=== PATIENT | male | born 1975 | race Caucasian/White ===

== ENCOUNTER 2017-06-12 01:35 | Emergency (ER) | payer SELFPAY ==
[~2017-06-12] VITALS: Ht 167.6 cm; Wt 60.0 kg
[2017-06-12 02:07] VITALS: BP 121/70; PULSE 98; RESP 16; TEMP 99.2; O2SAT 98
[2017-06-12] MEDS ORDERED: DIAZEPAM 5 MG TAB PO ONE (02:45)
[2017-06-12] MEDS ORDERED: KETOROLAC TROMETHAMINE 60 MG/2 ML (IM) VIAL IM ONE (02:45)
--- NOTE | 2017-06-12 03:11 | RADRPT ---
EXAM DATE/TIME: 06/12/2017 02:55 [facility] COMPARISON: PELVIS AP ONLY, September 02, 2015, 11:26. INDICATIONS : Worsening low back pain x 2 days, no new injury or fall. MEDICAL HISTORY : None. Previous Lumbar pain from fall 1 year ago SURGICAL HISTORY : Left femur, Right Shoulder ENCOUNTER: Initial ACUITY: 2 days PAIN SCORE: 8/10 LOCATION: Bilateral Lumbar FINDINGS: There are five non-rib bearing vertebral bodies. The vertebral bodies are in normal alignment withou t evidence of subluxation or scoliosis. The disc spaces are maintained. Minimal spurring is seen. T he posterior elements are intact without evidence of spondylolysis. The pedicles are intact. Bony m ineralization is normal. No fracture is identified. There is a femoral vishal seen on the lower lateral view. CONCLUSION: No acute disease. Lavell Pradhan MD on June 12, 2017 at 3:07 Board Certified Radiologist. This report was verified electronically.
--- NOTE | 2017-06-12 04:24 | PD ---
HPI Chief Complaint: Back/ Neck Pain or Injury Time Seen by Provider: 02:08 Travel History International Travel<30 days: No Contact w/Intl Traveler<30days: No Traveled to known affect area: No History of Present Illness HPI Patient is a 42-year-old male woke up tonight with severe right-sided lower back pain that radiates to his lower leg sciatic distribution. Denies trauma he denies heavy lifting he denies vesicles he denies any recent reason for straining his back. He also denies dysuria denies flank pain no history of kidney stones he is a thin 42-year-old. He reports that a few years back he had a severe fall with fractured back vertebra but this pain is nothing related to that pain and that was cleared over a year ago main complaint is severe stabbing sharp pain in the lower back right-sided radiation down to the right leg he took nothing for the pain. He has not seen another doctor for this injury PFSH Past Medical History Cardiovascular Problems: No Endocrine: No Genitourinary: No Immune Disorder: No Musculoskeletal: Yes (CHRONIC BACK PAIN S/P INJURY) Neurologic: No Reproductive: No Respiratory: No Social History Alcohol Use: No Tobacco Use: Yes Substance Use: No Allergies-Medications (Allergen,Severity, Reaction): Coded Allergies: No Known Allergies (Unverified Adverse Reaction, Unknown, 06/12/17) Reported Meds & Prescriptions Reported Meds & Active Scripts Active No Active Prescriptions or Reported Medications Review of Systems Except as stated in HPI: all other systems reviewed are Neg Musculoskeletal: Positive: Myalgias, Pain (right lower spinal area to leg radiation) Physical Exam Narrative GENERAL: thin body habitus multiple tatooes SKIN: Warm and dry. HEAD: Atraumatic. Normocephalic. EYES: Pupils equal and round. No scleral icterus. No injection or drainage. ENT: No nasal bleeding or discharge. Mucous membranes pink and moist. NECK: Trachea midline. No JVD. BACK lumbral tender right paraspinal to gluteal area CARDIOVASCULAR: Regular rate and rhythm. RESPIRATORY: No accessory muscle use. Clear to auscultation. Breath sounds equal bilaterally. GASTROINTESTINAL: Abdomen soft, non-tender, nondistended. Hepatic and splenic margins not palpable. MUSCULOSKELETAL: Extremities right leg lift elicited pain .. without clubbing , cyanosis, or edema. No obvious deformities. NEUROLOGICAL: Awake and alert. No obvious cranial nerve deficits. Motor grossly within normal limits. Five out of 5 muscle strength in the arms and legs. Normal speech. PSYCHIATRIC: Appropriate mood and affect; insight and judgment normal. Data Data Last Documented VS Vital Signs Date Time Temp Pulse Resp B/P (MAP) Pulse Ox O2 Delivery O2 Flow Rate FiO2 06/12/17 02:07 99.2 98 16 121/70 (87) 98 Orders Orders Ketorolac Inj (Toradol Inj) (06/12/17 02:45) Diazepam (Valium) (06/12/17 02:45) Spine, Lumbar Comp W/Obliq (06/12/17 ) Ed Discharge Order (06/12/17 05:02) [facility] Medical Decision Making Medical Screen Exam Complete: Yes Emergency Medical Condition: Yes Medical Record Reviewed: Yes Differential Diagnosis muscle spasm vs fracture radiculopathy , disc disease. Narrative Course Patient was given Toradol 60 IM 5 mg by mouth Valium I reviewed his prior films from 2016 where he had fractures of his thoracic spine the endplates at T10 and T11 however his pain tonight is not related to those injuries and x- rays done do not show any new changes safe to discharge home with ibuprofen a few Valium discharged follow-up as an outpatient Diagnosis Primary Impression: Radicular pain of lower extremity Patient Instructions: Acute Low Back Pain (ED), General Instructions Scripts Cyclobenzaprine (Flexeril) 10 Mg Tab 10 MG PO TID for Muscle Spasm, #20 TAB 0 Refills Prov: Jesús Mast MD 06/12/17 Ibuprofen (Ibuprofen) 600 Mg Tab 600 MG PO Q6H Y for Pain/Inflammation, #20 TAB 0 Refills Prov: Jesús Mast MD 06/12/17 Disposition: 01 DISCHARGE HOME Condition: Good Jesús Mast MD Jun 12, 2017 04:24
[2017-06-12] MEDS ORDERED: CYCL10TA PO (05:10)
[2017-06-12] MEDS ORDERED: IBUP-232 PO (05:10)
[2017-06-12] MEDS ORDERED: ACETAMINOPHEN/HYDROcodone 325 MG/5 MG TAB PO ONE (06:00)
[2017-06-12 07:05] VITALS: BP 124/83; PULSE 81; RESP 17; TEMP 97.8; O2SAT 98
[2017-06-12] MEDS ORDERED: MORPHINE SULFATE 2 MG/ML INJ IV PUSH ONE (07:30)
[2017-06-12] MEDS ORDERED: ONDANSETRON HCL 4 MG/2 ML VIAL IV PUSH ONE (07:30)
[2017-06-12 07:45] VITALS: RESP 16
--- NOTE | 2017-06-12 08:06 | RADRPT ---
EXAM DATE/TIME: 06/12/2017 07:26 [facility] COMPARISON: No previous studies available for comparison. INDICATIONS : Pain. MEDICAL HISTORY : None. SURGICAL HISTORY : Leg and shoulder. ENCOUNTER: Initial ACUITY: 1 day PAIN SCORE: 5/10 LOCATION: Paraspinal TECHNIQUE: Multiplanar multisequence MRI of the thoracic spine was performed. FINDINGS: VERTEBRA: Normal vertebral body height. Homogeneous marrow signal. ALIGNMENT: Normal. CORD: Normal position and configuration. T1-T2: Normal. T2-T3: The thecal sac has a normal diameter. No evidence of disc bulge or protrusion. T3-T4: The thecal sac has a normal diameter. No evidence of disc bulge or protrusion. T4-T5: The thecal sac has a normal diameter. No evidence of disc bulge or protrusion. T5-T6: The thecal sac has a normal diameter. No evidence of disc bulge or protrusion. T6-T7: The thecal sac has a normal diameter. No evidence of disc bulge or protrusion. T7-T8: The thecal sac has a normal diameter. No evidence of disc bulge or protrusion. T8-T9: The thecal sac has a normal diameter. No evidence of disc bulge or protrusion. T9-T10: The thecal sac has a normal diameter. No evidence of disc bulge or protrusion. T10-T11: There is a small superior endplate disc herniation at the level of the T10 with mild anterior bony pr oductive changes. The thecal sac has a normal diameter. No evidence of disc bulge or protrusion. T11-T12: The thecal sac has a normal diameter. No evidence of disc bulge or protrusion. T12-L1: The thecal sac has a normal diameter. No evidence of disc bulge or protrusion. Moderate facet degene rative change. CONCLUSION: Small superior endplate disc herniation at the level of T10 with anterior bony productive changes. No posterior component. Moderate facet hypertrophy present at the level of T12/L1. Otherwise negative e xam.. Parvin Rios MD on June 12, 2017 at 8:01 Board Certified Radiologist. This report was verified electronically.
--- NOTE | 2017-06-12 08:25 | RADRPT ---
EXAM DATE/TIME: 06/12/2017 07:43 [facility] COMPARISON: No previous studies available for comparison. INDICATIONS : Pain. MEDICAL HISTORY : None. SURGICAL HISTORY : Leg and shoulder. ENCOUNTER: Initial ACUITY: 1 day PAIN SCORE: 5/10 LOCATION: Paraspinal TECHNIQUE: Multiplanar multisequence MRI of the lumbar spine was performed without contrast. FINDINGS: The most caudal appearing lumbar vertebra is numbered as L5. VERTEBRAE: Homogeneous signal. Normal alignment. CONUS: Normal level and configuration. T12-L1: The thecal sac has a normal diameter. No evidence of disc bulge or protrusion. The neural foramina are patent bilaterally. Moderate facet hypertrophy. L1-L2: The thecal sac has a normal diameter. No evidence of disc bulge or protrusion. The neural foramina are patent bilaterally. Moderate to severe facet hypertrophy. L2-L3: Broad-based disc bulge extending into the neural foramina. Moderate to severe facet degenerative lock ges. Mild bilateral neural foraminal narrowing. L3-L4: Broad-based disc bulge with the disc extending into the neural foramina. Moderate to severe facet deg enerative change. Mild bilateral neural foraminal narrowing. L4-L5: Broad-based disc bulge. Moderate facet degenerative change. Mild bilateral neural foraminal narrowing . L5-S1: Broad-based posterior disc bulge. This extends towards the left neuroforamina contribute to mild left -sided neural foraminal narrowing and mild mass effect on the exiting left nerve root. CONCLUSION: Multilevel degenerative changes which are most significant within the region of the facet joints. Mild degenerative disc changes which extend to the neuroforamina contribute to mild bilateral neurofo raminal narrowing.. Parvin Rios MD on June 12, 2017 at 8:16 Board Certified Radiologist. This report was verified electronically.
[2017-06-12] MEDS ORDERED: PRED20 PO (09:18)
[2017-06-12] MEDS ORDERED: ZANT300T PO (09:18)
--- NOTE | 2017-06-12 09:19 | PD ---
Physical Exam Narrative Patient was seen by ED physician and signed out to me. Data Data Last Documented VS Vital Signs Date Time Temp Pulse Resp B/P (MAP) Pulse Ox O2 Delivery O2 Flow Rate FiO2 06/12/17 07:45 16 06/12/17 07:05 97.8 81 124/83 (97) 98 Room Air Orders Orders Ketorolac Inj (Toradol Inj) (06/12/17 02:45) Diazepam (Valium) (06/12/17 02:45) Spine, Lumbar Comp W/Obliq (06/12/17 ) Acetamin-Hydrocod 325-5 Mg ([place] 5-325 (06/12/17 06:00) Mri L Spine W/O Contrast (06/12/17 ) Mri T Spine W/O Contrast (06/12/17 ) Morphine Inj (Morphine Inj) (06/12/17 07:30) Ondansetron Inj (Zofran Inj) (06/12/17 07:30) MDM Supervised Visit with LYNDSEY: No Interpretation(s) Last Impressions Thoracic Spine MRI 06/12/17 0000 Signed Impressions: Service Date/Time: Monday, June 12, 2017 07:26 - CONCLUSION: Small superior endplate disc herniation at the level of T10 with anterior bony productive changes. No posterior component. Moderate facet hypertrophy present at the level of T12/L1. Otherwise negative exam.. Parvin Rios MD Lumbar Spine X-Ray 06/12/17 0000 Signed Impressions: Service Date/Time: Monday, June 12, 2017 02:55 - CONCLUSION: No acute disease. Lavell Pradhan MD Lumbar Spine MRI 06/12/17 0000 Signed Impressions: Service Date/Time: Monday, June 12, 2017 07:43 - CONCLUSION: Multilevel degenerative changes which are most significant within the region of the facet joints. Mild degenerative disc changes which extend to the neuroforamina contribute to mild bilateral neuroforaminal narrowing.. Parvin Rios MD Narrative Course Patient was given medication including Toradol, morphine, Lortab, Valium and Zofran. Patient also given Decadron 8 mg IV. Diagnosis Primary Impression: Radicular pain of lower extremity Additional Impression: Low back pain Qualified Codes: M54.5 - Low back pain Patient Instructions: General Instructions, Acute Low Back Pain (ED) Departure Forms: Tests/Procedures Additional Instruction: Take medications as needed for pain. Follow-up with orthopedist and personal physician. Return if worse. Scripts Ranitidine (Zantac) 300 Mg Tab 300 MG PO DAILY, #10 TAB 0 Refills Prov: Osmin Abdalla MD 06/12/17 Prednisone (Prednisone) 20 Mg Tab 20 MG PO DAILY, #10 TAB 0 Refills Prov: Osmin Abdalla MD 06/12/17 Cyclobenzaprine (Flexeril) 10 Mg Tab 10 MG PO TID for Muscle Spasm, #20 TAB 0 Refills Prov: Jesús Mast MD 06/12/17 Ibuprofen (Ibuprofen) 600 Mg Tab 600 MG PO Q6H Y for Pain/Inflammation, #20 TAB 0 Refills Prov: Jesús Mast MD 06/12/17 Disposition: 01 DISCHARGE HOME Condition: Good Osmin Abdalla MD Jun 12, 2017 09:19
[2017-06-12] MEDS ORDERED: DEXAMETHASONE SOD PHOS 4 MG/ML VIAL IV PUSH ONE (09:30)
[2017-06-12 09:35] VITALS: BP 130/77; TEMP 97.8
== END 2017-06-12 09:40 | disposition home or self-care (01) ==
LOC: NEPE 01:35
DX: M54.5 Low back pain (principal); Z72.0 Tobacco use
CPT/HCPCS: 72110; 72146; 72148; 96372; 96374; 96375; 99284; J1100; J1885; J2270; J2405

== ENCOUNTER 2017-07-15 13:00 | Inpatient (IN) | payer OTHER ==
[~2017-07-15] VITALS: Ht 170.2 cm; Wt 90.8 kg
[~2017-07-15 13:00] MED LIST: CYCL10TA PO; IBUP-232 PO; PRED20 PO; ZANT300T PO
[2017-07-15] MEDS ORDERED: GADODIAMIDE PF 287 MG/ML 5 ML VIAL (for RAD MRI) IVCONTRAST ONE (13:01)
[2017-07-15 13:32] VITALS: BP 103/61; PULSE 90; RESP 17; TEMP 98.6; O2SAT 100
[2017-07-15] MEDS ORDERED: KETOROLAC TROMETHAMINE 30 MG/ML (IVP) VIAL IVP ONE (16:15)
[2017-07-15] MEDS ORDERED: ONDANSETRON HCL 4 MG/2 ML VIAL IVP ONE (16:15)
[2017-07-15] MEDS ORDERED: MORPHINE SULFATE 4 MG/ML INJ IV PUSH ONE (16:15)
[2017-07-15 17:09] LABS: AUTOMATED NEUTROPHIL # 18.1 TH/MM3 (1.8-7.7); BASOPHIL # 0.1 TH/MM3 (0-0.2); BASOPHIL % 0.4 % (0.0-2.0); EOSINOPHIL % 0.1 % (0.0-4.0); HEMOGLOBIN 8.9 GM/DL (13.0-17.0); LYMPH % 10.9 % (9.0-44.0); LYMPHOCYTE # 2.4 TH/MM3 (1.0-4.8); MEAN CELL VOLUME 69.6 FL (80.0-100.0); MEAN CORPUSCULAR HEMOGLOBIN 22.9 PG (27.0-34.0); MEAN CORPUSCULAR HGB CONC 32.9 % (32.0-36.0); MEAN PLATELET VOLUME 7.4 FL (7.0-11.0); MONO % 4.9 % (0.0-8.0); MONOCYTE # 1.1 TH/MM3 (0-0.9); NEUT % 83.7 % (16.0-70.0); PLATELET COUNT 841 TH/MM3 (150-450); RED BLOOD COUNT 3.88 MIL/MM3 (4.50-5.90); WHITE BLOOD COUNT 21.6 TH/MM3 (4.0-11.0)
[2017-07-15 17:24] LABS: ALBUMIN 2.7 GM/DL (3.4-5.0); ALT (GPT) 17 U/L (12-78); AST (GOT) 24 U/L (15-37); BICARBONATE 24.5 MEQ/L (21.0-32.0); BLOOD UREA NITROGEN 9 MG/DL (7-18); CALCIUM 8.8 MG/DL (8.5-10.1); CHLORIDE 106 MEQ/L (98-107); CREATININE 0.69 MG/DL (0.60-1.30); GLOMERULAR FILTRATION RATE 126 ML/MIN (>89); GLUCOSE,RANDOM 96 MG/DL (74-106); SODIUM (NA) 137 MEQ/L (136-145)
[2017-07-15 17:26] LABS: ALKALINE PHOSPHATASE 109 U/L (45-117); TOTAL BILIRUBIN ADULT 0.4 MG/DL (0.2-1.0); TOTAL PROTEIN 8.7 GM/DL (6.4-8.2)
--- NOTE | 2017-07-15 17:54 | PD ---
HPI Chief Complaint: Back/ Neck Pain or Injury Time Seen by Provider: 15:55 Travel History International Travel<30 days: No Contact w/Intl Traveler<30days: No Traveled to known affect area: No History of Present Illness HPI 42-year-old male arrives complaining of low back pain. He states it has been painful for 5 months. He denies trauma. He reports IV drug abuse 6 months ago however nothing in the interim. He has had no fever. He denies incontinence of urine or stool. He reports lower extremity paresthesias. Back pain is constant. It is worse with palpation. No history of diabetes. No history of cancer. No use of immunomodulation agents. PFSH Past Medical History Cardiovascular Problems: No Diminished Hearing: No Endocrine: No Genitourinary: No Immune Disorder: No Musculoskeletal: Yes (CHRONIC BACK PAIN S/P INJURY) Neurologic: No Reproductive: No Respiratory: No Tetanus Vaccination: < 5 Years Influenza Vaccination: No Social History Alcohol Use: No Tobacco Use: Yes Substance Use: Yes (iv drug abuse) Allergies-Medications (Allergen,Severity, Reaction): Coded Allergies: No Known Allergies (Unverified Adverse Reaction, Unknown, 07/15/17) Reported Meds & Prescriptions Reported Meds & Active Scripts Active Zantac (Ranitidine HCl) 300 Mg Tab 300 Mg PO DAILY Prednisone 20 Mg Tab 20 Mg PO DAILY Flexeril (Cyclobenzaprine HCl) 10 Mg Tab 10 Mg PO TID Ibuprofen 600 Mg Tab 600 Mg PO Q6H PRN Review of Systems Except as stated in HPI: all other systems reviewed are Neg General / Constitutional: No: Fever Physical Exam Narrative GENERAL: 42-year-old male somewhat thin but cooperative pleasant Vital Signs Date Time Temp Pulse Resp B/P (MAP) Pulse Ox O2 Delivery O2 Flow Rate FiO2 07/15/17 13:32 98.6 90 17 103/61 (75) 100 SKIN: Warm and dry. No evidence of recent intravenous scarring. HEAD: Atraumatic. Normocephalic. EYES: Pupils equal and round. No scleral icterus. No injection or drainage. ENT: No nasal bleeding or discharge. Mucous membranes pink and moist. NECK: Trachea midline. No JVD. CARDIOVASCULAR: Regular rate and rhythm. RESPIRATORY: No accessory muscle use. Clear to auscultation. Breath sounds equal bilaterally. GASTROINTESTINAL: Abdomen soft, non-tender, nondistended. Hepatic and splenic margins not palpable. MUSCULOSKELETAL: Ambulatory. Minimal TTP lumbar spine. No gross deformity. NEUROLOGICAL: Awake and alert. No obvious cranial nerve deficits. Motor grossly within normal limits. Five out of 5 muscle strength in the arms and legs. Normal speech. PSYCHIATRIC: Appropriate mood and affect; insight and judgment normal. Data Data Last Documented VS Vital Signs Date Time Temp Pulse Resp B/P (MAP) Pulse Ox O2 Delivery O2 Flow Rate FiO2 07/15/17 13:32 98.6 90 17 103/61 (75) 100 Orders Orders Complete Blood Count With Diff (07/15/17 16:13) Comprehensive Metabolic Panel (07/15/17 16:13) Iv Access Insert/Monitor (07/15/17 16:13) Ecg Monitoring (07/15/17 16:13) Oximetry (07/15/17 16:13) Morphine Inj (Morphine Inj) (07/15/17 16:15) Ondansetron Inj (Zofran Inj) (07/15/17 16:15) Sodium Chloride 0.9% Flush (Ns Flush) (07/15/17 16:15) Ketorolac Inj (Toradol Inj) (07/15/17 16:15) Westergren Sedimentation Rate (07/15/17 16:13) Mri L Spine W&W/O Contrast (07/15/17 ) Mri T Spine W & W/O Contrast (07/15/17 ) Morphine Inj (Morphine Inj) (07/15/17 18:45) Vancomycin Inj (Vancomycin Inj) (07/15/17 18:45) Ceftriaxone Inj (Rocephin Inj) (07/15/17 18:45) Blood Culture (07/15/17 18:44) Mri C Spine W&W/O Contrast (07/15/17 ) Labs Laboratory Tests Test 07/15/17 16:35 White Blood Count 21.6 TH/MM3 Red Blood Count 3.88 MIL/MM3 Hemoglobin 8.9 GM/DL Hematocrit 27.0 % Mean Corpuscular Volume 69.6 FL Mean Corpuscular Hemoglobin 22.9 PG Mean Corpuscular Hemoglobin Concent 32.9 % Red Cell Distribution Width 17.0 % Platelet Count 841 TH/MM3 Mean Platelet Volume 7.4 FL Neutrophils (%) (Auto) 83.7 % Lymphocytes (%) (Auto) 10.9 % Monocytes (%) (Auto) 4.9 % Eosinophils (%) (Auto) 0.1 % Basophils (%) (Auto) 0.4 % Neutrophils # (Auto) 18.1 TH/MM3 Lymphocytes # (Auto) 2.4 TH/MM3 Monocytes # (Auto) 1.1 TH/MM3 Eosinophils # (Auto) 0.0 TH/MM3 Basophils # (Auto) 0.1 TH/MM3 CBC Comment DIFF FINAL Differential Comment Erythrocyte Sedimentation Rate GREATER THAN 140 mm/hr Blood Urea Nitrogen 9 MG/DL Creatinine 0.69 MG/DL Random Glucose 96 MG/DL Total Protein 8.7 GM/DL Albumin 2.7 GM/DL Calcium Level 8.8 MG/DL Alkaline Phosphatase 109 U/L Aspartate Amino Transf (AST/SGOT) 24 U/L Alanine Aminotransferase (ALT/SGPT) 17 U/L Total Bilirubin 0.4 MG/DL Sodium Level 137 MEQ/L Potassium Level 3.6 MEQ/L Chloride Level 106 MEQ/L Carbon Dioxide Level 24.5 MEQ/L Anion Gap 7 MEQ/L Estimat Glomerular Filtration Rate 126 ML/MIN MDM Medical Decision Making Medical Screen Exam Complete: Yes Emergency Medical Condition: Yes Medical Record Reviewed: Yes Differential Diagnosis Epidural abscess, chronic pain, fracture DJD Narrative Course CBC & BMP Diagram 07/15/17 16:35 Total Protein 8.7 H, Albumin 2.7 L, Calcium Level 8.8, Alkaline Phosphatase 109 , Aspartate Amino Transf (AST/SGOT) 24, Alanine Aminotransferase (ALT/SGPT) 17, Total Bilirubin 0.4 Rocephin vancomycin started. Blood cultures drawn. Patient care turned over to Dr. Gonzalez at 7:00 PM. Shaheen Uriostegui MD Jul 15, 2017 17:54
[2017-07-15] MEDS ORDERED: MORPHINE SULFATE 8 MG/ML INJ IV PUSH ONE (18:45)
[2017-07-15] MEDS ORDERED: VANCOMYCIN INJ 1,750 MG in SODIUM CHLORID 0.9% 500 ML INJ 500 ML IV ONE (18:45)
[2017-07-15] MEDS ORDERED: cefTRIAXone INJ 2,000 MG in SODIUM CHLORIDE 0.9% INJ 100 ML IV ONE (18:45)
[2017-07-15] MEDS ORDERED: HYDROmorphone HCL PF 2 MG/ML VIAL IV PUSH ONE (19:30)
[2017-07-15 20:50] VITALS: BP 120/64; PULSE 89; RESP 16; O2SAT 100
--- NOTE | 2017-07-15 21:08 | RADRPT ---
EXAM DATE/TIME: 07/15/2017 19:39 [facility] COMPARISON: MRI THORACIC SPINE W/O CONTRAST, June 12, 2017, 7:26. INDICATIONS : Pain. Osteomyelitis. CONTRAST: 11 cc Omniscan (gadodiamide) IV MEDICAL HISTORY : IV drug abuse. SURGICAL HISTORY : Right femur and shoulder. Enhancing paravertebral tissue is also noted to surrounding the T10 and T11 vertebra bodies are. ENCOUNTER: Initial ACUITY: 1 day PAIN SCORE: 5/10 LOCATION: Back. TECHNIQUE: Multiplanar multisequence MRI of the thoracic spine was performed. FINDINGS: There is evidence of diffuse enhancement involving the lower two thirds of the T10 vertebral body and the upper two thirds of the T11 vertebral body suggestive of acute osteomyelitis likely surrounding an acute discitis at T10-11. There is enhancing epidural tissue along the left anterior lateral aspec t of the thecal sac at this level which results in slight effacement of the thoracic cord and moderat e spinal stenosis at this level. There is kyphosis of the thoracic spine at the T10-11 level. There i s also acute compression deformities involving T10 and T11. The remainder of the thoracic spine is unremarkable without fracture or enhancement. No focal disc he rniation or spinal stenosis is noted within the other levels. CONCLUSION: Diffuse enhancement involving the lower two thirds of the T10 vertebral body and the upper two thirds of the T11 vertebral body suggestive of acute osteomyelitis likely surrounding an ac [place] discitis at T10-11. There is enhancing epidural tissue along the left anterior lateral aspect of the thecal sac at this level which results in slight effacement of the thoracic cord and moderate spi nal stenosis at this level. There is kyphosis of the thoracic spine at the T10-11 level. There is als o acute compression deformities involving T10 and T11. Yonatan Blake MD on July 15, 2017 at 21:00 Board Certified Radiologist. This report was verified electronically.
--- NOTE | 2017-07-15 21:19 | RADRPT ---
EXAM DATE/TIME: 07/15/2017 19:39 [facility] COMPARISON: No previous studies available for comparison. INDICATIONS : Pain. Osteomyelitis. CONTRAST: 11 cc Omniscan (gadodiamide) IV MEDICAL HISTORY : IV drug abuse. SURGICAL HISTORY : Right shoulder and right femur. ENCOUNTER: Initial ACUITY: 3 weeks PAIN SCORE: 5/10 LOCATION: Back. TECHNIQUE: Multiplanar multisequence MRI of the lumbar spine was performed with and without contrast. FINDINGS: There is enhancement of the lower two thirds of L3 and the upper two thirds of L4 consistent with pro bable acute osteomyelitis surrounding discitis at L3-4. There is also enhancing epidural tissue poste rior to the L3-4 level which results in slight effacement of the anterior thecal sac and mild spinal stenosis at this level. Paravertebral enhancing soft tissue is noted surrounding L3 and L4. Severe bi lateral foraminal narrowing is noted at L3-4. Moderate to severe bilateral foraminal narrowing is not ed at L4-5. CONCLUSION: 1. Enhancement of the lower two thirds of L3 and the upper two thirds of L4 consistent with probable acute osteomyelitis surrounding discitis at L3-4. There is also enhancing epidural tissue posterior t o the L3-4 level which results in slight effacement of the anterior thecal sac and mild spinal stenos is at this level. Paravertebral enhancing soft tissue is noted surrounding L3 and L4. 2. Severe bilateral foraminal narrowing is noted at L3-4. 3. Moderate to severe bilateral foraminal narrowing is noted at L4-5. Yonatan Blake MD on July 15, 2017 at 21:14 Board Certified Radiologist. This report was verified electronically.
--- NOTE | 2017-07-15 21:24 | RADRPT ---
EXAM DATE/TIME: 07/15/2017 19:39 [facility] COMPARISON: No previous studies available for comparison. INDICATIONS : Pain. CONTRAST: 11 cc Omniscan (gadodiamide) IV MEDICAL HISTORY : IV Drug abuse. SURGICAL HISTORY : Right leg and right shoulder. ENCOUNTER: Initial ACUITY: 1 month PAIN SCORE: 5/10 LOCATION: Back. in the future if there is a medical necessity for gadolinium. TECHNIQUE: Multiplanar, multisequence MRI examination of the cervical spine was performed. FINDINGS: VERTEBRAE: Normal vertebral body height. Homogeneous marrow signal. ALIGNMENT: No evidence of subluxation. CORD: Normal configuration and signal. POST FOSSA: The cerebellar tonsils are normal in position. POST-CONTRAST: No abnormal areas of enhancement are seen. C2-C3: The thecal sac has a normal configuration. There is no evidence of disc herniation or spinal canal stenosis. The neural foramina are patent bilaterally. C3-C4: The thecal sac has a normal configuration. There is no evidence of disc herniation or spinal canal s tenosis. The neural foramina are patent bilaterally. C4-C5: The thecal sac has a normal configuration. There is no evidence of disc herniation or spinal canal s tenosis. The neural foramina are patent bilaterally. C5-C6: Minimal circumferential spinal stenosis and mild bilateral frontal narrowing is noted secondary to di ffuse disc bulge, uncovertebral joint spurring and facet joint hypertrophy. No focal disc herniation is noted. C6-C7: There is a broad-based left paracentral/lateral disc bulge as well as facet joint hypertrophy and unc overtebral joint spurring resulting in mild spinal stenosis, mild to moderate left neuroforaminal sabrina rowing and mild right neuroforaminal narrowing. C7-T1: The thecal sac has a normal configuration. There is no evidence of disc herniation or spinal canal s tenosis. The neural foramina are patent bilaterally. CONCLUSION: 1. No evidence of acute osteomyelitis or acute discitis within the cervical spine. 2. Mild spinal stenosis, mild to moderate left neuroforaminal narrowing and mild right neural foramin al narrowing at C6-7 secondary to broad-based left paracentral/lateral disc bulge, facet joint hypert rophy and uncovertebral joint spurring. 3. Minimal spinal stenosis and mild bilateral foraminal narrowing at C5-6. 4. Cervical spondylosis at C5-6 and C6-7. Yonatan Blake MD on July 15, 2017 at 21:18 Board Certified Radiologist. This report was verified electronically.
--- NOTE | 2017-07-15 21:33 | PD ---
Data Data Last Documented VS Vital Signs Date Time Temp Pulse Resp B/P (MAP) Pulse Ox O2 Delivery O2 Flow Rate FiO2 07/15/17 20:50 89 16 120/64 (82) 100 Room Air 07/15/17 13:32 98.6 Orders Orders Complete Blood Count With Diff (07/15/17 16:13) Comprehensive Metabolic Panel (07/15/17 16:13) Iv Access Insert/Monitor (07/15/17 16:13) Ecg Monitoring (07/15/17 16:13) Oximetry (07/15/17 16:13) Morphine Inj (Morphine Inj) (07/15/17 16:15) Ondansetron Inj (Zofran Inj) (07/15/17 16:15) Sodium Chloride 0.9% Flush (Ns Flush) (07/15/17 16:15) Ketorolac Inj (Toradol Inj) (07/15/17 16:15) Westergren Sedimentation Rate (07/15/17 16:13) Mri L Spine W&W/O Contrast (07/15/17 ) Mri T Spine W & W/O Contrast (07/15/17 ) Morphine Inj (Morphine Inj) (07/15/17 18:45) Vancomycin Inj (Vancomycin Inj) (07/15/17 18:45) Ceftriaxone Inj (Rocephin Inj) (07/15/17 18:45) Blood Culture (07/15/17 18:44) Mri C Spine W&W/O Contrast (07/15/17 ) Hydromorphone Pf Inj (Dilaudid Pf Inj) (07/15/17 19:30) Gadodiamide Pf Inj (Omniscan Pf Inj) (07/15/17 13:01) Labs Laboratory Tests Test 07/15/17 16:35 White Blood Count 21.6 TH/MM3 Red Blood Count 3.88 MIL/MM3 Hemoglobin 8.9 GM/DL Hematocrit 27.0 % Mean Corpuscular Volume 69.6 FL Mean Corpuscular Hemoglobin 22.9 PG Mean Corpuscular Hemoglobin Concent 32.9 % Red Cell Distribution Width 17.0 % Platelet Count 841 TH/MM3 Mean Platelet Volume 7.4 FL Neutrophils (%) (Auto) 83.7 % Lymphocytes (%) (Auto) 10.9 % Monocytes (%) (Auto) 4.9 % Eosinophils (%) (Auto) 0.1 % Basophils (%) (Auto) 0.4 % Neutrophils # (Auto) 18.1 TH/MM3 Lymphocytes # (Auto) 2.4 TH/MM3 Monocytes # (Auto) 1.1 TH/MM3 Eosinophils # (Auto) 0.0 TH/MM3 Basophils # (Auto) 0.1 TH/MM3 CBC Comment DIFF FINAL Differential Comment Erythrocyte Sedimentation Rate GREATER THAN 140 mm/hr Blood Urea Nitrogen 9 MG/DL Creatinine 0.69 MG/DL Random Glucose 96 MG/DL Total Protein 8.7 GM/DL Albumin 2.7 GM/DL Calcium Level 8.8 MG/DL Alkaline Phosphatase 109 U/L Aspartate Amino Transf (AST/SGOT) 24 U/L Alanine Aminotransferase (ALT/SGPT) 17 U/L Total Bilirubin 0.4 MG/DL Sodium Level 137 MEQ/L Potassium Level 3.6 MEQ/L Chloride Level 106 MEQ/L Carbon Dioxide Level 24.5 MEQ/L Anion Gap 7 MEQ/L Estimat Glomerular Filtration Rate 126 ML/MIN MDM Supervised Visit with LYNDSEY: No Narrative Course The patient was initially evaluated by the previous provider and signed out to me at the beginning of my shift pending MRI of the entire spine and disposition. See his note for further details. Briefly this is a 42-year-old male with history of IV drug use/abuse, here for evaluation of lower back pain. The patient states that he has had this lower back pain for months, however it has recently worsened. He reports that he last used IV drugs 2 months ago. No urinary or bowel incontinence or retention. No paresthesias or motor deficits. Pain is constant, severe, worse with movement and palpation. CBC: WBC 21.6, hemoglobin 8.9, hematocrit 27, platelets 841, neutrophils 83.7%. CMP is unremarkable. ESR is greater than 140. MRI C-spine: CONCLUSION: 1. No evidence of acute osteomyelitis or acute discitis within the cervical spine. 2. Mild spinal stenosis, mild to moderate left neuroforaminal narrowing and mild right neural foraminal narrowing at C6-7 secondary to broad-based left paracentral/lateral disc bulge, facet joint hypertrophy and uncovertebral joint spurring. 3. Minimal spinal stenosis and mild bilateral foraminal narrowing at C5-6. 4. Cervical spondylosis at C5-6 and C6-7. MRI T-spine: CONCLUSION: Diffuse enhancement involving the lower two thirds of the T10 vertebral body and the upper two thirds of the T11 vertebral body suggestive of acute osteomyelitis likely surrounding an acute discitis at T10-11. There is enhancing epidural tissue along the left anterior lateral aspect of the thecal sac at this level which results in slight effacement of the thoracic cord and moderate spinal stenosis at this level. There is kyphosis of the thoracic spine at the T10-11 level. There is also acute compression deformities involving T10 and T11. MRI L-spine: CONCLUSION: 1. Enhancement of the lower two thirds of L3 and the upper two thirds of L4 consistent with probable acute osteomyelitis surrounding discitis at L3-4. There is also enhancing epidural tissue posterior to the L3-4 level which results in slight effacement of the anterior thecal sac and mild spinal stenosis at this level. Paravertebral enhancing soft tissue is noted surrounding L3 and L4. 2. Severe bilateral foraminal narrowing is noted at L3-4. 3. Moderate to severe bilateral foraminal narrowing is noted at L4-5. The patient was empirically started on IV vancomycin and IV Rocephin by the previous provider for suspected osteomyelitis/epidural abscess. Case discussed with on-call neurosurgeon Dr. Duval who will see the patient in consultation. The patient will be admitted to the spinneret cleaner service. Case discussed with spinneret cleaner Dr. Oneal who will admit the patient to his service. Diagnosis Primary Impression: Discitis Qualified Codes: M46.40 - Discitis, unspecified, site unspecified Additional Impressions: Epidural abscess IV drug abuse Admitting Information Admitting Physician Requests: Admit Rigo Gonzalez MD Jul 15, 2017 21:33
[2017-07-15 22:00] VITALS: BP 116/73; PULSE 86; RESP 16; O2SAT 100
[2017-07-15] MEDS ORDERED: ONDANSETRON HCL 4 MG/2 ML VIAL IV PUSH PRN (22:00)
[2017-07-15] MEDS ORDERED: POTASSIUM PHOSPHATE INJ 30 MMOL in SODIUM CHLOR 0.9% 250 ML INJ 250 ML IV PRN (22:00)
[2017-07-15] MEDS ORDERED: MAGNESIUM OXIDE 400 MG TAB PO PRN (22:00)
[2017-07-15] MEDS ORDERED: POTASSIUM CHLOR 40 MEQ PREMIX 100 ML IV PRN ×2 (22:00)
[2017-07-15] MEDS ORDERED: MAGNESIUM SULFATE INJ 2 GM in SODIUM CHLORIDE 0.9% INJ 96 ML IV PRN (22:00)
[2017-07-15] MEDS ORDERED: MAGNESIUM SULFATE INJ 4 GM in SODIUM CHLORIDE 0.9% INJ 92 ML IV PRN (22:00)
[2017-07-15] MEDS ORDERED: SODIUM PHOSPHATE INJ 30 MMOL in SODIUM CHLOR 0.9% 250 ML INJ 240 ML IV PRN (22:00)
[2017-07-15] MEDS ORDERED: POTASSIUM CHLORIDE 25 MEQ EFFERVESCENT TAB PO PRN (22:00)
[2017-07-15] MEDS ORDERED: MISCELLANEOUS NURSING INFORMATION XX SCH (22:00)
[2017-07-15] MEDS ORDERED: RESP: ALBUTEROL 2.5 MG/IPRATROPIUM 0.5 MG NEB (PRN) INH (22:00)
[2017-07-15] MEDS ORDERED: POTASSIUM CHLOR 20 MEQ PREMIX 100 ML IV PRN ×2 (22:00)
[2017-07-15] MEDS ORDERED: POTASSIUM PHOSPHATE MONOBASIC 500 MG TAB PO/TUBE PRN (22:00)
[2017-07-15] MEDS ORDERED: CHLORHEXIDINE GLUCONATE 2 % 1 PACK (2 CLOTHS) TOP PRN (22:00)
[2017-07-15] MEDS ORDERED: POTASSIUM PHOSPHATE MONOBASIC 500 MG TAB PO PRN (22:00)
--- NOTE | 2017-07-15 22:07 | HHI.HP ---
HPI Service Critical Care Medicine Primary Care Physician No Primary Care Physician Admission Diagnosis discitis, epidural abscess Diagnosis: (1) Discitis (2) IV drug abuse Chief Complaint: back pain Travel History International Travel<30 Days: No Contact w/Intl Traveler <30 Da: No Traveled to Known Affected Are: No History of Present Illness This is a 42-year-old male with history of IV drug abuse who presents with new onset and worsening back pain. He states that his lower back has been hurting for the approximately last 5 months, although it is been worse acutely over the last week. He denies fever, chills. Does endorse IV drug abuse, most recently approximately 6 months ago. He does endorse lower extremity paresthesias over the last 1-2 days. Denies lower extremity weakness. Denies loss of bowel or bladder control. In the emergency department MRI of the total spine demonstrated T10 as well as L3 enhancement suggestive of acute osteomyelitis and discitis. Review of Systems Constitutional: DENIES: Fatigue, Fever, Weight loss, Chills Past Family Social History Allergies: Coded Allergies: No Known Allergies (Unverified Adverse Reaction, Unknown, 07/15/17) Past Medical History Chronic back pain status post injury IV drug abuse Past Surgical History No recent surgical procedures Reported Medications Zantac (Ranitidine HCl) 300 Mg Tab 300 Mg PO DAILY Prednisone 20 Mg Tab 20 Mg PO DAILY Flexeril (Cyclobenzaprine HCl) 10 Mg Tab 10 Mg PO TID Ibuprofen 600 Mg Tab 600 Mg PO Q6H PRN Active Ordered Medications See MAR Family History Reviewed and found to be noncontributory to his acute illness Social History Positive for tobacco. Positive for IV drug abuse: Last admitted use was 6 months ago. Physical Exam Vital Signs Vital Signs Date Time Temp Pulse Resp B/P (MAP) Pulse Ox O2 Delivery O2 Flow Rate FiO2 07/15/17 20:50 89 16 120/64 (82) 100 Room Air 07/15/17 13:32 98.6 90 17 103/61 (75) 100 Physical Exam GENERAL: Middle-aged male, lying in bed, in distress due to back pain HEENT: Normocephalic. Atraumatic. Pupils equal, round, reactive, conjugate. Mucous membranes are moist NECK: Trachea is midline. There is no JVD. CHEST: Equal chest rise. Room air. CARDIOVASCULAR: Normal rate, regular rhythm. Sinus by telemetry ABDOMEN: Soft, nontender, nondistended. No guarding. MUSCULOSKELETAL: Pulses 2+. No peripheral edema. Point tenderness over midline back, particularly around the L3 level in the lumbar back. No paraspinous tenderness. NEUROLOGICAL: RASS 0. GCS 15. Follows commands in all 4 extremities. No focal deficits. Sensation grossly intact. Patient did complain of paresthesias on presenting to the ER, however I cannot objectively find any evidence of paresthesias in the lower extremities. Laboratory Laboratory Tests Test 07/15/17 16:35 White Blood Count 21.6 Red Blood Count 3.88 Hemoglobin 8.9 Hematocrit 27.0 Mean Corpuscular Volume 69.6 Mean Corpuscular Hemoglobin 22.9 Mean Corpuscular Hemoglobin Concent 32.9 Red Cell Distribution Width 17.0 Platelet Count 841 Mean Platelet Volume 7.4 Neutrophils (%) (Auto) 83.7 Lymphocytes (%) (Auto) 10.9 Monocytes (%) (Auto) 4.9 Eosinophils (%) (Auto) 0.1 Basophils (%) (Auto) 0.4 Neutrophils # (Auto) 18.1 Lymphocytes # (Auto) 2.4 Monocytes # (Auto) 1.1 Eosinophils # (Auto) 0.0 Basophils # (Auto) 0.1 CBC Comment DIFF FINAL Differential Comment Erythrocyte Sedimentation Rate GREATER THAN 140 Blood Urea Nitrogen 9 Creatinine 0.69 Random Glucose 96 Total Protein 8.7 Albumin 2.7 Calcium Level 8.8 Alkaline Phosphatase 109 Aspartate Amino Transf (AST/SGOT) 24 Alanine Aminotransferase (ALT/SGPT) 17 Total Bilirubin 0.4 Sodium Level 137 Potassium Level 3.6 Chloride Level 106 Carbon Dioxide Level 24.5 Anion Gap 7 Estimat Glomerular Filtration Rate 126 Date/Time Source Procedure Growth Status 07/15/17 20:55 Blood Peripheral Aerobic Blood Culture Pending Received 07/15/17 20:55 Blood Peripheral Anaerobic Blood Culture Pending Received Result Diagram: 07/15/17 1635 07/15/17 1635 Imaging Last Impressions Thoracic Spine MRI 07/15/17 0000 Signed Impressions: Service Date/Time: July 19:39 - CONCLUSION: Diffuse enhancement involving the lower two thirds of the T10 vertebral body and the upper two thirds of the T11 vertebral body suggestive of acute osteomyelitis likely surrounding an acute discitis at T10-11. There is enhancing epidural tissue along the left anterior lateral aspect of the thecal sac at this level which results in slight effacement of the thoracic cord and moderate spinal stenosis at this level. There is kyphosis of the thoracic spine at the T10-11 level. There is also acute compression deformities involving T10 and T11. Yonatan Blake MD Lumbar Spine MRI 07/15/17 0000 Signed Impressions: Service Date/Time: July 19:39 - CONCLUSION: 1. Enhancement of the lower two thirds of L3 and the upper two thirds of L4 consistent with probable acute osteomyelitis surrounding discitis at L3-4. There is also enhancing epidural tissue posterior to the L3-4 level which results in slight effacement of the anterior thecal sac and mild spinal stenosis at this level. Paravertebral enhancing soft tissue is noted surrounding L3 and L4. 2. Severe bilateral foraminal narrowing is noted at L3-4. 3. Moderate to severe bilateral foraminal narrowing is noted at L4-5. Yonatan Blake MD Chest X-Ray 07/15/17 0000 Signed Impressions: Service Date/Time: July 22:12 - CONCLUSION: 1. No acute cardiopulmonary disease. 2. Compression fractures and kyphosis at T10 and T11 consistent with known osteomyelitis and discitis at these levels. Yonatan Blake MD Cervical Spine MRI 07/15/17 0000 Signed Impressions: Service Date/Time: July 19:39 - CONCLUSION: 1. No evidence of acute osteomyelitis or acute discitis within the cervical spine. 2. Mild spinal stenosis, mild to moderate left neuroforaminal narrowing and mild right neural foraminal narrowing at C6-7 secondary to broad-based left paracentral/lateral disc bulge, facet joint hypertrophy and uncovertebral joint spurring. 3. Minimal spinal stenosis and mild bilateral foraminal narrowing at C5-6. 4. Cervical spondylosis at C5-6 and C6-7. Yonatan Blake MD Septic Shock Reassessment Septic shock perfusion: reassessment completed Caprini VTE Risk Assessment Caprini VTE Risk Assessment: Mod/High Risk (score >= 2) VTE Pharm Contraindication: Spinal surgery Caprini Risk Assessment Model Point Value = 1 Point Value = 2 Point Value = 3 Point Value = 5 Age 41-60 Minor surgery BMI > 25 kg/m2 Swollen legs Varicose veins or History of unexplained or recurrent spontaneous Oral contraceptives or hormone replacement Sepsis (< 1 month) Serious lung disease, including pneumonia (< 1 month) Abnormal pulmonary function Acute myocardial infarction Congestive heart failure (< 1 month) History of inflammatory bowel disease Medical patient at bed rest Age 61-74 Arthroscopic surgery Major open surgery (> 45 min) Laparoscopic surgery (> 45 min) Malignancy Confined to bed (> 72 hours) Immobilizing plaster cast Central venous access Age >= 75 History of VTE Family history of VTE Factor V Leiden Prothrombin [id number] Lupus anticoagulant Anticardiolipin antibodies Elevated serum homocysteine Heparin-induced thrombocytopenia Other congenital or acquired thrombophilia Stroke (< 1 month) Elective arthroplasty Hip, pelvis, or leg fracture Acute spinal cord injury (< 1 month) Prophylaxis Regimen Total Risk Factor Score Risk Level Prophylaxis Regimen 0-1 Low Early ambulation 2 Moderate Order ONE of the following: *Sequential Compression Device (SCD) *Heparin 5000 units SQ BID 3-4 Higher Order ONE of the following medications: *Heparin 5000 units SQ TID *Enoxaparin/Lovenox 40 mg SQ daily (WT < 150 kg, CrCl > 30 mL/min) *Enoxaparin/Lovenox 30 mg SQ daily (WT < 150 kg, CrCl > 10-29 mL/min) *Enoxaparin/Lovenox 30 mg SQ BID (WT < 150 kg, CrCl > 30 mL/min) AND/OR *Sequential Compression Device (SCD) 5 or more Highest Order ONE of the following medications: *Heparin 5000 units SQ TID (Preferred with Epidurals) *Enoxaparin/Lovenox 40 mg SQ daily (WT < 150 kg, CrCl > 30 mL/min) *Enoxaparin/Lovenox 30 mg SQ daily (WT < 150 kg, CrCl > 10-29 mL/min) *Enoxaparin/Lovenox 30 mg SQ BID (WT < 150 kg, CrCl > 30 mL/min) AND *Sequential Compression Device (SCD) Assessment and Plan Assessment and Plan Assessment: 42-year-old male with active IV drug abuse and new onset back pain found to have low thoracic and high lumbar acute osteomyelitis/discitis of the spine. This is most certainly secondary to IV drug abuse and infective endocarditis. Will order 2D echocardiogram. We will place him on empiric vancomycin and Zosyn. I have consulted infectious disease to follow along as he will need at least 6-8 weeks of IV antibiotics. Neurosurgery has been consulted to evaluate his discitis for possible intervention. Active problems: T-spine/L-spine discitis/osteomyelitis IV drug abuse Presumed infective endocarditis as a source for his osteomyelitis Acute back pain Plan: 2D echo to assess for endocarditis Infectious disease consultation to follow along for long-term antibiotic plan Vancomycin and Zosyn Follow blood cultures Neurosurgery consultation Frequent neuro checks Admit to ICU. If remains stable in the ICU for 24 hours would likely be able to transition to floor status he continues to improve Watch for substance withdrawal IV pain control Regular diet as tolerated Admit to ICU Problem Qualifiers (1) Discitis: Qualified Codes: M46.40 - Discitis, unspecified, site unspecified Raphael Oneal MD Jul 15, 2017 22:07
--- NOTE | 2017-07-15 23:30 | RADRPT ---
EXAM DATE/TIME: 07/15/2017 22:12 [facility] COMPARISON: MRI THORACIC SPINE W & W/O CONTRAST, July 15, 2017, 19:39. INDICATIONS : Endocarditis. Evaluate for septic pulmonary emboli. Patient complains of lower back pain for 5 weeks . MEDICAL HISTORY : IV drug abuse. SURGICAL HISTORY : Left femur, Right Shoulder ENCOUNTER: Initial ACUITY: 1 month PAIN SCORE: 0/10 LOCATION: Bilateral chest FINDINGS: The heart is normal. The pulmonary vascular pattern is normal. The lungs are clear. Compression fract ures and kyphosis are noted at T10 and T11 consistent with known osteomyelitis and discitis at these levels. CONCLUSION: 1. No acute cardiopulmonary disease. 2. Compression fractures and kyphosis at T10 and T11 consistent with known osteomyelitis and discitis at these levels. Yonatan Blake MD on July 15, 2017 at 23:27 Board Certified Radiologist. This report was verified electronically.
[2017-07-16] VITALS (9 sets, daily range): BP systolic 106–126; BP diastolic 55–81; PULSE 75–100; RESP 16–22; TEMP 98.8–101.4; O2SAT 99–100
[2017-07-16] MEDS: SODIUM CHLOR 0.9% 1000 ML INJ 1,000 ML IV SCH ×3 (02:02→13:45)
[2017-07-16] MEDS: ACETAMINOPHEN 325 MG TAB PO PRN ×2 (02:03→16:31)
[2017-07-16] MEDS: CHLORHEXIDINE GLUCONATE 2 % 1 PACK (2 CLOTHS) TOP SCH (04:00)
[2017-07-16 04:17] LABS: HEMATOCRIT 24.6 % (39.0-51.0); MEAN CELL VOLUME 69.7 FL (80.0-100.0); MEAN CORPUSCULAR HEMOGLOBIN 22.6 PG (27.0-34.0); MEAN CORPUSCULAR HGB CONC 32.5 % (32.0-36.0); MEAN PLATELET VOLUME 7.3 FL (7.0-11.0); PLATELET COUNT 784 TH/MM3 (150-450); RED BLOOD COUNT 3.53 MIL/MM3 (4.50-5.90); RED CELL DISTRIBUTION WIDTH 16.6 % (11.6-17.2); WHITE BLOOD COUNT 17.8 TH/MM3 (4.0-11.0)
[2017-07-16 04:44] LABS: BICARBONATE 26.4 MEQ/L (21.0-32.0); CALCIUM 8.4 MG/DL (8.5-10.1); CREATININE 0.67 MG/DL (0.60-1.30)
[2017-07-16] MEDS: HYDROmorphone HCL PF 2 MG/ML VIAL IV PUSH PRN ×4 (08:09→21:42)
--- NOTE | 2017-07-16 08:59 | HHI.CCPN ---
Subjective Remarks/Hospital Course This is a 42-year-old male with history of IV drug abuse who presents with new onset and worsening back pain. He states that his lower back has been hurting for the approximately last 5 months, although it is been worse acutely over the last week. He denies fever, chills. Does endorse IV drug abuse, most recently approximately 6 months ago. He does endorse lower extremity paresthesias over the last 1-2 days. Denies lower extremity weakness. Denies loss of bowel or bladder control. In the emergency department MRI of the total spine demonstrated T10 as well as L3 enhancement suggestive of acute osteomyelitis and discitis. 07/16: Stable hemodynamics. For attempt at culture today in IR. Objective Vital Signs Date Time Temp Pulse Resp B/P (MAP) Pulse Ox O2 Delivery O2 Flow Rate FiO2 07/16/17 04:00 98.8 85 19 114/75 (88) 100 07/16/17 01:00 Room Air 100 Intake and Output 07/16/17 07/16/17 07/17/17 08:00 16:00 00:00 Intake Total 962 ml Output Total 400 ml Balance 562 ml Result Diagram: 07/16/17 0400 07/16/17 0400 Imaging Last Impressions Thoracic Spine MRI 07/15/17 0000 Signed Impressions: Service Date/Time: July 19:39 - CONCLUSION: Diffuse enhancement involving the lower two thirds of the T10 vertebral body and the upper two thirds of the T11 vertebral body suggestive of acute osteomyelitis likely surrounding an acute discitis at T10-11. There is enhancing epidural tissue along the left anterior lateral aspect of the thecal sac at this level which results in slight effacement of the thoracic cord and moderate spinal stenosis at this level. There is kyphosis of the thoracic spine at the T10-11 level. There is also acute compression deformities involving T10 and T11. Yonatan Blake MD Lumbar Spine MRI 07/15/17 0000 Signed Impressions: Service Date/Time: July 19:39 - CONCLUSION: 1. Enhancement of the lower two thirds of L3 and the upper two thirds of L4 consistent with probable acute osteomyelitis surrounding discitis at L3-4. There is also enhancing epidural tissue posterior to the L3-4 level which results in slight effacement of the anterior thecal sac and mild spinal stenosis at this level. Paravertebral enhancing soft tissue is noted surrounding L3 and L4. 2. Severe bilateral foraminal narrowing is noted at L3-4. 3. Moderate to severe bilateral foraminal narrowing is noted at L4-5. Yonatan Blake MD Chest X-Ray 07/15/17 0000 Signed Impressions: Service Date/Time: July 22:12 - CONCLUSION: 1. No acute cardiopulmonary disease. 2. Compression fractures and kyphosis at T10 and T11 consistent with known osteomyelitis and discitis at these levels. Yonatan Blake MD Cervical Spine MRI 07/15/17 0000 Signed Impressions: Service Date/Time: July 19:39 - CONCLUSION: 1. No evidence of acute osteomyelitis or acute discitis within the cervical spine. 2. Mild spinal stenosis, mild to moderate left neuroforaminal narrowing and mild right neural foraminal narrowing at C6-7 secondary to broad-based left paracentral/lateral disc bulge, facet joint hypertrophy and uncovertebral joint spurring. 3. Minimal spinal stenosis and mild bilateral foraminal narrowing at C5-6. 4. Cervical spondylosis at C5-6 and C6-7. Yonatan Blake MD Objective Remarks GENERAL: Middle-aged male, lying in bed, in distress due to back pain HEENT: Normocephalic. Atraumatic. Pupils equal, round, reactive, conjugate. Mucous membranes are moist NECK: Trachea is midline. Airway unobstructed. CHEST: Equal chest rise. Room air. CARDIOVASCULAR: Normal rate, regular rhythm. Sinus by telemetry ABDOMEN: Soft, nontender, nondistended. No guarding. MUSCULOSKELETAL: Pulses 2+. No peripheral edema. Point tenderness over midline back, particularly around the L3 level in the lumbar back. No paraspinous tenderness. NEUROLOGICAL: RASS 0. GCS 15. Follows commands in all 4 extremities. No focal deficits. Sensation grossly intact. Patient did complain of paresthesias on presenting to the ER, however I cannot objectively find any evidence of paresthesias in the lower extremities. A/P Assessment and Plan Assessment: 42-year-old male with active IV drug abuse and new onset back pain found to have low thoracic and high lumbar acute osteomyelitis/discitis of the spine. This is most certainly secondary to IV drug abuse and infective endocarditis. Will order 2D echocardiogram. We will place him on empiric vancomycin and Zosyn. I have consulted infectious disease to follow along as he will need at least 6-8 weeks of IV antibiotics. Neurosurgery has been consulted to evaluate his discitis for possible intervention. Active problems: T-spine/L-spine discitis/osteomyelitis IV drug abuse Presumed infective endocarditis as a source for his osteomyelitis Acute back pain Plan: 2D echo to assess for endocarditis Infectious disease consultation to follow along for long-term antibiotic plan Vancomycin and Zosyn Follow blood cultures Neurosurgery consultation Frequent neuro checks Admit to ICU. If remains stable in the ICU for 24 hours would likely be able to transition to floor status he continues to improve Watch for substance withdrawal IV pain control Regular diet as tolerated Admit to ICU Overall impression: Satbel hemodynamics, cultures pending. Surya Velez MD Jul 16, 2017 08:59
[2017-07-16] MEDS: DOCUSATE SODIUM 50 MG/SENNA 8.6 MG TAB PO SCH ×2 (09:47→20:02)
[2017-07-16] MEDS: FAMOTIDINE 20 MG TAB PO SCH ×2 (09:47→20:02)
[2017-07-16] MEDS ORDERED: MIDAZOLAM HCL 5 MG/5 ML VIAL ONE (13:19)
[2017-07-16] MEDS ORDERED: fentaNYL CITRATE 250 MCG/5 ML AMP ONE (13:19)
[2017-07-16] MEDS ORDERED: SODIUM CHLORIDE 0.9% INJ 10 ML ONE (13:47)
--- NOTE | 2017-07-16 14:33 | PD.RAD ---
Post Procedure Progress Note Pre Procedure Diagnosis: (1) Discitis Post Procedure Diagnosis: (1) Discitis Procedure Date: Jul 16, 2017 Supervising Radiologist: Daniel Gonzales Proceduralist/Assist: Zev Gallo RT(R), RT Lo(R) Anesthesia: Local, Conscious Sedation Plan of Activity Patient to Unit: ROPU Patient Condition: Good See PACS Report for procedural detail/treatment Daniel Gonzales MD Jul 16, 2017 14:33
--- NOTE | 2017-07-16 14:34 | RADRPT ---
EXAM DATE/TIME: 07/16/2017 13:12 [facility] COMPARISON: No previous studies available for comparison. INDICATIONS : Patient with history of discitis in need of L3-4 disc aspiration. MEDICAL HISTORY : Chronic back pain, IV drug abuse SURGICAL HISTORY : None ENCOUNTER: Initial ACUITY: 4 - 6 months PAIN SCORE: 10/10 LOCATION: Mid-lower back FLUORO TIME: 0.7 minutes IMAGE SERIES: 1 SEDATION TIME: 30 minutes MEDICATION(S): 1.) 3 mg midazolam (Versed) IV 2.) 150 mcg fentanyl (Sublimaze) IV DEVICE(S): 1.) 22 gauge Spinal needle Core specimen(s) was obtained and submitted to laboratory for pathologic evaluation. PROCEDURE : 1. Fluoroscopically guided needle biopsy. 2. Conscious sedation with continuous EKG and Oximetry monitoring. The risks, benefits and alternatives to the procedure were explained and verbal and written consent w as obtained. The site was prepped in sterile fashion. Full sterile technique was used, including cap, mask, steri le gloves and gown and a large sterile sheet. Hand hygiene and 2% chlorhexidine and/or betadine/alco hol prep was utilized per protocol for cutaneous antisepsis. The skin and subcutaneous tissues were infiltrated with local anesthetic solution. With fluoroscopic guidance a 21 gauge spinal needle was advanced into the L3-4 disc interspace. No si gnificant fluid could be aspirated. Approximately 1 cc of nonbacteriostatic saline was then injected through the needle and approximately 1.5 cc of nearly purulent fluid was aspirated. Entire sample was sent for analysis. Conscious sedation was performed with the prescribed dosages and duration as above in the presence of an independent trained radiology nurse to assist in the monitoring of the patient. EKG and oximetry remained stable throughout the procedure. CONCLUSION: 1. Uncomplicated L3-4 disc aspiration. Although no fluid could be aspirated, following irrigation wit h 1 cc of non-bacteriostatic saline approximately 1.5 cc of nearly purulent fluid was aspirated. Daniel Gonzales MD on July 16, 2017 at 14:30 Board Certified Radiologist. This report was verified electronically.
--- NOTE | 2017-07-16 15:49 | PD.ID.CON ---
History of Present Illness Service ID Consult Requested By Reason for Consult Evaluation and management of sepsis, gram-negative bacteremia and epidural abscess. Primary Care Physician No Primary Care Physician Diagnoses: History of Present Illness Mr. Park is a 42-year-old male with history of IV drug abuse in the past with new onset and worsening back pain. Patient reports he has had pain in the lower back for approximately 5 months but this has acutely gotten worse over the last week. He reports prior history of trauma to the back. He denies any fever and chills. He reports some paresthesias over the last 1 or 2 days but denies any lower extremity weakness. He denies any loss of bowel or bladder function In the emergency department MRI of the total spine demonstrated T10 as well as L3 enhancement suggestive of acute osteomyelitis and discitis. 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 Overnight he remained stable. Interventional radiology performed a CT-guided aspiration of the spine. Blood cultures are positive for gram-negative rods. Patient is currently not on any antibiotics. CT-guided aspiration fluid cultures are also pending at the present time. Infectious diseases consulted for evaluation and management of sepsis, gram- negative bacteremia and epidural abscess. Review of Systems ROS Limitations: Poor Historian Past Family Social History Allergies: Coded Allergies: No Known Allergies (Unverified Adverse Reaction, Unknown, 07/15/17) Past Medical History Chronic back pain status post injury IV drug abuse Past Surgical History IR guided biopsy of abscess site this admission. Reported Medications Reported Meds & Active Scripts Active Zantac (Ranitidine HCl) 300 Mg Tab 300 Mg PO DAILY Prednisone 20 Mg Tab 20 Mg PO DAILY Flexeril (Cyclobenzaprine HCl) 10 Mg Tab 10 Mg PO TID Ibuprofen 600 Mg Tab 600 Mg PO Q6H PRN Active Ordered Medications Current Medications Medications (Trade) Dose Ordered Sig/William Route Start Time Stop Time Status Last Admin (NS Flush) 2 ml UNSCH PRN IV FLUSH 07/15/17 16:15 Potassium Chloride 100 ml @ 50 mls/hr Q2H PRN IV 07/15/17 22:00 Potassium Chloride 100 ml @ 50 mls/hr Q2H PRN IV 07/15/17 22:00 (K-Lyte Cl Eff) 50 meq UNSCH PRN PO 07/15/17 22:00 Potassium Chloride 100 ml @ 25 mls/hr UNSCH PRN IV 07/15/17 22:00 Potassium Chloride 100 ml @ 50 mls/hr Q2H PRN IV 07/15/17 22:00 Magnesium Sulfate 4 gm/Sodium Chloride 100 ml @ 50 mls/hr UNSCH PRN IV 07/15/17 22:00 (Mag-Ox) 800 mg UNSCH PRN PO 07/15/17 22:00 Magnesium Sulfate 2 gm/Sodium Chloride 100 ml @ 50 mls/hr UNSCH PRN IV 07/15/17 22:00 (K-Phos) 2,000 mg Q4H PRN PO 07/15/17 22:00 Sodium Phosphate 30 mmol/Sodium Chloride 250 ml @ 42 mls/hr UNSCH PRN IV 07/15/17 22:00 (K-Phos) 2,000 mg UNSCH PRN PO/TUBE 07/15/17 22:00 Potassium Phosphate 30 mmol/ Sodium Chloride 260 ml @ 42 mls/hr UNSCH PRN IV 07/15/17 22:00 Sodium Chloride 1,000 ml @ 84 mls/hr [id number] IV 07/15/17 21:48 07/16/17 13:45 (Tylenol) 650 mg Q6H PRN PO 07/15/17 22:00 07/16/17 16:31 (Pepcid) 20 mg Q12HR PO 07/16/17 09:00 07/16/17 20:02 (Zofran Inj) 4 mg Q6H PRN IV PUSH 07/15/17 22:00 (Duoneb Neb) 1 ampule Q2HR NEB PRN INH 07/15/17 22:00 Miscellaneous Information 1 [id number] XX 07/15/17 22:00 07/16/17 01:22 (Chlorhexidine 2% Cloth) 3 pack Taper DAILY@04 TOP 07/16/17 04:00 07/12/18 03:59 (Chlorhexidine 2% Cloth) 3 pack UNSCH PRN TOP 07/15/17 22:00 (Marisol-Colace) 1 tab BID PO 07/16/17 09:00 07/16/17 20:02 (Milk Of Magnesia Liq) 30 ml Q12H PRN PO 07/15/17 22:00 (Lactulose Liq) 30 ml DAILY PRN PO 07/15/17 22:00 07/16/17 17:44 (Roxicodone) 5 mg Q4H PRN PO 07/16/17 05:00 07/16/17 20:56 (Dilaudid Pf Inj) 0.5 mg Q4H PRN IV PUSH 07/16/17 03:45 07/16/17 17:44 Cefepime HCl 2000 mg/Sodium Chloride 100 ml @ 200 mls/hr Q8H IV 07/16/17 17:00 07/16/17 17:08 Family History reviewed and NC to current ID problems. Social History Positive for tobacco. Positive for IV drug abuse: Last admitted use was 6 months ago, admits recent use as well. Physical Exam Vital Signs Vital Signs Date Time Temp Pulse Resp B/P (MAP) Pulse Ox O2 Delivery O2 Flow Rate FiO2 07/16/17 14:00 Room Air 100 07/16/17 14:00 94 07/16/17 12:00 79 07/16/17 12:00 99.9 79 20 126/81 (96) 100 07/16/17 09:00 18 07/16/17 08:00 99.5 75 18 113/73 (86) 100 07/16/17 08:00 75 07/16/17 08:00 Room Air 100 07/16/17 04:00 98.8 85 19 114/75 (88) 100 07/16/17 01:00 Room Air 100 07/16/17 01:00 100 07/16/17 01:00 99.3 100 21 119/66 (83) 100 07/16/17 00:00 75 16 106/55 (72) 99 Room Air 07/15/17 22:00 86 16 116/73 (87) 100 Room Air 07/15/17 20:50 89 16 120/64 (82) 100 Room Air Physical Exam GENERAL: This is a well-nourished, well-developed patient, in no apparent distress. SKIN: No rashes, ecchymoses or lesions. Cool and dry. HEAD: Atraumatic. Normocephalic. No temporal or scalp tenderness. EYES: Pupils equal round and reactive. Extraocular motions intact. No scleral icterus. No injection or drainage. ENT: Nose without bleeding, purulent drainage or septal hematoma. Throat without erythema, tonsillar hypertrophy or exudate. Uvula midline. Airway patent. NECK: Trachea midline. Supple, nontender, no meningeal signs. CARDIOVASCULAR: Regular rate and rhythm without murmurs, gallops, or rubs. RESPIRATORY: Clear to auscultation. Breath sounds equal bilaterally. No wheezes , rales, or rhonchi. GASTROINTESTINAL: Abdomen soft, non-tender, nondistended. MUSCULOSKELETAL: Extremities without clubbing, cyanosis, or edema. No joint tenderness, effusion, or edema noted. No calf tenderness. Negative Homans sign bilaterally. NEUROLOGICAL: Awake and alert. Non focal, moves all 4 extremities. Psych cooperative IV line sites with no e.o infection Laboratory Laboratory Tests Test 07/15/17 16:35 07/16/17 00:45 07/16/17 04:00 White Blood Count 21.6 17.8 Red Blood Count 3.88 3.53 Hemoglobin 8.9 8.0 Hematocrit 27.0 24.6 Mean Corpuscular Volume 69.6 69.7 Mean Corpuscular Hemoglobin 22.9 22.6 Mean Corpuscular Hemoglobin Concent 32.9 32.5 Red Cell Distribution Width 17.0 16.6 Platelet Count 841 784 Mean Platelet Volume 7.4 7.3 Neutrophils (%) (Auto) 83.7 Lymphocytes (%) (Auto) 10.9 Monocytes (%) (Auto) 4.9 Eosinophils (%) (Auto) 0.1 Basophils (%) (Auto) 0.4 Neutrophils # (Auto) 18.1 Lymphocytes # (Auto) 2.4 Monocytes # (Auto) 1.1 Eosinophils # (Auto) 0.0 Basophils # (Auto) 0.1 CBC Comment DIFF FINAL Differential Comment Erythrocyte Sedimentation Rate GREATER THAN 140 Blood Urea Nitrogen 9 13 Creatinine 0.69 0.67 Random Glucose 96 96 Total Protein 8.7 Albumin 2.7 Calcium Level 8.8 8.4 Alkaline Phosphatase 109 Aspartate Amino Transf (AST/SGOT) 24 Alanine Aminotransferase (ALT/SGPT) 17 Total Bilirubin 0.4 Sodium Level 137 137 Potassium Level 3.6 3.6 Chloride Level 106 104 Carbon Dioxide Level 24.5 26.4 Anion Gap 7 7 Estimat Glomerular Filtration Rate 126 131 Nasal Screen MRSA (PCR) MRSA NOT DETECTED Date/Time Source Procedure Growth Status 07/15/17 20:55 Blood Peripheral Aerobic Blood Culture - Preliminary NO GROWTH IN 1 DAY Resulted 07/15/17 20:55 Anaerobic Blood Culture - Preliminary Gram Negative Frank Resulted 07/16/17 13:53 Wound Back Fungal Smear Pending Received 07/16/17 13:53 Wound Back Fungal Culture Pending Received Result Diagram: 07/16/17 0400 07/16/17 0400 Imaging Last Impressions Needle Biopsy/Aspiration X-Ray 07/16/17 1021 Signed Impressions: Service Date/Time: Sunday, July 16, 2017 13:12 - CONCLUSION: 1. Uncomplicated L3-4 disc aspiration. Although no fluid could be aspirated, following irrigation with 1 cc of non-bacteriostatic saline approximately 1.5 cc of nearly purulent fluid was aspirated. Daniel Gonzales MD Thoracic Spine MRI 07/15/17 0000 Signed Impressions: Service Date/Time: July 19:39 - CONCLUSION: Diffuse enhancement involving the lower two thirds of the T10 vertebral body and the upper two thirds of the T11 vertebral body suggestive of acute osteomyelitis likely surrounding an acute discitis at T10-11. There is enhancing epidural tissue along the left anterior lateral aspect of the thecal sac at this level which results in slight effacement of the thoracic cord and moderate spinal stenosis at this level. There is kyphosis of the thoracic spine at the T10-11 level. There is also acute compression deformities involving T10 and T11. Yonatan Blake MD Lumbar Spine MRI 07/15/17 0000 Signed Impressions: Service Date/Time: July 19:39 - CONCLUSION: 1. Enhancement of the lower two thirds of L3 and the upper two thirds of L4 consistent with probable acute osteomyelitis surrounding discitis at L3-4. There is also enhancing epidural tissue posterior to the L3-4 level which results in slight effacement of the anterior thecal sac and mild spinal stenosis at this level. Paravertebral enhancing soft tissue is noted surrounding L3 and L4. 2. Severe bilateral foraminal narrowing is noted at L3-4. 3. Moderate to severe bilateral foraminal narrowing is noted at L4-5. Yonatan Blake MD Chest X-Ray 07/15/17 0000 Signed Impressions: Service Date/Time: July 22:12 - CONCLUSION: 1. No acute cardiopulmonary disease. 2. Compression fractures and kyphosis at T10 and T11 consistent with known osteomyelitis and discitis at these levels. Yonatan Blake MD Cervical Spine MRI 07/15/17 0000 Signed Impressions: Service Date/Time: July 19:39 - CONCLUSION: 1. No evidence of acute osteomyelitis or acute discitis within the cervical spine. 2. Mild spinal stenosis, mild to moderate left neuroforaminal narrowing and mild right neural foraminal narrowing at C6-7 secondary to broad-based left paracentral/lateral disc bulge, facet joint hypertrophy and uncovertebral joint spurring. 3. Minimal spinal stenosis and mild bilateral foraminal narrowing at C5-6. 4. Cervical spondylosis at C5-6 and C6-7. Yonatan Blake MD Assessment and Plan Assessment and Plan Sepsis present on admission Gram negative bacteremia: source spine and possible endocarditis. Thoracic and Lumbar osteomyelitis and myositis. IVDU Recs: Repeat blood cultures tomorrow after start of effective therapy. Start Cefepime 2 gm IV q8hrs pending cultures. IVDU concern for PSAE. Hepatitis profile. HIV antibody screen 2D ECHO r.o endocarditis. Check CRP. Will need CT Chest, Abd/pelvis in next day or two. Patient has received contrast will wait another day or two unless clinical change. Follow cultures Follow clinically. Tressa Rdz MD Jul 16, 2017 15:49
[2017-07-16] MEDS: CEFEPIME INJ 2,000 MG in SODIUM CHLORIDE 0.9% INJ 100 ML IV SCH (17:08)
[2017-07-16] MEDS: LACTULOSE SYRUP 20 GM/30 ML CUP PO PRN (17:44)
--- NOTE | 2017-07-16 23:53 | MB ---
cc: Slim Duval MD DATE OF CONSULT: 07/16/2017 REASON FOR CONSULTATION: Thoracic and lumbar diskitis with osteomyelitis. HISTORY OF PRESENT ILLNESS: A 42-year-old gentleman with approximately 6 week history of low back pain more in the lumbar than thoracic. Denies any radiculopathy. States the pain has worsened progressively prompting an emergency room visit last evening. He also presented to the emergency room shortly after the pain started to exacerbate in late 05/2017. At that time MRI scan of the lumbar and thoracic spine was obtained and did not reveal any obvious infection with chronic changes long with an old T10 body fracture which he suffered after a trauma a couple years ago. Relates prior to a couple months ago, his back pain was tolerable with intermittent exacerbation. He does relate history of IV drug abuse with heroin an the last time he used it was about a week ago. Workup in the emergency room included an MRI scan of the complete spine including cervical, thoracic and lumbar spine. 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 There is also small left sided enhancement in the epidural space although no cord compression is noted with mild to moderate stenosis. He also has at the L3-4 level diskitis and osteomyelitis with a small ventral epidural enhancement area and mild stenosis. He related that last evening for less than a minute, he had some complaints of some paresthesias in legs but this has resolved. At this point he denies any weakness or numbness in the lower extremities and there is no incontinence. He has been voiding. He relates that lying flat on his back is very painful so he prefers to lie on his sides and being out of bed also with movement is painful. Blood cultures have been obtained and are growing out gram negative rods in the 2 cultures. PAST MEDICAL HISTORY: IV drug abuse with heroin, chronic back pain after his injury 2 years ago with a T10 mild compression fracture treated nonsurgically. MEDICATIONS: Ibuprofen 600 mg q. 6 hours p.r.n., Zantac 300 mg daily, prednisone 20 mg daily, Flexeril 10 mg t.i.d. ALLERGIES: NO KNOWN DRUG ALLERGIES. SOCIAL HISTORY: He is single. He denies alcohol use. Smokes a pack of cigarettes a day and admits to IV drug abuse with heroin. The last time he used it about a week ago. REVIEW OF SYSTEMS: Complains of low back pain, lumbar more than thoracic. Denies any numbness or paresthesias or weakness in lower extremities. Denies any incontinence. Denies any chest pain or shortness of breath. Denies any neck pain. Otherwise review of systems is negative for all other systems. FAMILY HISTORY: Unremarkable. LABORATORY DATA: White blood cell count 21, hemoglobin 8.9, platelet count 841, sed rate greater than 140. Sodium 137, potassium 3.6, BUN 9, creatinine 0.69, glucose 96. Blood cultures both are positive for gram negative rods. PHYSICAL EXAMINATION: VITAL SIGNS: Temperature 99.5, pulse is 75, respiratory rate 18, blood pressure 113/73, oxygen saturation is 99% on room air. HEAD: Normocephalic, atraumatic. NECK: No guarding or rigidity with good range of motion. Trachea is midline, no lymphadenopathy. CHEST: Clear to auscultation bilaterally. HEART: Regular rate and rhythm. ABDOMEN: Soft, non-tender, positive bowel sounds. No hepatosplenomegaly. EXTREMITIES: No cyanosis, edema or deformity. SPINE: He has tenderness along the lumbar aspect to palpation. GENERAL CONDITION: This is a middle aged gentleman in mild distress related to back pain, lying on his side in the bed in the position. NEUROLOGIC: He is awake, alert. He is oriented x 3. Cranial nerves are grossly intact. Motor strength in the upper and lower extremities is 5/5, negative Babinski, negative clonus. Light touch sensation is intact in the upper and lower extremities. Speech is fluent. IMPRESSION: 1. T10-11 and L3-4 diskitis with osteomyelitis and a small associated epidural abscess without any neurologic deficits or spinal cord compression noted. Blood cultures are positive for gram negative rods and he has a history of intravenous drug abuse. Remote history of T10 body fracture 2 years ago, chronic low back pain and intermittent exacerbations. 2. Bacteremia/sepsis, rule out endocarditis. PLAN: I have requested an L3-L4 disk space percutaneous needle aspiration by the radiology special procedures to identify the organism, although it appears the blood cultures will be able to do that also. He has been started on broad spectrum antibiotic and will need 6-8 weeks of antibiotics for the diskitis osteomyelitis in thoracic and lumbar spine. We will also fit him with a TLSO brace to provide mechanical support from the diskitis osteomyelitis with axial loading and increase his activity status with physical therapy involvement along with pain control. Recommend mechanical and chemical DVT prophylaxis. MD KAYLYNN Adkins/ , 07:22 PM , 11:51 PM STU
[2017-07-17] VITALS (8 sets, daily range): BP systolic 113–132; BP diastolic 65–74; PULSE 79–92; RESP 12–18; TEMP 98.8–99.6; O2SAT 100
[2017-07-17] MEDS: CEFEPIME INJ 2,000 MG in SODIUM CHLORIDE 0.9% INJ 100 ML IV SCH ×4 (01:34→23:49)
[2017-07-17] MEDS: HYDROmorphone HCL PF 2 MG/ML VIAL IV PUSH PRN ×7 (01:50→23:49)
[2017-07-17] MEDS: CHLORHEXIDINE GLUCONATE 2 % 1 PACK (2 CLOTHS) TOP SCH (04:00)
[2017-07-17 06:00] LABS: HEMATOCRIT 23.6 % (39.0-51.0); HEMOGLOBIN 7.5 GM/DL (13.0-17.0); MEAN CELL VOLUME 71.3 FL (80.0-100.0); MEAN CORPUSCULAR HEMOGLOBIN 22.6 PG (27.0-34.0); MEAN CORPUSCULAR HGB CONC 31.6 % (32.0-36.0); MEAN PLATELET VOLUME 7.5 FL (7.0-11.0); PLATELET COUNT 514 TH/MM3 (150-450); RED BLOOD COUNT 3.31 MIL/MM3 (4.50-5.90); RED CELL DISTRIBUTION WIDTH 17.4 % (11.6-17.2); WHITE BLOOD COUNT 12.6 TH/MM3 (4.0-11.0)
[2017-07-17] MEDS: DOCUSATE SODIUM 50 MG/SENNA 8.6 MG TAB PO SCH ×2 (08:57→20:11)
[2017-07-17] MEDS: FAMOTIDINE 20 MG TAB PO SCH ×2 (08:57→20:11)
[2017-07-17] MEDS: MAGNESIUM HYDROXIDE SUSP 30 ML CUP PO PRN ×2 (08:57→18:25)
--- NOTE | 2017-07-17 09:45 | HHI.PR ---
Subjective Remarks f/u; osteomyelitis in no acute distress. complaining of back pain. T max 101.4. no other complaints. Objective Vitals Vital Signs Date Time Temp Pulse Resp B/P (MAP) Pulse Ox O2 Delivery O2 Flow Rate FiO2 07/17/17 08:00 98.9 79 12 115/74 (88) 100 07/17/17 08:00 79 07/17/17 04:00 99.1 80 16 113/69 (84) 100 07/17/17 00:00 99.0 80 18 119/71 (87) 100 07/16/17 20:00 99 Room Air 07/16/17 20:00 99.1 96 22 112/67 (82) 99 07/16/17 20:00 98 07/16/17 18:20 19 07/16/17 17:42 18 07/16/17 17:42 18 07/16/17 16:00 101.4 88 16 117/67 (84) 100 07/16/17 16:00 88 07/16/17 14:00 Room Air 100 07/16/17 14:00 94 07/16/17 12:00 79 07/16/17 12:00 99.9 79 20 126/81 (96) 100 I/O 07/16/17 07/16/17 07/16/17 07/17/17 07/17/17 07/17/17 07:00 15:00 23:00 07:00 15:00 23:00 Intake Total 962 ml 504 ml 1294 ml 720 ml Output Total 400 ml 850 ml 1150 ml Balance 562 ml 504 ml 444 ml -430 ml Intake Oral 500 ml 960 ml 720 ml IV Total 462 ml 504 ml 334 ml Output Urine Total 400 ml 850 ml 1150 ml # Bowel Movements 0 0 Result Diagram: 07/17/17 0530 07/16/17 0400 Imaging Last Impressions Needle Biopsy/Aspiration X-Ray 07/16/17 1021 Signed Impressions: Service Date/Time: Sunday, July 16, 2017 13:12 - CONCLUSION: 1. Uncomplicated L3-4 disc aspiration. Although no fluid could be aspirated, following irrigation with 1 cc of non-bacteriostatic saline approximately 1.5 cc of nearly purulent fluid was aspirated. Daniel Gonzales MD Thoracic Spine MRI 07/15/17 0000 Signed Impressions: Service Date/Time: July 19:39 - CONCLUSION: Diffuse enhancement involving the lower two thirds of the T10 vertebral body and the upper two thirds of the T11 vertebral body suggestive of acute osteomyelitis likely surrounding an acute discitis at T10-11. There is enhancing epidural tissue along the left anterior lateral aspect of the thecal sac at this level which results in slight effacement of the thoracic cord and moderate spinal stenosis at this level. There is kyphosis of the thoracic spine at the T10-11 level. There is also acute compression deformities involving T10 and T11. Yonatan Blake MD Lumbar Spine MRI 07/15/17 0000 Signed Impressions: Service Date/Time: July 19:39 - CONCLUSION: 1. Enhancement of the lower two thirds of L3 and the upper two thirds of L4 consistent with probable acute osteomyelitis surrounding discitis at L3-4. There is also enhancing epidural tissue posterior to the L3-4 level which results in slight effacement of the anterior thecal sac and mild spinal stenosis at this level. Paravertebral enhancing soft tissue is noted surrounding L3 and L4. 2. Severe bilateral foraminal narrowing is noted at L3-4. 3. Moderate to severe bilateral foraminal narrowing is noted at L4-5. Yonatan Blake MD Chest X-Ray 07/15/17 0000 Signed Impressions: Service Date/Time: July 22:12 - CONCLUSION: 1. No acute cardiopulmonary disease. 2. Compression fractures and kyphosis at T10 and T11 consistent with known osteomyelitis and discitis at these levels. Yonatan Blake MD Cervical Spine MRI 07/15/17 0000 Signed Impressions: Service Date/Time: July 19:39 - CONCLUSION: 1. No evidence of acute osteomyelitis or acute discitis within the cervical spine. 2. Mild spinal stenosis, mild to moderate left neuroforaminal narrowing and mild right neural foraminal narrowing at C6-7 secondary to broad-based left paracentral/lateral disc bulge, facet joint hypertrophy and uncovertebral joint spurring. 3. Minimal spinal stenosis and mild bilateral foraminal narrowing at C5-6. 4. Cervical spondylosis at C5-6 and C6-7. Yonatan Blake MD Objective Remarks GENERAL: This is a well-nourished, well-developed patient, in no apparent distress. CARDIOVASCULAR: Regular rate and regular rhythm without murmurs, gallops, or rubs. RESPIRATORY: Clear to auscultation. Breath sounds equal bilaterally. No wheezes , rales, or rhonchi. GASTROINTESTINAL: Abdomen soft, non-tender, nondistended. Normal, active bowel sounds MUSCULOSKELETAL: Extremities without clubbing, cyanosis, or edema. NEURO: Alert & Oriented x4 to person, place, time, situation. Moves all ext x4 Procedures needle aspiration of the lumbar spine Medications and IVs Inpatient Medications Acetaminophen (Tylenol) 650 mg Q6H PRN PO PAIN 1-3 AND/OR FEVER >101F Last administered on 07/16/17at 16:31; Start 07/15/17 at 22:00 Albuterol/ Ipratropium (Duoneb Neb) 1 ampule Q2HR NEB PRN INH WHEEZING; Start 07/15/17 at 22:00 Cefepime HCl 2000 mg/Sodium Chloride 100 ml @ 200 mls/hr Q8H IV Last administered on 07/17/17at 08:57; Start 07/16/17 at 17:00 Ceftriaxone Sodium 2000 mg/ Sodium Chloride 100 ml @ 200 mls/hr ONCE ONCE IV Last administered on 07/15/17at 20:47; Start 07/15/17 at 18:45; Stop 07/15/17 at 19: 14; Status DC Chlorhexidine Gluconate (Chlorhexidine 2% Cloth) 3 pack UNSCH PRN TOP HYGIENIC CARE; Start 07/15/17 at 22:00 Famotidine (Pepcid) 20 mg Q12HR PO Last administered on 07/17/17at 08:57; Start 07/16/17 at 09:00 Hydromorphone HCl (Dilaudid Pf Inj) 0.5 mg Q4H PRN IV PUSH pain 8-10 or not taking po Last administered on 07/17/17at 05:51; Start 07/16/17 at 03:45 Ketorolac Tromethamine (Toradol Inj) 30 mg ONCE ONCE IVP Last administered on 07/15/17at 16:53; Start 07/15/17 at 16:15; Stop 07/15/17 at 16:16; Status DC Lactulose (Lactulose Liq) 30 ml DAILY PRN PO SEVERE CONSITIPATION Last administered on 07/16/17at 17:44; Start 07/15/17 at 22:00 Magnesium Hydroxide (Milk Of Magnesia Liq) 30 ml Q12H PRN PO Mild constipation Last administered on 07/17/17at 08:57; Start 07/15/17 at 22:00 Magnesium Oxide (Mag-Ox) 800 mg UNSCH PRN PO For Magnesium 1.2 - 1.6 mg/dL; Start 07/15/17 at 22:00 Magnesium Sulfate 2 gm/Sodium Chloride 100 ml @ 50 mls/hr UNSCH PRN IV For Magnesium 1.2 - 1.6 mg/dL; Start 07/15/17 at 22:00 Magnesium Sulfate 4 gm/Sodium Chloride 100 ml @ 50 mls/hr UNSCH PRN IV For Magnesium 0.9 - 1.1 mg/dL; Start 07/15/17 at 22:00 Miscellaneous Information 1 Q361D XX Last administered on 07/16/17at 01:22; Start 07/15/17 at 22:00 Morphine Sulfate (Morphine Inj) 6 mg ONCE ONCE IV PUSH Last administered on 07/15/17at 18:45; Start 07/15/17 at 18:45; Stop 07/15/17 at 18:46; Status DC Ondansetron HCl (Zofran Inj) 4 mg Q6H PRN IV PUSH NAUSEA OR VOMITING; Start 07/15/17 at 22:00 Oxycodone HCl (Roxicodone) 5 mg Q4H PRN PO pain 4-7 Last administered on at 08:57; Start 07/16/17 at 05:00 Potassium Phosphate (K-Phos) 2,000 mg UNSCH PRN PO/TUBE SEE LABEL COMMENTS; Start 07/15/17 at 22:00 Potassium Phosphate 30 mmol/ Sodium Chloride 260 ml @ 42 mls/hr UNSCH PRN IV SEE LABEL COMMENTS; Start 07/15/17 at 22:00 Potassium Bicarb/ Potassium Chloride (K-Lyte Cl Eff) 50 meq UNSCH PRN PO For Potassium 3.3 - 3.5 mEq/L; Start 07/15/17 at 22:00 Potassium Chloride 100 ml @ 50 mls/hr Q2H PRN IV For Potassium 3.3 - 3.5 mEq/L ; Start 07/15/17 at 22:00 Senna/Docusate Sodium (Marisol-Colace) 1 tab BID PO Last administered on 07/17/17at 08:57; Start 07/16/17 at 09:00 Sodium Chloride 1,000 ml @ 84 mls/hr [id number] IV Last administered on 07/16/17at 13:45; Start 07/15/17 at 21:48 Sodium Chloride (NS Flush) 2 ml UNSCH PRN IV FLUSH FLUSH AFTER USING IV ACCESS ; Start 07/15/17 at 16:15 Sodium Phosphate 30 mmol/Sodium Chloride 250 ml @ 42 mls/hr UNSCH PRN IV For Phosphorus < 2.5 mg/dL; Start 07/15/17 at 22:00 Vancomycin HCl 1750 mg/Sodium Chloride 517.5 ml @ 258.75 mls/ hr ONCE ONCE IV Last administered on 07/15/17at 21:22; Start 07/15/17 at 18:45; Stop 07/15/17 at 20:44; Status DC A/P Problem List: (1) Discitis ICD Code: M46.40 - Discitis, unspecified, site unspecified Status: Acute (2) IV drug abuse ICD Code: F19.10 - Other psychoactive substance abuse, uncomplicated Status: Acute Assessment and Plan T-spine/L-spine discitis/osteomyelitis/IV drug abuse bacteremia Presumed infective endocarditis as a source for his osteomyelitis Acute back pain s/p needle aspiration of the lumbar spine. continue with IV antibiotics per ID. follow the blood cultures. continue with pain control. neurosurgery following. anemia- likely due to chronic disease check iron profile and stool for blood- monitor H/H and transfuse as needed. DVT prophylaxis with SCD's. Problem Qualifiers (1) Discitis: Qualified Codes: M46.40 - Discitis, unspecified, site unspecified Evelio Moon MD Jul 17, 2017 09:45
--- NOTE | 2017-07-17 11:01 | HHI.NSPN ---
(Kayce Ge) Note Status Status: Progress Note (Kayce Ge) Interval History Interval History A 42-year-old gentleman with approximately 6 week history of low back pain more in the lumbar than thoracic. Denies any radiculopathy. States the pain has worsened progressively prompting an emergency room visit last evening. He also presented to the emergency room shortly after the pain started to exacerbate in late 05/2017. At that time MRI scan of the lumbar and thoracic spine was obtained and did not reveal any obvious infection with chronic changes long with an old T10 ____body fracture which he suffered after a trauma a couple years ago. Relates prior to a couple months ago, his back pain was tolerable with intermittent exacerbation. He does relate history of IV drug abuse with heroin an the last time he used it was about a week ago. Workup in the emergency room included an MRI scan of the complete spine including cervical, thoracic and lumbar spine. 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 There is also small left sided enhancement in the epidural space although no cord compression is noted with mild to moderate stenosis. He also has at the L3-4 level diskitis and osteomyelitis with a small ventral epidural enhancement area and mild stenosis. He related that last evening for less than a minute, he had some complaints of some paresthesias in legs but this has resolved. At this point he denies any weakness or numbness in the lower extremities and there is no incontinence. He has been voiding. He relates that lying flat on his back is very painful so he prefers to lie on his sides and being out of bed also with movement is painful. Blood cultures have been obtained and are growing out gram negative rods in the 2 cultures. 07/17: s/p CT guided needle aspiration of lumbar disc - cultures pending. c/o thoraco lumbar pain. denies radiculopathy, focal weakness. (Kayce Ge) Labs, Micro, & Vital Signs Results Date Time Temp Pulse Resp B/P (MAP) Pulse Ox O2 Delivery O2 Flow Rate FiO2 07/17/17 08:00 98.9 79 12 115/74 (88) 100 07/17/17 08:00 79 07/17/17 04:00 99.1 80 16 113/69 (84) 100 07/17/17 00:00 99.0 80 18 119/71 (87) 100 07/16/17 20:00 99 Room Air 07/16/17 20:00 99.1 96 22 112/67 (82) 99 07/16/17 20:00 98 07/16/17 18:20 19 07/16/17 17:42 18 07/16/17 17:42 18 07/16/17 16:00 101.4 88 16 117/67 (84) 100 07/16/17 16:00 88 07/16/17 14:00 Room Air 100 07/16/17 14:00 94 07/16/17 12:00 79 07/16/17 12:00 99.9 79 20 126/81 (96) 100 Constitutional Vital Signs Date Time Temp Pulse Resp B/P (MAP) Pulse Ox O2 Delivery O2 Flow Rate FiO2 07/17/17 08:00 98.9 79 12 115/74 (88) 100 07/17/17 08:00 79 07/17/17 04:00 99.1 80 16 113/69 (84) 100 07/17/17 00:00 99.0 80 18 119/71 (87) 100 07/16/17 20:00 99 Room Air 07/16/17 20:00 99.1 96 22 112/67 (82) 99 07/16/17 20:00 98 07/16/17 18:20 19 07/16/17 17:42 18 07/16/17 17:42 18 07/16/17 16:00 101.4 88 16 117/67 (84) 100 07/16/17 16:00 88 07/16/17 14:00 Room Air 100 07/16/17 14:00 94 07/16/17 12:00 79 07/16/17 12:00 99.9 79 20 126/81 (96) 100 (Kayce Ge) Review of Systems Cardiovascular: DENIES: Chest pain Musculoskeletal: COMPLAINS OF: Back pain, DENIES: Neck pain Neurologic: DENIES: Headache, Localized weakness, Paresthesias (Kayce Ge) Physical Exam HEAD: Normocephalic, atraumatic. NECK: soft, supple CHEST: Clear to auscultation bilaterally. HEART: Regular rate and rhythm. EXTREMITIES: No cyanosis, edema or deformity. SPINE: He has tenderness along the lumbar aspect to palpation. GENERAL CONDITION: This is a middle aged gentleman in no apparent distress laying comfortably in bed NEUROLOGIC: He is awake, alert. He is oriented x 3. Cranial nerves are grossly intact. Motor strength in the upper and lower extremities is 5/5, negative Babinski, negative clonus. Light touch sensation is intact in the upper and lower extremities. Speech is fluent. (Kayce Ge) HEAD: Normocephalic, atraumatic. NECK: soft, supple CHEST: Clear to auscultation bilaterally. HEART: Regular rate and rhythm. EXTREMITIES: No cyanosis, edema or deformity. SPINE: He has tenderness along the lumbar aspect to palpation. GENERAL CONDITION: This is a middle aged gentleman in no apparent distress laying comfortably in bed NEUROLOGIC: He is awake, alert. He is oriented x 3. Cranial nerves are grossly intact. Motor strength in the upper and lower extremities is 5/5, negative Babinski, negative clonus. Light touch sensation is intact in the upper and lower extremities. Speech is fluent. (Can Renteria MD) Medications Current Medications Current Medications Medications (Trade) Dose Ordered Sig/William Route PRN Reason Start Time Stop Time Status Last Admin Dose Admin Sodium Chloride (NS Flush) 2 ml UNSCH PRN IV FLUSH FLUSH AFTER USING IV ACCESS 07/15/17 16:15 Potassium Chloride 100 ml @ 50 mls/hr Q2H PRN IV For Potassium 2.8 - 3.2 mEq/L 07/15/17 22:00 Potassium Chloride 100 ml @ 50 mls/hr Q2H PRN IV For Potassium 2.8 - 3.2 mEq/L 07/15/17 22:00 Potassium Bicarb/ Potassium Chloride (K-Lyte Cl Eff) 50 meq UNSCH PRN PO For Potassium 3.3 - 3.5 mEq/L 07/15/17 22:00 Potassium Chloride 100 ml @ 25 mls/hr UNSCH PRN IV For Potassium 3.3 - 3.5 mEq/L 07/15/17 22:00 Potassium Chloride 100 ml @ 50 mls/hr Q2H PRN IV For Potassium 3.3 - 3.5 mEq/L 07/15/17 22:00 Magnesium Sulfate 4 gm/Sodium Chloride 100 ml @ 50 mls/hr UNSCH PRN IV For Magnesium 0.9 - 1.1 mg/dL 07/15/17 22:00 Magnesium Oxide (Mag-Ox) 800 mg UNSCH PRN PO For Magnesium 1.2 - 1.6 mg/dL 07/15/17 22:00 Magnesium Sulfate 2 gm/Sodium Chloride 100 ml @ 50 mls/hr UNSCH PRN IV For Magnesium 1.2 - 1.6 mg/dL 07/15/17 22:00 Potassium Phosphate (K-Phos) 2,000 mg Q4H PRN PO For Phosphorus < 2.5 mg/dL 07/15/17 22:00 Sodium Phosphate 30 mmol/Sodium Chloride 250 ml @ 42 mls/hr UNSCH PRN IV For Phosphorus < 2.5 mg/dL 07/15/17 22:00 Potassium Phosphate (K-Phos) 2,000 mg UNSCH PRN PO/TUBE SEE LABEL COMMENTS 07/15/17 22:00 Potassium Phosphate 30 mmol/ Sodium Chloride 260 ml @ 42 mls/hr UNSCH PRN IV SEE LABEL COMMENTS 07/15/17 22:00 Sodium Chloride 1,000 ml @ 84 mls/hr [id number] IV 07/15/17 21:48 07/16/17 13:45 Acetaminophen (Tylenol) 650 mg Q6H PRN PO PAIN 1-3 AND/OR FEVER >101F 07/15/17 22:00 07/16/17 16:31 Famotidine (Pepcid) 20 mg Q12HR PO 07/16/17 09:00 07/17/17 08:57 Ondansetron HCl (Zofran Inj) 4 mg Q6H PRN IV PUSH NAUSEA OR VOMITING 07/15/17 22:00 Albuterol/ Ipratropium (Duoneb Neb) 1 ampule Q2HR NEB PRN INH WHEEZING 07/15/17 22:00 Miscellaneous Information 1 Q361D XX 07/15/17 22:00 07/16/17 01:22 Chlorhexidine Gluconate (Chlorhexidine 2% Cloth) 3 pack Taper DAILY@04 TOP 07/16/17 04:00 07/12/18 03:59 Chlorhexidine Gluconate (Chlorhexidine 2% Cloth) 3 pack UNSCH PRN TOP HYGIENIC CARE 07/15/17 22:00 Senna/Docusate Sodium (Marisol-Colace) 1 tab BID PO 07/16/17 09:00 07/17/17 08:57 Magnesium Hydroxide (Milk Of Magnesia Liq) 30 ml Q12H PRN PO Mild constipation 07/15/17 22:00 07/17/17 08:57 Lactulose (Lactulose Liq) 30 ml DAILY PRN PO SEVERE CONSITIPATION 07/15/17 22:00 07/16/17 17:44 Oxycodone HCl (Roxicodone) 5 mg Q4H PRN PO pain 4-7 07/16/17 05:00 07/17/17 08:57 Hydromorphone HCl (Dilaudid Pf Inj) 0.5 mg Q4H PRN IV PUSH pain 8-10 or not taking po 07/16/17 03:45 07/17/17 05:51 Cefepime HCl 2000 mg/Sodium Chloride 100 ml @ 200 mls/hr Q8H IV 07/16/17 17:00 07/17/17 08:57 (Kayce Ge) Current Medications Current Medications Morphine Sulfate (Morphine Inj) 4 mg ONCE ONCE IV PUSH Last administered on 16:54; Start 07/15/17 at 16:15; Stop 07/15/17 at 16:16; Status DC Ondansetron HCl (Zofran Inj) 4 mg ONCE ONCE IVP Last administered on 07/15/17at 16:53; Start 07/15/17 at 16:15; Stop 07/15/17 at 16:16; Status DC Sodium Chloride (NS Flush) 2 ml UNSCH PRN IV FLUSH FLUSH AFTER USING IV ACCESS Last administered on 07/18/17at 10:41; Start 07/15/17 at 16:15 Ketorolac Tromethamine (Toradol Inj) 30 mg ONCE ONCE IVP Last administered on 07/15/17 16:53; Start 07/15/17 at 16:15; Stop 07/15/17 at 16:16; Status DC Morphine Sulfate (Morphine Inj) 6 mg ONCE ONCE IV PUSH Last administered on 07/15/17at 18:45; Start 07/15/17 at 18:45; Stop 07/15/17 at 18:46; Status DC Vancomycin HCl 1750 mg/Sodium Chloride 517.5 ml @ 258.75 mls/ hr ONCE ONCE IV Last administered on 07/15/17at 21:22; Start 07/15/17 at 18:45; Stop 07/15/17 at 20:44; Status DC Ceftriaxone Sodium 2000 mg/ Sodium Chloride 100 ml @ 200 mls/hr ONCE ONCE IV Last administered on 07/15/17at 20:47; Start 07/15/17 at 18:45; Stop 07/15/17 at 19: 14; Status DC Hydromorphone HCl (Dilaudid Pf Inj) 2 mg ONCE ONCE IV PUSH Last administered on 07/15/17at 19:34; Start 07/15/17 at 19:30; Stop 07/15/17 at 19:31; Status DC Gadodiamide (Omniscan Pf Inj) 11 ml STK-MED ONCE IVCONTRAST Last administered on 07/15/17at 13:01; Start 07/15/17 at 13:01; Stop 07/15/17 at 20:27; Status DC Potassium Chloride 100 ml @ 50 mls/hr Q2H PRN IV For Potassium 2.8 - 3.2 mEq/L ; Start 07/15/17 at 22:00 Potassium Chloride 100 ml @ 50 mls/hr Q2H PRN IV For Potassium 2.8 - 3.2 mEq/L ; Start 07/15/17 at 22:00 Potassium Bicarb/ Potassium Chloride (K-Lyte Cl Eff) 50 meq UNSCH PRN PO For Potassium 3.3 - 3.5 mEq/L; Start 07/15/17 at 22:00 Potassium Chloride 100 ml @ 25 mls/hr UNSCH PRN IV For Potassium 3.3 - 3.5 mEq /L; Start 07/15/17 at 22:00 Potassium Chloride 100 ml @ 50 mls/hr Q2H PRN IV For Potassium 3.3 - 3.5 mEq/L ; Start 07/15/17 at 22:00 Magnesium Sulfate 4 gm/Sodium Chloride 100 ml @ 50 mls/hr UNSCH PRN IV For Magnesium 0.9 - 1.1 mg/dL; Start 07/15/17 at 22:00 Magnesium Oxide (Mag-Ox) 800 mg UNSCH PRN PO For Magnesium 1.2 - 1.6 mg/dL; Start 07/15/17 at 22:00 Magnesium Sulfate 2 gm/Sodium Chloride 100 ml @ 50 mls/hr UNSCH PRN IV For Magnesium 1.2 - 1.6 mg/dL; Start 07/15/17 at 22:00 Potassium Phosphate (K-Phos) 2,000 mg Q4H PRN PO For Phosphorus < 2.5 mg/dL; Start 07/15/17 at 22:00 Sodium Phosphate 30 mmol/Sodium Chloride 250 ml @ 42 mls/hr UNSCH PRN IV For Phosphorus < 2.5 mg/dL; Start 07/15/17 at 22:00 Potassium Phosphate (K-Phos) 2,000 mg UNSCH PRN PO/TUBE SEE LABEL COMMENTS; Start 07/15/17 at 22:00 Potassium Phosphate 30 mmol/ Sodium Chloride 260 ml @ 42 mls/hr UNSCH PRN IV SEE LABEL COMMENTS; Start 07/15/17 at 22:00 Sodium Chloride 1,000 ml @ 84 mls/hr [id number] IV Last administered on 07/19/17at 11:15; Start 07/15/17 at 21:48 Acetaminophen (Tylenol) 650 mg Q6H PRN PO PAIN 1-3 AND/OR FEVER >101F Last administered on 07/16/17at 16:31; Start 07/15/17 at 22:00 Famotidine (Pepcid) 20 mg Q12HR PO Last administered on 07/19/17at 08:00; Start 07/16/17 at 09:00 Ondansetron HCl (Zofran Inj) 4 mg Q6H PRN IV PUSH NAUSEA OR VOMITING; Start 07/15/17 at 22:00 Albuterol/ Ipratropium (Duoneb Neb) 1 ampule Q2HR NEB PRN INH WHEEZING; Start 07/15/17 at 22:00 Miscellaneous Information 1 Q361D XX Last administered on 07/16/17at 01:22; Start 07/15/17 at 22:00 Chlorhexidine Gluconate (Chlorhexidine 2% Cloth) 3 pack Taper DAILY@04 TOP ; Start 07/16/17 at 04:00; Stop 07/12/18 at 03:59 Chlorhexidine Gluconate (Chlorhexidine 2% Cloth) 3 pack UNSCH PRN TOP HYGIENIC CARE; Start 07/15/17 at 22:00 Senna/Docusate Sodium (Marisol-Colace) 1 tab BID PO Last administered on 07/19/17 08:00; Start 07/16/17 at 09:00 Magnesium Hydroxide (Milk Of Magnesia Liq) 30 ml Q12H PRN PO Mild constipation Last administered on 07/19/17 08:09; Start 07/15/17 at 22:00 Lactulose (Lactulose Liq) 30 ml DAILY PRN PO SEVERE CONSITIPATION Last administered on 07/19/17 08:09; Start 07/15/17 at 22:00 Oxycodone HCl (Roxicodone) 5 mg Q4H PRN PO pain 4-7 Last administered on 02:17; Start 07/16/17 at 05:00; Stop 07/18/17 at 09:39; Status DC Hydromorphone HCl (Dilaudid Pf Inj) 0.5 mg Q4H PRN IV PUSH pain 8-10 or not taking po Last administered on 07/17/17 14:30; Start 07/16/17 at 03:45; Stop 07/17 at 15:29; Status DC Midazolam HCl (Versed Inj) 5 mg STK-MED ONCE .ROUTE Last administered on 13:19; Start 07/16/17 at 13:19; Stop 07/16/17 at 13:20; Status DC Fentanyl Citrate (fentaNYL INJ) 250 mcg STK-MED ONCE .ROUTE Last administered on 07/16/17 13:19; Start 07/16/17 at 13:19; Stop 07/16/17 at 13:20; Status DC Sodium Chloride 10 ml @ As Directed STK-MED ONCE .ROUTE ; Start 07/16/17 at 13:47 ; Stop 07/16/17 at 13:48; Status DC Cefepime HCl 2000 mg/Sodium Chloride 100 ml @ 200 mls/hr Q8H IV Last administered on 07/19/17at 08:00; Start 07/16/17 at 17:00 Pharmacy Profile Note 0 ml @ 0 mls/hr UNSCH OTHER ; Start 07/17/17 at 11:15 Vancomycin HCl 1000 mg/Sodium Chloride 250 ml @ 250 mls/hr Q12H IV Last administered on 07/19/17 03:01; Start 07/17/17 at 14:00; Stop 07/19/17 at 08:23; Status DC Miscellaneous Information SPECIFIC LAB TO BE DRAWN:VA... ONCE ONCE .XX Last administered on 07/19/17at 02:50; Start 07/19/17 at 01:45; Stop 07/19/17 at 01:46; Status DC Hydromorphone HCl (Dilaudid Pf Inj) 1 mg Q3H PRN IV PUSH pain 8-10 or not taking po Last administered on 07/19/17at 11:15; Start 07/17/17 at 15:30 Oxycodone HCl (Roxicodone) 10 mg Q4H PRN PO pain 4-7 Last administered on at 06:03; Start 07/18/17 at 13:00 Temazepam (Restoril) 7.5 mg ONCE ONCE PO Last administered on 07/18/17at 22:41; Start 07/18/17 at 22:30; Stop 07/18/17 at 22:31; Status DC Vancomycin HCl 1000 mg/Sodium Chloride 250 ml @ 250 mls/hr Q8H IV Last administered on 07/19/17at 10:54; Start 07/19/17 at 10:00 Miscellaneous Information SPECIFIC LAB TO BE DRAWN:VANCOMYCIN TROUGH DATE TO... ONCE ONCE .XX ; Start 07/20/17 at 09:45; Stop 07/20/17 at 09:46 (Can Renteria MD) Medical Decision Making MDM Remarks 42 y/o male 1. T10-11 and L3-4 diskitis with osteomyelitis and a small associated epidural abscess without any neurologic deficits or spinal cord compression noted. Blood cultures are positive for gram negative rods and he has a history of intravenous drug abuse. Remote history of T10 fracture 2 years ago, chronic low back pain and intermittent exacerbations. 2. Bacteremia/sepsis, rule out endocarditis. (Kayce Ge) Plan Plan Remarks f/u cultures lumbar disc aspiration TLSO when out of bed cont antibiotics neuro checks supportive care for pain (Kayce Ge) Attending Statement As above Caprini VTE Risk Assessment Caprini VTE Risk Assessment: Mod/High Risk (score >= 2) VTE Pharm Contraindication: Active bleeding Caprini Risk Assessment Model Point Value = 1 Point Value = 2 Point Value = 3 Point Value = 5 Age 41-60 Minor surgery BMI > 25 kg/m2 Swollen legs Varicose veins or History of unexplained or recurrent spontaneous Oral contraceptives or hormone replacement Sepsis (< 1 month) Serious lung disease, including pneumonia (< 1 month) Abnormal pulmonary function Acute myocardial infarction Congestive heart failure (< 1 month) History of inflammatory bowel disease Medical patient at bed rest Age 61-74 Arthroscopic surgery Major open surgery (> 45 min) Laparoscopic surgery (> 45 min) Malignancy Confined to bed (> 72 hours) Immobilizing plaster cast Central venous access Age >= 75 History of VTE Family history of VTE Factor V Leiden Prothrombin [id number] Lupus anticoagulant Anticardiolipin antibodies Elevated serum homocysteine Heparin-induced thrombocytopenia Other congenital or acquired thrombophilia Stroke (< 1 month) Elective arthroplasty Hip, pelvis, or leg fracture Acute spinal cord injury (< 1 month) Prophylaxis Regimen Total Risk Factor Score Risk Level Prophylaxis Regimen 0-1 Low Early ambulation 2 Moderate Order ONE of the following: *Sequential Compression Device (SCD) *Heparin 5000 units SQ BID 3-4 Higher Order ONE of the following medications: *Heparin 5000 units SQ TID *Enoxaparin/Lovenox 40 mg SQ daily (WT < 150 kg, CrCl > 30 mL/min) *Enoxaparin/Lovenox 30 mg SQ daily (WT < 150 kg, CrCl > 10-29 mL/min) *Enoxaparin/Lovenox 30 mg SQ BID (WT < 150 kg, CrCl > 30 mL/min) AND/OR *Sequential Compression Device (SCD) 5 or more Highest Order ONE of the following medications: *Heparin 5000 units SQ TID (Preferred with Epidurals) *Enoxaparin/Lovenox 40 mg SQ daily (WT < 150 kg, CrCl > 30 mL/min) *Enoxaparin/Lovenox 30 mg SQ daily (WT < 150 kg, CrCl > 10-29 mL/min) *Enoxaparin/Lovenox 30 mg SQ BID (WT < 150 kg, CrCl > 30 mL/min) AND *Sequential Compression Device (SCD) Status post biopsy Cultures are pending Recommend empiric antibiotics until results are available Continue neuro checks in a serial fashion. Pulmonary. Continue aggressive pulmonary toilette, nasotracheal suction, and breathing treatments with nebulizers. Daily PT and OT Nutrition. Tolerating Oral diet Renal. Continue to monitor closely urine output, BUN and creatinine Endocrine. Continue to Monitor serial Acu checks and SSI as needed in detail ID continue to monitor for signs of infection Continue Protonix for stress ulcer prophylaxis Continue Carlos hose and SCD's for DVT prophylaxis Further recommendations will be provided depending on the patient's clinical evaluation and follow up studies. The exam, history, and the medical decision-making described in the above note were completed with the assistance of the mid-level provider. I reviewed and agree with the findings presented. I attest that I had a [id number] encounter with the patient on the same day, and personally performed and documented my assessment and findings in the medical record. (Can Renteria MD) Kayce Ge Jul 17, 2017 11:01 Can Renteria MD Jul 19, 2017 12:40
[2017-07-17] MEDS ORDERED: Vancomycin Consult Pharmacy 1 EA OTHER SCH (11:15)
--- NOTE | 2017-07-17 12:34 | ECHRPT ---
Indication: SEPSIS/ENDOCARDITIS CONCLUSIONS The left ventricular systolic function is normal with an estimated ejection fraction in the range of 55-60%. Normal left ventricular size. Wall thickness is normal. BP: 114 / 75 HR: 85 Rhythm: Sinus MEASUREMENTS (Male / Female) Normal Values Technical Quality:Good 2D ECHO LV Diastolic Diameter PLAX 4.8 cm 4.2 - 5.9 / 3.9 - 5.3 cm LV Systolic Diameter PLAX 3.6 cm IVS Diastolic Thickness 0.7 cm 0.6 - 1.0 / 0.6 - 0.9 cm LVPW Diastolic Thickness 0.7 cm 0.6 - 1.0 / 0.6 - 0.9 cm LV Relative Wall Thickness 0.3 LVOT Diameter 2.0 cm M-MODE Aortic Root Diameter MM 3.1 cm LA Systolic Diameter MM 2.9 cm LA Ao Ratio MM 0.9 AV Cusp Separation MM 2.0 cm DOPPLER AV Peak Velocity 168.0 cm/s AV Peak Gradient 11.3 mmHg LVOT Peak Velocity 122.0 cm/s LVOT Peak Gradient 6.0 mmHg AV Area Cont Eq pk 2.3 cm Mitral E Point Velocity 103.0 cm/s Mitral A Point Velocity 60.7 cm/s Mitral E to A Ratio 1.7 LV E' Lateral Velocity 14.9 cm/s Mitral E to LV E' Lateral Ratio 6.9 LV E' Septal Velocity 5.9 cm/s Mitral E to LV E' Septal Ratio 17.3 PV Peak Velocity 134.0 cm/s PV Peak Gradient 7.2 mmHg FINDINGS LEFT VENTRICLE The left ventricular systolic function is normal with an estimated ejection fraction in the range of 55-60%. Normal left ventricular size. Wall thickness is normal. RIGHT VENTRICLE Normal right ventricular size and systolic function. LEFT ATRIUM The left atrial size is normal. RIGHT ATRIUM The right atrial size is normal. ATRIAL SEPTUM Normal atrial septal thickness without atrial level shunting by limited color doppler interrogation. AORTA The aortic root and proximal ascending aorta are normal in size on limited imaging. MITRAL VALVE Structurally normal mitral valve. No mitral valve stenosis or regurgitation. AORTIC VALVE Trileaflet aortic valve. No aortic valve stenosis or regurgitation. TRICUSPID VALVE Structurally normal tricuspid valve. No tricuspid valve stenosis or regurgitation. PULMONARY VALVE The pulmonary valve is not well visualized. VESSELS The inferior vena cava is normal in size. PERICARDIUM No pericardial effusion. Beth Zuluaga MD, FACC (Electronically Signed) Final Date:17 July 2017 12:33
[2017-07-17 13:06] LABS: IRON (FE) 24 MCG/DL (65-175)
[2017-07-17 13:09] LABS: % SATURATION IRON PROFILE 9.4 % (20-50); FERRITIN 75 NG/ML (26-388); TOTAL IRON BINDING CAPACITY 255 MCG/DL (250-450)
[2017-07-17 13:16] LABS: BICARBONATE 27.8 MEQ/L (21.0-32.0); CALCIUM 8.5 MG/DL (8.5-10.1); CREATININE 0.52 MG/DL (0.60-1.30)
[2017-07-17] MEDS: VANCOMYCIN 1,000 MG/NS 250 ML IV SCH ×2 (15:22)
--- NOTE | 2017-07-17 16:08 | HHI.IDPN ---
Subjective Subjective Remarks Mr. Park is a 42-year-old male with history of IV drug abuse in the past with new onset and worsening back pain. Patient reports he has had pain in the lower back for approximately 5 months but this has acutely gotten worse over the last week. He reports prior history of trauma to the back. He denies any fever and chills. He reports some paresthesias over the last 1 or 2 days but denies any lower extremity weakness. He denies any loss of bowel or bladder function In the emergency department MRI of the total spine demonstrated T10 as well as L3 enhancement suggestive of acute osteomyelitis and discitis. Patient was admitted under the night shift services. Overnight he remained stable. Interventional radiology performed a CT-guided aspiration of the spine. Blood cultures are positive for gram-negative rods. Patient is currently not on any antibiotics. CT-guided aspiration fluid cultures are also pending at the present time. Infectious diseases consulted for evaluation and management of sepsis, gram- negative bacteremia and epidural abscess. Overnight events reviewed No fevers No rash No diarrhea Complains of pain Had 2 BMs after laxatives, after almost 3 days. Feels better but still abdominal discomfort. Antibiotics Cefepime IV Vanco IV Lines Line sites with no e.o infection Past Medical History Chronic back pain status post injury IV drug abuse IR guided biopsy of abscess site this admission. Allergies: Coded Allergies: No Known Allergies (Unverified Adverse Reaction, Unknown, 07/15/17) Objective . Vital Signs Date Time Temp Pulse Resp B/P (MAP) Pulse Ox O2 Delivery O2 Flow Rate FiO2 07/17/17 15:22 18 07/17/17 12:00 99.1 81 18 118/65 (82) 100 07/17/17 12:00 81 07/17/17 10:15 18 07/17/17 08:00 98.9 79 12 115/74 (88) 100 07/17/17 08:00 79 07/17/17 08:00 100 Room Air 07/17/17 04:00 99.1 80 16 113/69 (84) 100 07/17/17 00:00 99.0 80 18 119/71 (87) 100 07/16/17 20:00 99 Room Air 07/16/17 20:00 99.1 96 22 112/67 (82) 99 07/16/17 20:00 98 07/16/17 17:42 18 07/17/17 07/17/17 07/18/17 15:00 23:00 07:00 Intake Total 100 ml Balance 100 ml IV Total 100 ml . Laboratory Tests Test 07/15/17 16:35 07/16/17 04:00 07/17/17 05:30 White Blood Count 21.6 TH/MM3 17.8 TH/MM3 12.6 TH/MM3 Red Blood Count 3.88 MIL/MM3 3.53 MIL/MM3 3.31 MIL/MM3 Hemoglobin 8.9 GM/DL 8.0 GM/DL 7.5 GM/DL Hematocrit 27.0 % 24.6 % 23.6 % Mean Corpuscular Volume 69.6 FL 69.7 FL 71.3 FL Mean Corpuscular Hemoglobin 22.9 PG 22.6 PG 22.6 PG Mean Corpuscular Hemoglobin Concent 32.9 % 32.5 % 31.6 % Red Cell Distribution Width 17.0 % 16.6 % 17.4 % Platelet Count 841 TH/MM3 784 TH/MM3 514 TH/MM3 Mean Platelet Volume 7.4 FL 7.3 FL 7.5 FL Neutrophils (%) (Auto) 83.7 % Lymphocytes (%) (Auto) 10.9 % Monocytes (%) (Auto) 4.9 % Eosinophils (%) (Auto) 0.1 % Basophils (%) (Auto) 0.4 % Neutrophils # (Auto) 18.1 TH/MM3 Lymphocytes # (Auto) 2.4 TH/MM3 Monocytes # (Auto) 1.1 TH/MM3 Eosinophils # (Auto) 0.0 TH/MM3 Basophils # (Auto) 0.1 TH/MM3 CBC Comment DIFF FINAL Differential Comment Erythrocyte Sedimentation Rate GREATER THAN 140 mm/hr Laboratory Tests Test 07/15/17 16:35 07/16/17 04:00 07/17/17 12:01 Blood Urea Nitrogen 9 MG/DL 13 MG/DL 8 MG/DL Creatinine 0.69 MG/DL 0.67 MG/DL 0.52 MG/DL Random Glucose 96 MG/DL 96 MG/DL 82 MG/DL Total Protein 8.7 GM/DL Albumin 2.7 GM/DL Calcium Level 8.8 MG/DL 8.4 MG/DL 8.5 MG/DL Alkaline Phosphatase 109 U/L Aspartate Amino Transf (AST/SGOT) 24 U/L Alanine Aminotransferase (ALT/SGPT) 17 U/L Total Bilirubin 0.4 MG/DL Sodium Level 137 MEQ/L 137 MEQ/L 135 MEQ/L Potassium Level 3.6 MEQ/L 3.6 MEQ/L 3.6 MEQ/L Chloride Level 106 MEQ/L 104 MEQ/L 101 MEQ/L Carbon Dioxide Level 24.5 MEQ/L 26.4 MEQ/L 27.8 MEQ/L Anion Gap 7 MEQ/L 7 MEQ/L 6 MEQ/L Estimat Glomerular Filtration Rate 126 ML/MIN 131 ML/MIN 175 ML/MIN C-Reactive Protein 7.10 MG/DL Iron Level 24 MCG/DL Total Iron Binding Capacity 255 MCG/DL Percent Iron Saturation 9.4 % Ferritin 75 NG/ML Microbiology Date/Time Source Procedure Growth Status 07/17/17 12:01 Blood Peripheral Aerobic Blood Culture Pending Received 07/17/17 12:01 Blood Peripheral Anaerobic Blood Culture Pending Received 07/17/17 04:48 Blood Peripheral Aerobic Blood Culture Pending Received 07/17/17 04:48 Blood Peripheral Anaerobic Blood Culture Pending Received 07/15/17 20:55 Blood Peripheral Aerobic Blood Culture - Preliminary Gram Positive Cocci Resulted 07/15/17 20:55 Anaerobic Blood Culture - Preliminary Gram Negative Frank Resulted 07/15/17 20:50 Blood Peripheral Aerobic Blood Culture - Preliminary Gram Negative Frank Resulted 07/15/17 20:50 Anaerobic Blood Culture - Preliminary Gram Negative Frank Resulted 07/16/17 13:53 Wound Back Fungal Smear - Final NO FUNGAL ELEMENTS SEEN. Resulted 07/16/17 13:53 Wound Back Fungal Culture Pending Resulted 07/16/17 13:53 Wound Back Acid Fast Stain Pending Received 07/16/17 13:53 Wound Back Mycobacterial Culture Pending Received 07/16/17 13:53 Wound Back Gram Stain - Final Resulted 07/16/17 13:53 Wound Back Wound Culture Pending Resulted Imaging Last Impressions Needle Biopsy/Aspiration X-Ray 07/16/17 1021 Signed Impressions: Service Date/Time: Sunday, July 16, 2017 13:12 - CONCLUSION: 1. Uncomplicated L3-4 disc aspiration. Although no fluid could be aspirated, following irrigation with 1 cc of non-bacteriostatic saline approximately 1.5 cc of nearly purulent fluid was aspirated. Daniel Gonzales MD Thoracic Spine MRI 07/15/17 0000 Signed Impressions: Service Date/Time: July 19:39 - CONCLUSION: Diffuse enhancement involving the lower two thirds of the T10 vertebral body and the upper two thirds of the T11 vertebral body suggestive of acute osteomyelitis likely surrounding an acute discitis at T10-11. There is enhancing epidural tissue along the left anterior lateral aspect of the thecal sac at this level which results in slight effacement of the thoracic cord and moderate spinal stenosis at this level. There is kyphosis of the thoracic spine at the T10-11 level. There is also acute compression deformities involving T10 and T11. Yonatan Blake MD Lumbar Spine MRI 07/15/17 Signed Impressions: Service Date/Time: July 19:39 - CONCLUSION: 1. Enhancement of the lower two thirds of L3 and the upper two thirds of L4 consistent with probable acute osteomyelitis surrounding discitis at L3-4. There is also enhancing epidural tissue posterior to the L3-4 level which results in slight effacement of the anterior thecal sac and mild spinal stenosis at this level. Paravertebral enhancing soft tissue is noted surrounding L3 and L4. 2. Severe bilateral foraminal narrowing is noted at L3-4. 3. Moderate to severe bilateral foraminal narrowing is noted at L4-5. Yonatan Blake MD Chest X-Ray 07/15/17 Signed Impressions: Service Date/Time: July 22:12 - CONCLUSION: 1. No acute cardiopulmonary disease. 2. Compression fractures and kyphosis at T10 and T11 consistent with known osteomyelitis and discitis at these levels. Yonatan Blake MD Cervical Spine MRI 07/15/17 Signed Impressions: Service Date/Time: July 19:39 - CONCLUSION: 1. No evidence of acute osteomyelitis or acute discitis within the cervical spine. 2. Mild spinal stenosis, mild to moderate left neuroforaminal narrowing and mild right neural foraminal narrowing at C6-7 secondary to broad-based left paracentral/lateral disc bulge, facet joint hypertrophy and uncovertebral joint spurring. 3. Minimal spinal stenosis and mild bilateral foraminal narrowing at C5-6. 4. Cervical spondylosis at C5-6 and C6-7. Yonatan Blake MD Physical Exam GENERAL: This is a well-nourished, well-developed patient, in no apparent distress. SKIN: No rashes, ecchymoses or lesions. Cool and dry. HEAD: Atraumatic. Normocephalic. No temporal or scalp tenderness. EYES: Pupils equal round and reactive. Extraocular motions intact. No scleral icterus. No injection or drainage. ENT: Nose without bleeding, purulent drainage or septal hematoma. Throat without erythema, tonsillar hypertrophy or exudate. Uvula midline. Airway patent. NECK: Trachea midline. Supple, nontender, no meningeal signs. CARDIOVASCULAR: Regular rate and rhythm without murmurs, gallops, or rubs. RESPIRATORY: Clear to auscultation. Breath sounds equal bilaterally. No wheezes , rales, or rhonchi. GASTROINTESTINAL: Abdomen soft, non-tender, nondistended. MUSCULOSKELETAL: Extremities without clubbing, cyanosis, or edema. No joint tenderness, effusion, or edema noted. No calf tenderness. Negative Homans sign bilaterally. NEUROLOGICAL: Awake and alert. Non focal, moves all 4 extremities. Psych cooperative IV line sites with no e.o infection Assessment & Plan Remarks Sepsis present on admission Gram negative bacteremia: source spine and possible endocarditis. Gram positive bacteremia. Thoracic and Lumbar osteomyelitis and myositis s/p CT guided aspiration. Elevated CRP. IVDU Recs: Continue Cefepime 2 gm IV q8hrs pending cultures. IVDU concern for PSAE. Start Vanco IV (target 15-20) Hepatitis profile pending. HIV antibody screen pending. 2D ECHO no vegetations. CRP elevated at 7.[address] Chest, Abd/pelvis in next day or two. Patient has received contrast will wait another day or two unless clinical change. Follow cultures Follow clinically. Tressa Rdz MD Jul 17, 2017 16:08
[2017-07-17] MEDS: SODIUM CHLOR 0.9% 1000 ML INJ 1,000 ML IV SCH ×2 (18:23→22:27)
[2017-07-18] VITALS (7 sets, daily range): BP systolic 112–161; BP diastolic 66–79; PULSE 80–93; RESP 18–24; TEMP 97.8–99.6; O2SAT 96–100
[2017-07-18] MEDS: CHLORHEXIDINE GLUCONATE 2 % 1 PACK (2 CLOTHS) TOP SCH (01:45)
[2017-07-18] MEDS: VANCOMYCIN 1,000 MG/NS 250 ML IV SCH ×4 (02:17→13:46)
[2017-07-18] MEDS: HYDROmorphone HCL PF 2 MG/ML VIAL IV PUSH PRN ×7 (03:20→22:43)
[2017-07-18 05:21] LABS: AUTOMATED NEUTROPHIL # 10.7 TH/MM3 (1.8-7.7); BASOPHIL # 0.1 TH/MM3 (0-0.2); BASOPHIL % 0.5 % (0.0-2.0); EOSINOPHIL # 0.2 TH/MM3 (0-0.4); EOSINOPHIL % 1.2 % (0.0-4.0); HEMATOCRIT 25.2 % (39.0-51.0); LYMPH % 15.5 % (9.0-44.0); LYMPHOCYTE # 2.2 TH/MM3 (1.0-4.8); MEAN CORPUSCULAR HEMOGLOBIN 22.2 PG (27.0-34.0); MEAN CORPUSCULAR HGB CONC 31.7 % (32.0-36.0); MONO % 7.3 % (0.0-8.0); NEUT % 75.5 % (16.0-70.0); PLATELET COUNT 796 TH/MM3 (150-450); RED BLOOD COUNT 3.59 MIL/MM3 (4.50-5.90); RED CELL DISTRIBUTION WIDTH 17.6 % (11.6-17.2); WHITE BLOOD COUNT 14.2 TH/MM3 (4.0-11.0)
[2017-07-18 05:40] LABS: BICARBONATE 28.6 MEQ/L (21.0-32.0); CALCIUM 8.4 MG/DL (8.5-10.1); CREATININE 0.55 MG/DL (0.60-1.30)
[2017-07-18] MEDS: SODIUM CHLORIDE 0.9% FLUSH 10 ML FLUSH IV FLUSH PRN ×2 (07:36→10:41)
[2017-07-18] MEDS: CEFEPIME INJ 2,000 MG in SODIUM CHLORIDE 0.9% INJ 100 ML IV SCH ×2 (07:37→16:44)
[2017-07-18] MEDS: FAMOTIDINE 20 MG TAB PO SCH ×2 (07:37→19:43)
[2017-07-18] MEDS: DOCUSATE SODIUM 50 MG/SENNA 8.6 MG TAB PO SCH ×2 (07:37→19:43)
[2017-07-18] MEDS: MAGNESIUM HYDROXIDE SUSP 30 ML CUP PO PRN (07:44)
[2017-07-18] MEDS: LACTULOSE SYRUP 20 GM/30 ML CUP PO PRN (07:44)
[2017-07-18] MEDS: SODIUM CHLOR 0.9% 1000 ML INJ 1,000 ML IV SCH ×2 (07:44→20:25)
--- NOTE | 2017-07-18 09:42 | HHI.PR ---
Subjective Remarks in no acute distress. but complaining of severe back pain. remains afebrile. Objective Vitals Vital Signs Date Time Temp Pulse Resp B/P (MAP) Pulse Ox O2 Delivery O2 Flow Rate FiO2 07/18/17 09:21 100 21 07/18/17 07:46 98.5 84 20 113/76 (88) 96 07/18/17 04:37 98.3 82 24 120/74 (89) 100 07/18/17 03:50 20 07/18/17 03:17 20 07/18/17 00:11 97.8 84 20 112/68 (83) 100 07/17/17 21:26 100 21 07/17/17 20:13 98.8 92 18 132/69 (90) 100 07/17/17 20:13 Room Air 07/17/17 20:00 82 07/17/17 16:00 99.6 87 18 119/69 (86) 100 07/17/17 16:00 87 07/17/17 12:00 99.1 81 18 118/65 (82) 100 07/17/17 12:00 81 07/17/17 10:15 18 I/O 07/17/17 07/17/17 07/17/17 07/18/17 07/18/17 07/18/17 07:00 15:00 23:00 07:00 15:00 23:00 Intake Total 720 ml 100 ml 1950 ml Output Total 1150 ml 1800 ml 1350 ml Balance -430 ml 100 ml 150 ml -1350 ml Intake Oral 720 ml 600 ml IV Total 100 ml 1350 ml Output Urine Total 1150 ml 1800 ml 1350 ml # Bowel Movements 2 Result Diagram: 07/18/17 0423 07/18/17 0423 Imaging Last Impressions Needle Biopsy/Aspiration X-Ray 07/16/17 1021 Signed Impressions: Service Date/Time: Sunday, July 16, 2017 13:12 - CONCLUSION: 1. Uncomplicated L3-4 disc aspiration. Although no fluid could be aspirated, following irrigation with 1 cc of non-bacteriostatic saline approximately 1.5 cc of nearly purulent fluid was aspirated. Daniel Gonzales MD Thoracic Spine MRI 07/15/17 0000 Signed Impressions: Service Date/Time: July 19:39 - CONCLUSION: Diffuse enhancement involving the lower two thirds of the T10 vertebral body and the upper two thirds of the T11 vertebral body suggestive of acute osteomyelitis likely surrounding an acute discitis at T10-11. There is enhancing epidural tissue along the left anterior lateral aspect of the thecal sac at this level which results in slight effacement of the thoracic cord and moderate spinal stenosis at this level. There is kyphosis of the thoracic spine at the T10-11 level. There is also acute compression deformities involving T10 and T11. Yonatan Blake MD Lumbar Spine MRI 07/15/17 0000 Signed Impressions: Service Date/Time: July 19:39 - CONCLUSION: 1. Enhancement of the lower two thirds of L3 and the upper two thirds of L4 consistent with probable acute osteomyelitis surrounding discitis at L3-4. There is also enhancing epidural tissue posterior to the L3-4 level which results in slight effacement of the anterior thecal sac and mild spinal stenosis at this level. Paravertebral enhancing soft tissue is noted surrounding L3 and L4. 2. Severe bilateral foraminal narrowing is noted at L3-4. 3. Moderate to severe bilateral foraminal narrowing is noted at L4-5. Yonatan Blake MD Chest X-Ray 07/15/17 0000 Signed Impressions: Service Date/Time: July 22:12 - CONCLUSION: 1. No acute cardiopulmonary disease. 2. Compression fractures and kyphosis at T10 and T11 consistent with known osteomyelitis and discitis at these levels. Yonatan Blake MD Cervical Spine MRI 07/15/17 0000 Signed Impressions: Service Date/Time: July 19:39 - CONCLUSION: 1. No evidence of acute osteomyelitis or acute discitis within the cervical spine. 2. Mild spinal stenosis, mild to moderate left neuroforaminal narrowing and mild right neural foraminal narrowing at C6-7 secondary to broad-based left paracentral/lateral disc bulge, facet joint hypertrophy and uncovertebral joint spurring. 3. Minimal spinal stenosis and mild bilateral foraminal narrowing at C5-6. 4. Cervical spondylosis at C5-6 and C6-7. Yonatan Blake MD Objective Remarks GENERAL: in no apparent distress but looks uncomfortable with the pain. CARDIOVASCULAR: Regular rate and regular rhythm without murmurs, gallops, or rubs. RESPIRATORY: Clear to auscultation. Breath sounds equal bilaterally. No wheezes , rales, or rhonchi. GASTROINTESTINAL: Abdomen soft, non-tender, nondistended. Normal, active bowel sounds MUSCULOSKELETAL: Extremities without clubbing, cyanosis, or edema. NEURO: Alert & Oriented x4 to person, place, time, situation. Moves all ext x4 Procedures needle aspiration of the lumbar spine Medications and IVs Inpatient Medications Acetaminophen (Tylenol) 650 mg Q6H PRN PO PAIN 1-3 AND/OR FEVER >101F Last administered on 07/16/17 16:31; Start 07/15/17 at 22:00 Albuterol/ Ipratropium (Duoneb Neb) 1 ampule Q2HR NEB PRN INH WHEEZING; Start 07/15/17 at 22:00 Cefepime HCl 2000 mg/Sodium Chloride 100 ml @ 200 mls/hr Q8H IV Last administered on 07/18/17 07:37; Start 07/16/17 at 17:00 Ceftriaxone Sodium 2000 mg/ Sodium Chloride 100 ml @ 200 mls/hr ONCE ONCE IV Last administered on 07/15/17at 20:47; Start 07/15/17 at 18:45; Stop 07/15/17 at 19: 14; Status DC Chlorhexidine Gluconate (Chlorhexidine 2% Cloth) 3 pack UNSCH PRN TOP HYGIENIC CARE; Start 07/15/17 at 22:00 Famotidine (Pepcid) 20 mg Q12HR PO Last administered on 07/18/17 07:37; Start 07/16/17 at 09:00 Hydromorphone HCl (Dilaudid Pf Inj) 1 mg Q3H PRN IV PUSH pain 8-10 or not taking po Last administered on 07/18/17 07:35; Start 07/17/17 at 15:30 Ketorolac Tromethamine (Toradol Inj) 30 mg ONCE ONCE IVP Last administered on 07/15/17 16:53; Start 07/15/17 at 16:15; Stop 07/15/17 at 16:16; Status DC Lactulose (Lactulose Liq) 30 ml DAILY PRN PO SEVERE CONSITIPATION Last administered on 07/18/17 07:44; Start 07/15/17 at 22:00 Magnesium Hydroxide (Milk Of Magnesia Liq) 30 ml Q12H PRN PO Mild constipation Last administered on 07/18/17at 07:44; Start 07/15/17 at 22:00 Magnesium Oxide (Mag-Ox) 800 mg UNSCH PRN PO For Magnesium 1.2 - 1.6 mg/dL; Start 07/15/17 at 22:00 Magnesium Sulfate 2 gm/Sodium Chloride 100 ml @ 50 mls/hr UNSCH PRN IV For Magnesium 1.2 - 1.6 mg/dL; Start 07/15/17 at 22:00 Magnesium Sulfate 4 gm/Sodium Chloride 100 ml @ 50 mls/hr UNSCH PRN IV For Magnesium 0.9 - 1.1 mg/dL; Start 07/15/17 at 22:00 Miscellaneous Information SPECIFIC LAB TO BE DRAWN:[facility]... ONCE ONCE .XX ; Start 07/19/17 at 01:45; Stop 07/19/17 at 01:46 Morphine Sulfate (Morphine Inj) 6 mg ONCE ONCE IV PUSH Last administered on 07/15/17at 18:45; Start 07/15/17 at 18:45; Stop 07/15/17 at 18:46; Status DC Ondansetron HCl (Zofran Inj) 4 mg Q6H PRN IV PUSH NAUSEA OR VOMITING; Start 07/15/17 at 22:00 Oxycodone HCl (Roxicodone) 5 mg Q4H PRN PO pain 4-7 Last administered on at 02:17; Start 07/16/17 at 05:00 Pharmacy Profile Note 0 ml @ 0 mls/hr UNSCH OTHER ; Start 07/17/17 at 11:15 Potassium Phosphate (K-Phos) 2,000 mg UNSCH PRN PO/TUBE SEE LABEL COMMENTS; Start 07/15/17 at 22:00 Potassium Phosphate 30 mmol/ Sodium Chloride 260 ml @ 42 mls/hr UNSCH PRN IV SEE LABEL COMMENTS; Start 07/15/17 at 22:00 Potassium Bicarb/ Potassium Chloride (K-Lyte Cl Eff) 50 meq UNSCH PRN PO For Potassium 3.3 - 3.5 mEq/L; Start 07/15/17 at 22:00 Potassium Chloride 100 ml @ 50 mls/hr Q2H PRN IV For Potassium 3.3 - 3.5 mEq/L ; Start 07/15/17 at 22:00 Senna/Docusate Sodium (Marisol-Colace) 1 tab BID PO Last administered on 07/18/17at 07:37; Start 07/16/17 at 09:00 Sodium Chloride 1,000 ml @ 84 mls/hr [id number] IV Last administered on 07/18/17at 07:44; Start 07/15/17 at 21:48 Sodium Chloride (NS Flush) 2 ml UNSCH PRN IV FLUSH FLUSH AFTER USING IV ACCESS Last administered on 07/18/17at 07:36; Start 07/15/17 at 16:15 Sodium Phosphate 30 mmol/Sodium Chloride 250 ml @ 42 mls/hr UNSCH PRN IV For Phosphorus < 2.5 mg/dL; Start 07/15/17 at 22:00 Vancomycin HCl 1000 mg/Sodium Chloride 250 ml @ 250 mls/hr Q12H IV Last administered on 07/18/17at 02:17; Start 07/17/17 at 14:00 Vancomycin HCl 1750 mg/Sodium Chloride 517.5 ml @ 258.75 mls/ hr ONCE ONCE IV Last administered on 07/15/17at 21:22; Start 07/15/17 at 18:45; Stop 07/15/17 at 20:44; Status DC A/P Problem List: (1) Discitis ICD Code: M46.40 - Discitis, unspecified, site unspecified Status: Acute (2) IV drug abuse ICD Code: F19.10 - Other psychoactive substance abuse, uncomplicated Status: Acute Assessment and Plan T-spine/L-spine discitis/osteomyelitis/IV drug abuse bacteremia Acute back pain s/p needle aspiration of the lumbar spine. continue with IV antibiotics per ID. follow the blood cultures. echo negative for vegetation. continue with pain control; pain is not well controlled; will increase oxycodone ; will monitor and adjust the regimen as needed. neurosurgery and ID following. anemia- likely due to chronic disease check iron profile and stool for blood- monitor H/H and transfuse as needed. DVT prophylaxis with SCD's. consult PT. Problem Qualifiers (1) Discitis: Qualified Codes: M46.40 - Discitis, unspecified, site unspecified Evelio Moon MD Jul 18, 2017 09:42
[2017-07-18] MEDS ORDERED: TEMAZEPAM 7.5 MG CAP PO ONE (22:30)
[2017-07-19] VITALS: BP 118/63; PULSE 85; RESP 28; TEMP 98.9; O2SAT 99
[2017-07-19] MEDS: CEFEPIME INJ 2,000 MG in SODIUM CHLORIDE 0.9% INJ 100 ML IV SCH ×3 (00:20→17:02)
[2017-07-19] MEDS: HYDROmorphone HCL PF 2 MG/ML VIAL IV PUSH PRN ×8 (01:36→23:23)
[2017-07-19] MEDS ORDERED: PHARMACY ORDERED LAB ONE (01:45)
[2017-07-19] MEDS: VANCOMYCIN 1,000 MG/NS 250 ML IV SCH ×6 (03:01→18:08)
[2017-07-19 03:05] LABS: HEMATOCRIT 27.5 % (39.0-51.0); HEMOGLOBIN 8.8 GM/DL (13.0-17.0); MEAN CELL VOLUME 70.8 FL (80.0-100.0); MEAN CORPUSCULAR HEMOGLOBIN 22.6 PG (27.0-34.0); MEAN CORPUSCULAR HGB CONC 31.9 % (32.0-36.0); MEAN PLATELET VOLUME 7.1 FL (7.0-11.0); PLATELET COUNT 825 TH/MM3 (150-450); RED BLOOD COUNT 3.89 MIL/MM3 (4.50-5.90); RED CELL DISTRIBUTION WIDTH 18.3 % (11.6-17.2); WHITE BLOOD COUNT 15.9 TH/MM3 (4.0-11.0)
[2017-07-19 03:29] LABS: BICARBONATE 30.6 MEQ/L (21.0-32.0); CALCIUM 8.7 MG/DL (8.5-10.1); CREATININE 0.55 MG/DL (0.60-1.30)
[2017-07-19] MEDS: CHLORHEXIDINE GLUCONATE 2 % 1 PACK (2 CLOTHS) TOP SCH (04:00)
[2017-07-19 04:13] VITALS: BP 103/64; PULSE 77; RESP 21; TEMP 98.2; O2SAT 100
[2017-07-19 08:00] VITALS: BP 128/74; PULSE 80; RESP 19; TEMP 98.1; O2SAT 100
[2017-07-19] MEDS: FAMOTIDINE 20 MG TAB PO SCH ×2 (08:00→20:22)
[2017-07-19] MEDS: DOCUSATE SODIUM 50 MG/SENNA 8.6 MG TAB PO SCH ×2 (08:00→20:22)
[2017-07-19] MEDS: MAGNESIUM HYDROXIDE SUSP 30 ML CUP PO PRN (08:09)
[2017-07-19] MEDS: LACTULOSE SYRUP 20 GM/30 ML CUP PO PRN (08:09)
--- NOTE | 2017-07-19 10:09 | HHI.PR ---
Subjective Remarks in no acute distress. has some lower abdominal pain. remains afebrile. Objective Vitals Vital Signs Date Time Temp Pulse Resp B/P (MAP) Pulse Ox O2 Delivery O2 Flow Rate FiO2 07/19/17 08:00 98.1 80 19 128/74 (92) 100 07/19/17 04:13 98.2 77 21 103/64 (77) 100 07/19/17 00:00 98.9 85 28 118/63 (81) 99 07/18/17 20:00 93 07/18/17 20:00 99.0 92 18 126/79 (95) 100 07/18/17 20:00 Room Air 07/18/17 16:49 99.6 80 20 116/66 (83) 99 07/18/17 11:53 98.6 84 20 123/70 (87) 99 I/O 07/18/17 07/18/17 07/18/17 07/19/17 07/19/17 07/19/17 07:00 15:00 23:00 07:00 15:00 23:00 Intake Total 1960 ml 1330 ml Output Total 1350 ml 2000 ml Balance -1350 ml 1960 ml -670 ml Intake Oral 960 ml 980 ml IV Total 1000 ml 350 ml Output Urine Total 1350 ml 2000 ml # Voids 1 # Bowel Movements 2 Result Diagram: 07/19/17 0257 07/19/17 0257 Imaging Last Impressions Needle Biopsy/Aspiration X-Ray 07/16/17 1021 Signed Impressions: Service Date/Time: Sunday, July 16, 2017 13:12 - CONCLUSION: 1. Uncomplicated L3-4 disc aspiration. Although no fluid could be aspirated, following irrigation with 1 cc of non-bacteriostatic saline approximately 1.5 cc of nearly purulent fluid was aspirated. Daniel Gonzales MD Thoracic Spine MRI 07/15/17 0000 Signed Impressions: Service Date/Time: July 19:39 - CONCLUSION: Diffuse enhancement involving the lower two thirds of the T10 vertebral body and the upper two thirds of the T11 vertebral body suggestive of acute osteomyelitis likely surrounding an acute discitis at T10-11. There is enhancing epidural tissue along the left anterior lateral aspect of the thecal sac at this level which results in slight effacement of the thoracic cord and moderate spinal stenosis at this level. There is kyphosis of the thoracic spine at the T10-11 level. There is also acute compression deformities involving T10 and T11. Yonatan Blake MD Lumbar Spine MRI 07/15/17 Signed Impressions: Service Date/Time: July 19:39 - CONCLUSION: 1. Enhancement of the lower two thirds of L3 and the upper two thirds of L4 consistent with probable acute osteomyelitis surrounding discitis at L3-4. There is also enhancing epidural tissue posterior to the L3-4 level which results in slight effacement of the anterior thecal sac and mild spinal stenosis at this level. Paravertebral enhancing soft tissue is noted surrounding L3 and L4. 2. Severe bilateral foraminal narrowing is noted at L3-4. 3. Moderate to severe bilateral foraminal narrowing is noted at L4-5. Yonatan Blake MD Chest X-Ray 07/15/17 0000 Signed Impressions: Service Date/Time: July 22:12 - CONCLUSION: 1. No acute cardiopulmonary disease. 2. Compression fractures and kyphosis at T10 and T11 consistent with known osteomyelitis and discitis at these levels. Yonatan Blake MD Cervical Spine MRI 07/15/17 0000 Signed Impressions: Service Date/Time: July 19:39 - CONCLUSION: 1. No evidence of acute osteomyelitis or acute discitis within the cervical spine. 2. Mild spinal stenosis, mild to moderate left neuroforaminal narrowing and mild right neural foraminal narrowing at C6-7 secondary to broad-based left paracentral/lateral disc bulge, facet joint hypertrophy and uncovertebral joint spurring. 3. Minimal spinal stenosis and mild bilateral foraminal narrowing at C5-6. 4. Cervical spondylosis at C5-6 and C6-7. Yonatan Blake MD Objective Remarks GENERAL: in no apparent distress but looks uncomfortable with the pain. CARDIOVASCULAR: Regular rate and regular rhythm without murmurs, gallops, or rubs. RESPIRATORY: Clear to auscultation. Breath sounds equal bilaterally. No wheezes , rales, or rhonchi. GASTROINTESTINAL: Abdomen soft, non-tender, nondistended. Normal, active bowel sounds MUSCULOSKELETAL: Extremities without clubbing, cyanosis, or edema. NEURO: Alert & Oriented x4 to person, place, time, situation. Moves all ext x4 Procedures needle aspiration of the lumbar spine Medications and IVs Inpatient Medications Acetaminophen (Tylenol) 650 mg Q6H PRN PO PAIN 1-3 AND/OR FEVER >101F Last administered on 07/16/17 16:31; Start 07/15/17 at 22:00 Albuterol/ Ipratropium (Duoneb Neb) 1 ampule Q2HR NEB PRN INH WHEEZING; Start 07/15/17 at 22:00 Cefepime HCl 2000 mg/Sodium Chloride 100 ml @ 200 mls/hr Q8H IV Last administered on 07/19/17at 08:00; Start 07/16/17 at 17:00 Ceftriaxone Sodium 2000 mg/ Sodium Chloride 100 ml @ 200 mls/hr ONCE ONCE IV Last administered on 07/15/17at 20:47; Start 07/15/17 at 18:45; Stop 07/15/17 at 19: 14; Status DC Chlorhexidine Gluconate (Chlorhexidine 2% Cloth) 3 pack UNSCH PRN TOP HYGIENIC CARE; Start 07/15/17 at 22:00 Famotidine (Pepcid) 20 mg Q12HR PO Last administered on 07/19/17 08:00; Start 07/16/17 at 09:00 Hydromorphone HCl (Dilaudid Pf Inj) 1 mg Q3H PRN IV PUSH pain 8-10 or not taking po Last administered on 07/19/17at 07:59; Start 07/17/17 at 15:30 Ketorolac Tromethamine (Toradol Inj) 30 mg ONCE ONCE IVP Last administered on 07/15/17at 16:53; Start 07/15/17 at 16:15; Stop 07/15/17 at 16:16; Status DC Lactulose (Lactulose Liq) 30 ml DAILY PRN PO SEVERE CONSITIPATION Last administered on 07/19/17 08:09; Start 07/15/17 at 22:00 Magnesium Hydroxide (Milk Of Magnesia Liq) 30 ml Q12H PRN PO Mild constipation Last administered on 07/19/17 08:09; Start 07/15/17 at 22:00 Magnesium Oxide (Mag-Ox) 800 mg UNSCH PRN PO For Magnesium 1.2 - 1.6 mg/dL; Start 07/15/17 at 22:00 Magnesium Sulfate 2 gm/Sodium Chloride 100 ml @ 50 mls/hr UNSCH PRN IV For Magnesium 1.2 - 1.6 mg/dL; Start 07/15/17 at 22:00 Magnesium Sulfate 4 gm/Sodium Chloride 100 ml @ 50 mls/hr UNSCH PRN IV For Magnesium 0.9 - 1.1 mg/dL; Start 07/15/17 at 22:00 Miscellaneous Information SPECIFIC LAB TO BE DRAWN:VANCOMYCIN TROUGH DATE TO... ONCE ONCE .XX ; Start 07/20/17 at 09:45; Stop 07/20/17 at 09:46 Morphine Sulfate (Morphine Inj) 6 mg ONCE ONCE IV PUSH Last administered on 07/15/17at 18:45; Start 07/15/17 at 18:45; Stop 07/15/17 at 18:46; Status DC Ondansetron HCl (Zofran Inj) 4 mg Q6H PRN IV PUSH NAUSEA OR VOMITING; Start 07/15/17 at 22:00 Oxycodone HCl (Roxicodone) 10 mg Q4H PRN PO pain 4-7 Last administered on at 06:03; Start 07/18/17 at 13:00 Pharmacy Profile Note 0 ml @ 0 mls/hr UNSCH OTHER ; Start 07/17/17 at 11:15 Potassium Phosphate (K-Phos) 2,000 mg UNSCH PRN PO/TUBE SEE LABEL COMMENTS; Start 07/15/17 at 22:00 Potassium Phosphate 30 mmol/ Sodium Chloride 260 ml @ 42 mls/hr UNSCH PRN IV SEE LABEL COMMENTS; Start 07/15/17 at 22:00 Potassium Bicarb/ Potassium Chloride (K-Lyte Cl Eff) 50 meq UNSCH PRN PO For Potassium 3.3 - 3.5 mEq/L; Start 07/15/17 at 22:00 Potassium Chloride 100 ml @ 50 mls/hr Q2H PRN IV For Potassium 3.3 - 3.5 mEq/L ; Start 07/15/17 at 22:00 Senna/Docusate Sodium (Marisol-Colace) 1 tab BID PO Last administered on 07/19/17at 08:00; Start 07/16/17 at 09:00 Sodium Chloride 1,000 ml @ 84 mls/hr [id number] IV Last administered on 07/18/17at 20:25; Start 07/15/17 at 21:48 Sodium Chloride (NS Flush) 2 ml UNSCH PRN IV FLUSH FLUSH AFTER USING IV ACCESS Last administered on 07/18/17at 10:41; Start 07/15/17 at 16:15 Sodium Phosphate 30 mmol/Sodium Chloride 250 ml @ 42 mls/hr UNSCH PRN IV For Phosphorus < 2.5 mg/dL; Start 07/15/17 at 22:00 Temazepam (Restoril) 7.5 mg ONCE ONCE PO Last administered on 07/18/17at 22:41; Start 07/18/17 at 22:30; Stop 07/18/17 at 22:31; Status DC Vancomycin HCl 1000 mg/Sodium Chloride 250 ml @ 250 mls/hr Q8H IV ; Start at 10:00 Vancomycin HCl 1750 mg/Sodium Chloride 517.5 ml @ 258.75 mls/ hr ONCE ONCE IV Last administered on 07/15/17at 21:22; Start 07/15/17 at 18:45; Stop 07/15/17 at 20:44; Status DC A/P Problem List: (1) Discitis ICD Code: M46.40 - Discitis, unspecified, site unspecified Status: Acute (2) IV drug abuse ICD Code: F19.10 - Other psychoactive substance abuse, uncomplicated Status: Acute Assessment and Plan T-spine/L-spine discitis/osteomyelitis/IV drug abuse bacteremia with serratia Acute back pain s/p needle aspiration of the lumbar spine. continue with IV antibiotics per ID. repeated blood cultures negative so far. echo negative for vegetation. continue with pain control. neurosurgery and ID following. anemia- likely due to chronic disease check iron profile and stool for blood- monitor H/H and transfuse as needed. thrombocytosis- reactive will monitor. DVT prophylaxis with SCD's. consulted PT. Problem Qualifiers (1) Discitis: Qualified Codes: M46.40 - Discitis, unspecified, site unspecified Evelio Moon MD Jul 19, 2017 10:09
[2017-07-19 10:36] LABS: HEPATITIS A AB IGM NEGATIVE (NEGATIVE); HEPATITIS B CORE AB IGM NEGATIVE (NEGATIVE)
[2017-07-19] MEDS: SODIUM CHLOR 0.9% 1000 ML INJ 1,000 ML IV SCH ×2 (11:15→23:04)
[2017-07-19 12:00] VITALS: BP 101/62; PULSE 76; RESP 16; TEMP 98; O2SAT 99
[2017-07-19 16:00] VITALS: BP 101/52; PULSE 72; RESP 16; TEMP 98.9; O2SAT 100
[2017-07-19 16:19] LABS: BILIRUBIN, URINE NEG (NEG); BLOOD, URINE NEG (NEG); GLUCOSE,URINE NEG (NEG); KETONE, URINE NEG (NEG); MUCUS URINE FEW /lpf (OCC); NITRITE,URINE NEG (NEG); URINE COLOR YELLOW (YELLW/STRAW); URINE LEUKOCYTE ESTERASE NEG (NEG)
[2017-07-19 20:20] VITALS: BP 113/60; PULSE 83; RESP 18; TEMP 98.2; O2SAT 96
--- NOTE | 2017-07-19 23:16 | HHI.NSPN ---
History Chief Complaint: abdominal discomfort Interval History 42-year-old male admitted for T10-11, L3-[address]-guided biopsy. No complaint of neck pain Complains of abdominal and low back pain. No complaint of extremity pain weakness or numbness Exam Results Vital Signs Date Time Temp Pulse Resp B/P (MAP) Pulse Ox O2 Delivery O2 Flow Rate FiO2 07/19/17 21:13 20 07/19/17 20:20 98.2 83 113/60 (77) 96 07/19/17 18:00 Room Air 21 Intake and Output 07/19/17 07/19/17 07/20/17 08:00 16:00 00:00 Intake Total 1330 ml 1000 ml Output Total 2000 ml 800 ml 1400 ml Balance -670 ml -800 ml -400 ml Physical Examination HEAD: Normocephalic, atraumatic. NECK: soft, supple CHEST: Clear to auscultation bilaterally. HEART: Regular rate and rhythm. Abdomen: Mild diffuse mid lower abdominal discomfort to deep palpation. Abdomen nondistended. No guarding. EXTREMITIES: No cyanosis, edema or deformity. SPINE: He has tenderness along the lumbar aspect to palpation. GENERAL CONDITION: This is a middle aged gentleman, appears somewhat uncomfortable, complaining of abdominal discomfort. NEUROLOGIC: He is awake, alert. He is oriented x 3. Cranial nerves are grossly intact. Motor strength in the upper and lower extremities is 5/5, negative Babinski, negative clonus. Light touch sensation is intact in the upper and lower extremities. Speech is fluent. Lab, Micro, Other Results Laboratory Tests Test 07/19/17 02:57 07/19/17 14:20 White Blood Count 15.9 TH/MM3 Red Blood Count 3.89 MIL/MM3 Hemoglobin 8.8 GM/DL Hematocrit 27.5 % Mean Corpuscular Volume 70.8 FL Mean Corpuscular Hemoglobin 22.6 PG Mean Corpuscular Hemoglobin Concent 31.9 % Red Cell Distribution Width 18.3 % Platelet Count 825 TH/MM3 Mean Platelet Volume 7.1 FL Blood Urea Nitrogen 8 MG/DL Creatinine 0.55 MG/DL Random Glucose 98 MG/DL Calcium Level 8.7 MG/DL Sodium Level 134 MEQ/L Potassium Level 4.0 MEQ/L Chloride Level 99 MEQ/L Carbon Dioxide Level 30.6 MEQ/L Anion Gap 4 MEQ/L Estimat Glomerular Filtration Rate 164 ML/MIN Vancomycin Level Trough 5.7 MCG/ML Urine Color YELLOW Urine Turbidity CLEAR Urine pH 7.0 Urine Specific [place] 1.017 Urine Protein TRACE mg/dL Urine Glucose (UA) NEG mg/dL Urine Ketones NEG mg/dL Urine Occult Blood NEG Urine Nitrite NEG Urine Bilirubin NEG Urine Urobilinogen LESS THAN 2.0 MG/DL Urine Leukocyte Esterase NEG Urine RBC 1 /hpf Urine WBC 1 /hpf Urine Mucus FEW /lpf Microscopic Urinalysis Comment CULT NOT INDICATED Medical Decision Making Impression and Plan Impression: 1. T10 11, L3 4 discitis. Intact neurologic exam Plan: Findings discussed with patient Continue therapy, mobilized out of bed as tolerated Abdominal exam benign this morning. Continue to monitor vital signs, laboratory. Follow-up CT scan as indicated based on clinical course. Infectious disease following. Remains on IV antibiotics. On IV cefepime and vancomycin Toño Buckley MD Jul 19, 2017 23:16
[2017-07-20 00:16] VITALS: BP 114/68; PULSE 86; RESP 18; TEMP 99.1; O2SAT 97
[2017-07-20] MEDS: CEFEPIME INJ 2,000 MG in SODIUM CHLORIDE 0.9% INJ 100 ML IV SCH ×3 (00:34→17:04)
[2017-07-20] MEDS: VANCOMYCIN 1,000 MG/NS 250 ML IV SCH ×6 (01:48→18:01)
[2017-07-20] MEDS: HYDROmorphone HCL PF 2 MG/ML VIAL IV PUSH PRN ×6 (02:22→22:36)
[2017-07-20] MEDS: CHLORHEXIDINE GLUCONATE 2 % 1 PACK (2 CLOTHS) TOP SCH (03:08)
[2017-07-20 04:48] VITALS: BP 98/54; PULSE 81; RESP 18; TEMP 99; O2SAT 99
[2017-07-20 06:02] LABS: HEMATOCRIT 28.4 % (39.0-51.0); HEMOGLOBIN 8.9 GM/DL (13.0-17.0); MEAN CELL VOLUME 70.9 FL (80.0-100.0); MEAN CORPUSCULAR HEMOGLOBIN 22.1 PG (27.0-34.0); MEAN CORPUSCULAR HGB CONC 31.2 % (32.0-36.0); MEAN PLATELET VOLUME 6.9 FL (7.0-11.0); PLATELET COUNT 821 TH/MM3 (150-450); RED CELL DISTRIBUTION WIDTH 18.4 % (11.6-17.2); WHITE BLOOD COUNT 12.3 TH/MM3 (4.0-11.0)
[2017-07-20 06:30] LABS: BICARBONATE 28.4 MEQ/L (21.0-32.0); CALCIUM 8.6 MG/DL (8.5-10.1); CREATININE 0.62 MG/DL (0.60-1.30)
[2017-07-20 07:27] VITALS: BP 113/61; PULSE 81; RESP 17; TEMP 98.7; O2SAT 100
[2017-07-20] MEDS: DOCUSATE SODIUM 50 MG/SENNA 8.6 MG TAB PO SCH ×2 (08:08→21:01)
[2017-07-20] MEDS: FAMOTIDINE 20 MG TAB PO SCH ×2 (08:08→21:01)
[2017-07-20] MEDS ORDERED: PHARMACY ORDERED LAB ONE (09:45)
[2017-07-20] MEDS: SODIUM CHLOR 0.9% 1000 ML INJ 1,000 ML IV SCH ×2 (09:54→21:02)
--- NOTE | 2017-07-20 10:29 | HHI.PR ---
Subjective Remarks in no acute distress. still with back pain and says that oxycodone doesn't last long. afebrile. d/w the RN at the bedside. Objective Vitals Vital Signs Date Time Temp Pulse Resp B/P (MAP) Pulse Ox O2 Delivery O2 Flow Rate FiO2 07/20/17 07:27 98.7 81 17 113/61 (78) 100 07/20/17 05:53 16 07/20/17 04:48 99.0 81 18 98/54 (69) 99 07/20/17 00:16 99.1 86 18 114/68 (83) 97 07/19/17 20:20 98.2 83 18 113/60 (77) 96 07/19/17 19:44 20 07/19/17 18:00 Room Air 21 07/19/17 16:00 98.9 72 16 101/52 (68) 100 07/19/17 12:00 98.0 76 16 101/62 (75) 99 I/O 07/19/17 07/19/17 07/19/17 07/20/17 07/20/17 07/20/17 06:59 14:59 22:59 06:59 14:59 22:59 Intake Total 1330 ml 1000 ml 1686 ml Output Total 2000 ml 800 ml 1400 ml 2400 ml Balance -670 ml -800 ml -400 ml -714 ml Intake Oral 980 ml 1000 ml IV Total 350 ml 1686 ml Output Urine Total 2000 ml 800 ml 1400 ml 2400 ml # Voids 2 # Bowel Movements 3 1 Result Diagram: 07/20/17 0540 07/20/17 0540 Imaging Last Impressions Needle Biopsy/Aspiration X-Ray 07/16/17 1021 Signed Impressions: Service Date/Time: Sunday, July 16, 2017 13:12 - CONCLUSION: 1. Uncomplicated L3-4 disc aspiration. Although no fluid could be aspirated, following irrigation with 1 cc of non-bacteriostatic saline approximately 1.5 cc of nearly purulent fluid was aspirated. Daniel Gonzales MD Thoracic Spine MRI 07/15/17 0000 Signed Impressions: Service Date/Time: July 19:39 - CONCLUSION: Diffuse enhancement involving the lower two thirds of the T10 vertebral body and the upper two thirds of the T11 vertebral body suggestive of acute osteomyelitis likely surrounding an acute discitis at T10-11. There is enhancing epidural tissue along the left anterior lateral aspect of the thecal sac at this level which results in slight effacement of the thoracic cord and moderate spinal stenosis at this level. There is kyphosis of the thoracic spine at the T10-11 level. There is also acute compression deformities involving T10 and T11. Yonatan Blake MD Lumbar Spine MRI 07/15/17 0000 Signed Impressions: Service Date/Time: July 19:39 - CONCLUSION: 1. Enhancement of the lower two thirds of L3 and the upper two thirds of L4 consistent with probable acute osteomyelitis surrounding discitis at L3-4. There is also enhancing epidural tissue posterior to the L3-4 level which results in slight effacement of the anterior thecal sac and mild spinal stenosis at this level. Paravertebral enhancing soft tissue is noted surrounding L3 and L4. 2. Severe bilateral foraminal narrowing is noted at L3-4. 3. Moderate to severe bilateral foraminal narrowing is noted at L4-5. Yonatan Blake MD Chest X-Ray 07/15/17 0000 Signed Impressions: Service Date/Time: July 22:12 - CONCLUSION: 1. No acute cardiopulmonary disease. 2. Compression fractures and kyphosis at T10 and T11 consistent with known osteomyelitis and discitis at these levels. Yonatan Blake MD Cervical Spine MRI 07/15/17 0000 Signed Impressions: Service Date/Time: July 19:39 - CONCLUSION: 1. No evidence of acute osteomyelitis or acute discitis within the cervical spine. 2. Mild spinal stenosis, mild to moderate left neuroforaminal narrowing and mild right neural foraminal narrowing at C6-7 secondary to broad-based left paracentral/lateral disc bulge, facet joint hypertrophy and uncovertebral joint spurring. 3. Minimal spinal stenosis and mild bilateral foraminal narrowing at C5-6. 4. Cervical spondylosis at C5-6 and C6-7. Yonatan Blake MD Objective Remarks GENERAL: in no apparent distress but looks uncomfortable with the pain. CARDIOVASCULAR: Regular rate and regular rhythm without murmurs, gallops, or rubs. RESPIRATORY: Clear to auscultation. Breath sounds equal bilaterally. No wheezes , rales, or rhonchi. GASTROINTESTINAL: Abdomen soft, non-tender, nondistended. Normal, active bowel sounds MUSCULOSKELETAL: Extremities without clubbing, cyanosis, or edema. NEURO: Alert & Oriented x4 to person, place, time, situation. Moves all ext x4 Procedures needle aspiration of the lumbar spine Medications and IVs Inpatient Medications Acetaminophen (Tylenol) 650 mg Q6H PRN PO PAIN 1-3 AND/OR FEVER >101F Last administered on 07/16/17 16:31; Start 07/15/17 at 22:00 Albuterol/ Ipratropium (Duoneb Neb) 1 ampule Q2HR NEB PRN INH WHEEZING; Start 07/15/17 at 22:00 Cefepime HCl 2000 mg/Sodium Chloride 100 ml @ 200 mls/hr Q8H IV Last administered on 07/20/17 08:09; Start 07/16/17 at 17:00 Ceftriaxone Sodium 2000 mg/ Sodium Chloride 100 ml @ 200 mls/hr ONCE ONCE IV Last administered on 07/15/17at 20:47; Start 07/15/17 at 18:45; Stop 07/15/17 at 19: 14; Status DC Chlorhexidine Gluconate (Chlorhexidine 2% Cloth) 3 pack UNSCH PRN TOP HYGIENIC CARE; Start 07/15/17 at 22:00 Famotidine (Pepcid) 20 mg Q12HR PO Last administered on 07/20/17 08:08; Start 07/16/17 at 09:00 Hydromorphone HCl (Dilaudid Pf Inj) 1 mg Q3H PRN IV PUSH pain 8-10 or not taking po Last administered on 07/20/17 09:47; Start 07/17/17 at 15:30 Ketorolac Tromethamine (Toradol Inj) 30 mg ONCE ONCE IVP Last administered on 07/15/17 16:53; Start 07/15/17 at 16:15; Stop 07/15/17 at 16:16; Status DC Lactulose (Lactulose Liq) 30 ml DAILY PRN PO SEVERE CONSITIPATION Last administered on 07/19/17 08:09; Start 07/15/17 at 22:00 Magnesium Hydroxide (Milk Of Magnesia Liq) 30 ml Q12H PRN PO Mild constipation Last administered on 07/19/17 08:09; Start 07/15/17 at 22:00 Magnesium Oxide (Mag-Ox) 800 mg UNSCH PRN PO For Magnesium 1.2 - 1.6 mg/dL; Start 07/15/17 at 22:00 Magnesium Sulfate 2 gm/Sodium Chloride 100 ml @ 50 mls/hr UNSCH PRN IV For Magnesium 1.2 - 1.6 mg/dL; Start 07/15/17 at 22:00 Magnesium Sulfate 4 gm/Sodium Chloride 100 ml @ 50 mls/hr UNSCH PRN IV For Magnesium 0.9 - 1.1 mg/dL; Start 07/15/17 at 22:00 Miscellaneous Information SPECIFIC LAB TO BE DRAWN:VANCOMYCIN TROUGH DATE TO... ONCE ONCE .XX ; Start 07/20/17 at 09:45; Stop 07/20/17 at 09:46; Status DC Morphine Sulfate (Morphine Inj) 6 mg ONCE ONCE IV PUSH Last administered on 07/15/17at 18:45; Start 07/15/17 at 18:45; Stop 07/15/17 at 18:46; Status DC Ondansetron HCl (Zofran Inj) 4 mg Q6H PRN IV PUSH NAUSEA OR VOMITING; Start 07/15/17 at 22:00 Oxycodone HCl (Roxicodone) 10 mg Q4H PRN PO pain 4-7 Last administered on at 08:08; Start 07/18/17 at 13:00 Pharmacy Profile Note 0 ml @ 0 mls/hr UNSCH OTHER ; Start 07/17/17 at 11:15 Potassium Phosphate (K-Phos) 2,000 mg UNSCH PRN PO/TUBE SEE LABEL COMMENTS; Start 07/15/17 at 22:00 Potassium Phosphate 30 mmol/ Sodium Chloride 260 ml @ 42 mls/hr UNSCH PRN IV SEE LABEL COMMENTS; Start 07/15/17 at 22:00 Potassium Bicarb/ Potassium Chloride (K-Lyte Cl Eff) 50 meq UNSCH PRN PO For Potassium 3.3 - 3.5 mEq/L; Start 07/15/17 at 22:00 Potassium Chloride 100 ml @ 50 mls/hr Q2H PRN IV For Potassium 3.3 - 3.5 mEq/L ; Start 07/15/17 at 22:00 Senna/Docusate Sodium (Marisol-Colace) 1 tab BID PO Last administered on 07/20/17at 08:08; Start 07/16/17 at 09:00 Sodium Chloride 1,000 ml @ 84 mls/hr [id number] IV Last administered on 07/20/17at 09:54; Start 07/15/17 at 21:48 Sodium Chloride (NS Flush) 2 ml UNSCH PRN IV FLUSH FLUSH AFTER USING IV ACCESS Last administered on 07/18/17at 10:41; Start 07/15/17 at 16:15 Sodium Phosphate 30 mmol/Sodium Chloride 250 ml @ 42 mls/hr UNSCH PRN IV For Phosphorus < 2.5 mg/dL; Start 07/15/17 at 22:00 Temazepam (Restoril) 7.5 mg ONCE ONCE PO Last administered on 07/18/17at 22:41; Start 07/18/17 at 22:30; Stop 07/18/17 at 22:31; Status DC Vancomycin HCl 1000 mg/Sodium Chloride 250 ml @ 250 mls/hr Q8H IV Last administered on 07/20/17at 01:48; Start 07/19/17 at 10:00 Vancomycin HCl 1750 mg/Sodium Chloride 517.5 ml @ 258.75 mls/ hr ONCE ONCE IV Last administered on 07/15/17at 21:22; Start 07/15/17 at 18:45; Stop 07/15/17 at 20:44; Status DC A/P Problem List: (1) Discitis ICD Code: M46.40 - Discitis, unspecified, site unspecified Status: Acute (2) IV drug abuse ICD Code: F19.10 - Other psychoactive substance abuse, uncomplicated Status: Acute Assessment and Plan T-spine/L-spine discitis/osteomyelitis/IV drug abuse bacteremia with serratia Acute back pain s/p needle aspiration of the lumbar spine. initial blood cultures and wound culture with serratia. continue with IV antibiotics per ID. repeated blood cultures negative so far. echo negative for vegetation. continue with pain control; still with moderate to severe back pain; stop oxycodone; start on long-acting morphine- will monitor and adjust the regimen as needed. neurosurgery and ID following. anemia- likely due to chronic disease stool for blood pending. monitor H/H and transfuse as needed. thrombocytosis- reactive will monitor. DVT prophylaxis with SCD's. consulted PT. Problem Qualifiers (1) Discitis: Qualified Codes: M46.40 - Discitis, unspecified, site unspecified Evelio Moon MD Jul 20, 2017 10:29
[2017-07-20 11:46] VITALS: BP 125/74; PULSE 82; RESP 18; TEMP 98.2; O2SAT 100
[2017-07-20] MEDS: MORPHINE SULFATE 15 MG CONTROLLED RELEASE TAB PO SCH ×2 (11:51→21:01)
[2017-07-20 15:35] VITALS: BP 127/68; PULSE 78; RESP 19; TEMP 98.1; O2SAT 97
[2017-07-20 20:00] VITALS: BP 117/73; PULSE 83; RESP 19; TEMP 98.2; O2SAT 99
[2017-07-21] VITALS (8 sets, daily range): BP systolic 87–116; BP diastolic 50–76; PULSE 57–81; RESP 17–20; TEMP 97.8–98.5; O2SAT 98–100
[2017-07-21] MEDS: CEFEPIME INJ 2,000 MG in SODIUM CHLORIDE 0.9% INJ 100 ML IV SCH (01:44)
[2017-07-21] MEDS: HYDROmorphone HCL PF 2 MG/ML VIAL IV PUSH PRN ×6 (02:28→23:52)
[2017-07-21] MEDS: VANCOMYCIN 1,000 MG/NS 250 ML IV SCH ×2 (02:29)
[2017-07-21] MEDS: CHLORHEXIDINE GLUCONATE 2 % 1 PACK (2 CLOTHS) TOP SCH (03:36)
[2017-07-21] MEDS ORDERED: SODIUM CHLOR 0.9% 1000 ML INJ 1,000 ML IV ONE (05:00)
[2017-07-21 05:27] LABS: HEMATOCRIT 29.4 % (39.0-51.0); HEMOGLOBIN 9.4 GM/DL (13.0-17.0); MEAN CELL VOLUME 71.7 FL (80.0-100.0); MEAN CORPUSCULAR HEMOGLOBIN 22.8 PG (27.0-34.0); MEAN CORPUSCULAR HGB CONC 31.9 % (32.0-36.0); MEAN PLATELET VOLUME 7.1 FL (7.0-11.0); PLATELET COUNT 793 TH/MM3 (150-450); RED BLOOD COUNT 4.11 MIL/MM3 (4.50-5.90); RED CELL DISTRIBUTION WIDTH 18.9 % (11.6-17.2); WHITE BLOOD COUNT 9.9 TH/MM3 (4.0-11.0)
[2017-07-21 05:53] LABS: BICARBONATE 26.4 MEQ/L (21.0-32.0); CALCIUM 9.3 MG/DL (8.5-10.1); CREATININE 0.54 MG/DL (0.60-1.30)
[2017-07-21] MEDS: SODIUM CHLOR 0.9% 1000 ML INJ 1,000 ML IV SCH ×2 (07:43→18:22)
[2017-07-21] MEDS: MAGNESIUM HYDROXIDE SUSP 30 ML CUP PO PRN (09:17)
[2017-07-21] MEDS: DOCUSATE SODIUM 50 MG/SENNA 8.6 MG TAB PO SCH ×2 (09:18→21:59)
[2017-07-21] MEDS: MORPHINE SULFATE 15 MG CONTROLLED RELEASE TAB PO SCH ×2 (09:18→22:00)
[2017-07-21] MEDS: FAMOTIDINE 20 MG TAB PO SCH ×2 (09:18→22:00)
[2017-07-21] MEDS: cefTRIAXone INJ 2,000 MG in SODIUM CHLORIDE 0.9% INJ 100 ML IV SCH ×2 (09:40→21:59)
--- NOTE | 2017-07-21 12:11 | HHI.PR ---
Subjective Remarks in no acute distress. although looks comfortable, asking for ' more frequent IV Dilaudid'. no fever. no dizziness or sob. d/w the RN. Objective Vitals Vital Signs Date Time Temp Pulse Resp B/P (MAP) Pulse Ox O2 Delivery O2 Flow Rate FiO2 07/21/17 08:00 97.8 78 20 114/76 (89) 99 07/21/17 04:00 98.2 57 19 87/50 (62) 99 07/21/17 00:00 98.3 65 18 90/53 (65) 98 07/20/17 20:00 98.2 83 19 117/73 (88) 99 07/20/17 15:35 98.1 78 19 127/68 (87) 97 I/O 07/20/17 07/20/17 07/20/17 07/21/17 07/21/17 07/21/17 07:00 15:00 23:00 07:00 15:00 23:00 Intake Total 686 ml 840 ml 1696 ml Output Total 2400 ml 800 ml 900 ml 1000 ml Balance -1714 ml 40 ml -900 ml 696 ml Intake Oral 840 ml 800 ml IV Total 686 ml 896 ml Output Urine Total 2400 ml 800 ml 900 ml 1000 ml # Bowel Movements 0 Result Diagram: 07/21/17 0455 07/21/17 0455 Imaging Last Impressions Needle Biopsy/Aspiration X-Ray 07/16/17 1021 Signed Impressions: Service Date/Time: Sunday, July 16, 2017 13:12 - CONCLUSION: 1. Uncomplicated L3-4 disc aspiration. Although no fluid could be aspirated, following irrigation with 1 cc of non-bacteriostatic saline approximately 1.5 cc of nearly purulent fluid was aspirated. Daniel Gonzales MD Thoracic Spine MRI 07/15/17 0000 Signed Impressions: Service Date/Time: July 19:39 - CONCLUSION: Diffuse enhancement involving the lower two thirds of the T10 vertebral body and the upper two thirds of the T11 vertebral body suggestive of acute osteomyelitis likely surrounding an acute discitis at T10-11. There is enhancing epidural tissue along the left anterior lateral aspect of the thecal sac at this level which results in slight effacement of the thoracic cord and moderate spinal stenosis at this level. There is kyphosis of the thoracic spine at the T10-11 level. There is also acute compression deformities involving T10 and T11. Yonatan Blake MD Lumbar Spine MRI 07/15/17 0000 Signed Impressions: Service Date/Time: July 19:39 - CONCLUSION: 1. Enhancement of the lower two thirds of L3 and the upper two thirds of L4 consistent with probable acute osteomyelitis surrounding discitis at L3-4. There is also enhancing epidural tissue posterior to the L3-4 level which results in slight effacement of the anterior thecal sac and mild spinal stenosis at this level. Paravertebral enhancing soft tissue is noted surrounding L3 and L4. 2. Severe bilateral foraminal narrowing is noted at L3-4. 3. Moderate to severe bilateral foraminal narrowing is noted at L4-5. Yonatan Blake MD Chest X-Ray 07/15/17 0000 Signed Impressions: Service Date/Time: July 22:12 - CONCLUSION: 1. No acute cardiopulmonary disease. 2. Compression fractures and kyphosis at T10 and T11 consistent with known osteomyelitis and discitis at these levels. Yonatan Blake MD Cervical Spine MRI 07/15/17 0000 Signed Impressions: Service Date/Time: July 19:39 - CONCLUSION: 1. No evidence of acute osteomyelitis or acute discitis within the cervical spine. 2. Mild spinal stenosis, mild to moderate left neuroforaminal narrowing and mild right neural foraminal narrowing at C6-7 secondary to broad-based left paracentral/lateral disc bulge, facet joint hypertrophy and uncovertebral joint spurring. 3. Minimal spinal stenosis and mild bilateral foraminal narrowing at C5-6. 4. Cervical spondylosis at C5-6 and C6-7. Yonatan Blake MD Objective Remarks GENERAL: in no apparent distress but looks uncomfortable with the pain. CARDIOVASCULAR: Regular rate and regular rhythm without murmurs, gallops, or rubs. RESPIRATORY: Clear to auscultation. Breath sounds equal bilaterally. No wheezes , rales, or rhonchi. GASTROINTESTINAL: Abdomen soft, non-tender, nondistended. Normal, active bowel sounds MUSCULOSKELETAL: Extremities without clubbing, cyanosis, or edema. NEURO: Alert & Oriented x4 to person, place, time, situation. Moves all ext x4 Procedures needle aspiration of the lumbar spine Medications and IVs Inpatient Medications Acetaminophen (Tylenol) 650 mg Q6H PRN PO FEVER Last administered on 07/16/17at 16:31; Start 07/15/17 at 22:00 Albuterol/ Ipratropium (Duoneb Neb) 1 ampule Q2HR NEB PRN INH WHEEZING; Start 07/15/17 at 22:00 Cefepime HCl 2000 mg/Sodium Chloride 100 ml @ 200 mls/hr Q8H IV Last administered on 07/21/17at 01:44; Start 07/16/17 at 17:00; Stop 07/21/17 at 08:45; Status DC Ceftriaxone Sodium 2000 mg/ Sodium Chloride 100 ml @ 200 mls/hr Q12H IV Last administered on 07/21/17at 09:40; Start 07/21/17 at 09:00 Chlorhexidine Gluconate (Chlorhexidine 2% Cloth) 3 pack UNSCH PRN TOP HYGIENIC CARE; Start 07/15/17 at 22:00 Famotidine (Pepcid) 20 mg Q12HR PO Last administered on 07/21/17at 09:18; Start 07/16/17 at 09:00 Hydromorphone HCl (Dilaudid Pf Inj) 1 mg Q4HR PRN IV PUSH BREAKTHROUGH PAIN Last administered on 07/21/17at 11:42; Start 07/20/17 at 10:30 Ketorolac Tromethamine (Toradol Inj) 30 mg ONCE ONCE IVP Last administered on 07/15/17at 16:53; Start 07/15/17 at 16:15; Stop 07/15/17 at 16:16; Status DC Lactulose (Lactulose Liq) 30 ml DAILY PRN PO SEVERE CONSITIPATION Last administered on 07/19/17 08:09; Start 07/15/17 at 22:00 Magnesium Hydroxide (Milk Of Magnesia Liq) 30 ml Q12H PRN PO Mild constipation Last administered on 07/21/17at 09:17; Start 07/15/17 at 22:00 Magnesium Oxide (Mag-Ox) 800 mg UNSCH PRN PO For Magnesium 1.2 - 1.6 mg/dL; Start 07/15/17 at 22:00 Magnesium Sulfate 2 gm/Sodium Chloride 100 ml @ 50 mls/hr UNSCH PRN IV For Magnesium 1.2 - 1.6 mg/dL; Start 07/15/17 at 22:00 Magnesium Sulfate 4 gm/Sodium Chloride 100 ml @ 50 mls/hr UNSCH PRN IV For Magnesium 0.9 - 1.1 mg/dL; Start 07/15/17 at 22:00 Miscellaneous Information SPECIFIC LAB TO BE DRAWN:VANCOMYCIN TROUGH DATE TO... ONCE ONCE .XX ; Start 07/22/17 at 01:45; Stop 07/22/17 at 01:45; Status DC Morphine Sulfate (Morphine Inj) 6 mg ONCE ONCE IV PUSH Last administered on 07/15/17at 18:45; Start 07/15/17 at 18:45; Stop 07/15/17 at 18:46; Status DC Morphine Sulfate (Oramorph Sr) 15 mg Q12HR PO Last administered on 07/21/17at 09: 18; Start 07/20/17 at 11:00 Ondansetron HCl (Zofran Inj) 4 mg Q6H PRN IV PUSH NAUSEA OR VOMITING; Start 07/15/17 at 22:00 Oxycodone HCl (Roxicodone) 10 mg Q4H PRN PO pain 4-7 Last administered on at 08:08; Start 07/18/17 at 13:00; Stop 07/20/17 at 10:26; Status DC Pharmacy Profile Note 0 ml @ 0 mls/hr UNSCH OTHER ; Start 07/17/17 at 11:15; Stop 07/21/17 at 08:44; Status DC Potassium Phosphate (K-Phos) 2,000 mg UNSCH PRN PO/TUBE SEE LABEL COMMENTS; Start 07/15/17 at 22:00 Potassium Phosphate 30 mmol/ Sodium Chloride 260 ml @ 42 mls/hr UNSCH PRN IV SEE LABEL COMMENTS; Start 07/15/17 at 22:00 Potassium Bicarb/ Potassium Chloride (K-Lyte Cl Eff) 50 meq UNSCH PRN PO For Potassium 3.3 - 3.5 mEq/L; Start 07/15/17 at 22:00 Potassium Chloride 100 ml @ 50 mls/hr Q2H PRN IV For Potassium 3.3 - 3.5 mEq/L ; Start 07/15/17 at 22:00 Senna/Docusate Sodium (Marisol-Colace) 1 tab BID PO Last administered on 07/21/17at 09:18; Start 07/16/17 at 09:00 Sodium Chloride 1,000 ml @ 999 mls/hr BOLUS ONCE IV Last administered on at 05:03; Start 07/21/17 at 05:00; Stop 07/21/17 at 06:00; Status DC Sodium Chloride (NS Flush) 2 ml UNSCH PRN IV FLUSH FLUSH AFTER USING IV ACCESS Last administered on 07/18/17at 10:41; Start 07/15/17 at 16:15 Sodium Phosphate 30 mmol/Sodium Chloride 250 ml @ 42 mls/hr UNSCH PRN IV For Phosphorus < 2.5 mg/dL; Start 07/15/17 at 22:00 Temazepam (Restoril) 7.5 mg ONCE ONCE PO Last administered on 07/18/17at 22:41; Start 07/18/17 at 22:30; Stop 07/18/17 at 22:31; Status DC Vancomycin HCl 1000 mg/Sodium Chloride 250 ml @ 250 mls/hr Q8H IV Last administered on 07/21/17at 02:29; Start 07/19/17 at 10:00; Stop 07/21/17 at 08:44; Status DC Vancomycin HCl 1750 mg/Sodium Chloride 517.5 ml @ 258.75 mls/ hr ONCE ONCE IV Last administered on 07/15/17at 21:22; Start 07/15/17 at 18:45; Stop 07/15/17 at 20:44; Status DC A/P Problem List: (1) Discitis ICD Code: M46.40 - Discitis, unspecified, site unspecified Status: Acute (2) IV drug abuse ICD Code: F19.10 - Other psychoactive substance abuse, uncomplicated Status: Acute Assessment and Plan T-spine/L-spine discitis/osteomyelitis/IV drug abuse bacteremia with serratia Acute back pain s/p needle aspiration of the lumbar spine. initial blood cultures and wound culture with serratia. continue with IV antibiotics per ID. repeated blood cultures negative so far. echo negative for vegetation. continue with pain control started on long-acting morphine- will monitor and adjust the regimen as needed. neurosurgery and ID following. anemia- likely due to chronic disease stool for blood pending. monitor H/H and transfuse as needed. thrombocytosis- reactive will monitor. transient hypotension-resolved. hepatitis C- f/u as outpatient. DVT prophylaxis with SCD's. consulted PT. Problem Qualifiers (1) Discitis: Qualified Codes: M46.40 - Discitis, unspecified, site unspecified Evelio Moon MD Jul 21, 2017 12:11
--- NOTE | 2017-07-21 13:51 | HHI.NSPN ---
(Asad Archer) History Chief Complaint: Low back pain (Asad Archer) Interval History A 42-year-old gentleman with approximately 6 week history of low back pain more in the lumbar than thoracic. Denies any radiculopathy. States the pain has worsened progressively prompting an emergency room visit last evening. He also presented to the emergency room shortly after the pain started to exacerbate in late 05/2017. At that time MRI scan of the lumbar and thoracic spine was obtained and did not reveal any obvious infection with chronic changes long with an old T10 ____body fracture which he suffered after a trauma a couple years ago. Relates prior to a couple months ago, his back pain was tolerable with intermittent exacerbation. He does relate history of IV drug abuse with heroin an the last time he used it was about a week ago. Workup in the emergency room included an MRI scan of the complete spine including cervical , thoracic and lumbar spine. 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 There is also small left sided enhancement in the epidural space although no cord compression is noted with mild to moderate stenosis. He also has at the L3-4 level diskitis and osteomyelitis with a small ventral epidural enhancement area and mild stenosis. He related that last evening for less than a minute, he had some complaints of some paresthesias in legs but this has resolved. At this point he denies any weakness or numbness in the lower extremities and there is no incontinence. He has been voiding. He relates that lying flat on his back is very painful so he prefers to lie on his sides and being out of bed also with movement is painful. Blood cultures have been obtained and are growing out gram negative rods in the 2 cultures. 07/17: s/p CT guided needle aspiration of lumbar disc - cultures pending. c/o thoraco lumbar pain. denies radiculopathy, focal weakness. 07/19: 42-year-old male admitted for T10-11, L3-[address]-guided biopsy. No complaint of neck pain. Complains of abdominal and low back pain. No complaint of extremity pain weakness or numbness 07/21: The patient is awake and alert sitting up in bed watching TV. He states that he does have low back pain that is okay at present but worsened when he was ambulating yesterday. He denies any abdominal pain, nausea or vomiting. He denies any pain, numbness, tingling or weakness to the lower extremities. His neuro exam remains unchanged. (Asad Archer) Exam Results 07/19/17 07/19/17 07/20/17 07/20/17 07/21/17 07/21/17 06:00 18:00 06:00 18:00 06:00 18:00 Intake Total 1350 ml 1980 ml 1686 ml 840 ml 1696 ml Output Total 4200 ml 2400 ml 1100 ml 1600 ml Balance 1350 ml -2220 ml -714 ml -260 ml 96 ml Intake Oral 1980 ml 840 ml 800 ml IV Total 1350 ml 1686 ml 896 ml Output Urine Total 4200 ml 2400 ml 1100 ml 1600 ml # Voids 2 # Bowel Movements 4 0 Vital Signs Date Time Temp Pulse Resp B/P (MAP) Pulse Ox O2 Delivery O2 Flow Rate FiO2 07/21/17 12:00 98.2 79 19 114/69 (84) 98 07/21/17 08:00 97.8 78 20 114/76 (89) 99 07/21/17 04:00 98.2 57 19 87/50 (62) 99 07/21/17 00:00 98.3 65 18 90/53 (65) 98 07/20/17 20:00 98.2 83 19 117/73 (88) 99 07/20/17 15:35 98.1 78 19 127/68 (87) 97 07/20/17 11:46 98.2 82 18 125/74 (91) 100 07/20/17 07:27 98.7 81 17 113/61 (78) 100 07/20/17 05:53 16 07/20/17 04:48 99.0 81 18 98/54 (69) 99 07/20/17 00:16 99.1 86 18 114/68 (83) 97 07/19/17 20:20 98.2 83 18 113/60 (77) 96 07/19/17 19:44 20 07/19/17 18:00 Room Air 21 07/19/17 16:00 98.9 72 16 101/52 (68) 100 07/19/17 12:00 98.0 76 16 101/62 (75) 99 07/19/17 08:00 98.1 80 19 128/74 (92) 100 07/19/17 04:13 98.2 77 21 103/64 (77) 100 07/19/17 00:00 98.9 85 28 118/63 (81) 99 07/18/17 20:00 93 07/18/17 20:00 99.0 92 18 126/79 (95) 100 07/18/17 20:00 Room Air 07/18/17 16:49 99.6 80 20 116/66 (83) 99 (Asad Archer) Physical Examination GENERAL: The patient is awake & alert sitting up in bed watching TV. His affect is slightly flat but he readily interacts. He appears mildly uncomfortable and is not in any apparent distress. HEENT: Normocephalic, atraumatic. MUSCULOSKELETAL: HOBS[place] spontaneously w/o difficulty. Extremities NTTP. Upper midline lumbar spine & paraspinals TTP but thoracic & lower lumbar spine & paraspinals are NTTP. NEUROLOGIC: AAOx3. Speech clear & appropriate. Follows simple commands. Sensation intact to light touch to the extremities. Motor strength is 5/5 to all major flexion & extension groups of the extremities. (Asad Archer) Lab, Micro, Other Results Laboratory Tests Test 07/19/17 02:57 07/19/17 14:20 07/20/17 05:40 07/20/17 11:00 White Blood Count 15.9 TH/MM3 12.3 TH/MM3 Red Blood Count 3.89 MIL/MM3 4.00 MIL/MM3 Hemoglobin 8.8 GM/DL 8.9 GM/DL Hematocrit 27.5 % 28.4 % Mean Corpuscular Volume 70.8 FL 70.9 FL Mean Corpuscular Hemoglobin 22.6 PG 22.1 PG Mean Corpuscular Hemoglobin Concent 31.9 % 31.2 % Red Cell Distribution Width 18.3 % 18.4 % Platelet Count 825 TH/MM3 821 TH/MM3 Mean Platelet Volume 7.1 FL 6.9 FL Blood Urea Nitrogen 8 MG/DL 11 MG/DL Creatinine 0.55 MG/DL 0.62 MG/DL Random Glucose 98 MG/DL 94 MG/DL Calcium Level 8.7 MG/DL 8.6 MG/DL Sodium Level 134 MEQ/L 134 MEQ/L Potassium Level 4.0 MEQ/L 4.0 MEQ/L Chloride Level 99 MEQ/L 98 MEQ/L Carbon Dioxide Level 30.6 MEQ/L 28.4 MEQ/L Anion Gap 4 MEQ/L 8 MEQ/L Estimat Glomerular Filtration Rate 164 ML/MIN 143 ML/MIN Vancomycin Level Trough 5.7 MCG/ML 7.5 MCG/ML Urine Color YELLOW Urine Turbidity CLEAR Urine pH 7.0 Urine Specific Corn[place] 1.017 Urine Protein TRACE mg/dL Urine Glucose (UA) NEG mg/dL Urine Ketones NEG mg/dL Urine Occult Blood NEG Urine Nitrite NEG Urine Bilirubin NEG Urine Urobilinogen LESS THAN 2.0 MG/DL Urine Leukocyte Esterase NEG Urine RBC 1 /hpf Urine WBC 1 /hpf Urine Mucus FEW /lpf Microscopic Urinalysis Comment CULT NOT INDICATED Test 07/21/17 04:55 07/21/17 11:30 White Blood Count 9.9 TH/MM3 Red Blood Count 4.11 MIL/MM3 Hemoglobin 9.4 GM/DL Hematocrit 29.4 % Mean Corpuscular Volume 71.7 FL Mean Corpuscular Hemoglobin 22.8 PG Mean Corpuscular Hemoglobin Concent 31.9 % Red Cell Distribution Width 18.9 % Platelet Count 793 TH/MM3 Mean Platelet Volume 7.1 FL Blood Urea Nitrogen 12 MG/DL Creatinine 0.54 MG/DL Random Glucose 83 MG/DL Calcium Level 9.3 MG/DL Sodium Level 136 MEQ/L Potassium Level 4.4 MEQ/L Chloride Level 100 MEQ/L Carbon Dioxide Level 26.4 MEQ/L Anion Gap 10 MEQ/L Estimat Glomerular Filtration Rate 168 ML/MIN Urine Opiates Screen POS Urine Barbiturates Screen NEG Urine Amphetamines Screen NEG Urine Benzodiazepines Screen NEG Urine Cocaine Screen NEG Urine Cannabinoids Screen NEG (Asad Archer) Medical Decision Making Impression and Plan Impression: 1. T10 11, L3 4 discitis. Intact neurologic exam Patient doing fairly well, still w/pain to the upper lumbar spine region, motor strength & sensation is intact. Reviewed labs for today. Interval resolution of leukocytosis and improvement in haemoglobin level & thrombocytosis. Plan: Continue therapy, mobilized out of bed as tolerated Abdominal exam benign this morning. Continue to monitor vital signs, laboratory. Follow-up CT scan as indicated based on clinical course. Infectious disease following. Remains on IV antibiotics. On IV cefepime and vancomycin (Asad Archer) Attending Statement The exam, history, and the medical decision-making described in the above note were completed with the assistance of the mid-level provider. I reviewed and agree with the findings presented. I attest that I had a [id number] encounter with the patient on the same day, and personally performed and documented my assessment and findings in the medical record. On my examination of 07/21/2017 the patient appears to have mild persistent abdominal discomfort but improved compared to 07/19/17. Mild diffuse abdominal tenderness to deep palpation. Lower extremity sensorimotor function remains intact. No evidence of radiculopathy. Continuing antibiotics Discussed treatment plan with patient (Toño Buckley MD) Asad Archer Jul 21, 2017 13:51 Toño Buckley MD Jul 21, 2017 20:53
[2017-07-22] VITALS: BP 108/62; PULSE 68; RESP 18; TEMP 98.2; O2SAT 100
[2017-07-22] MEDS ORDERED: PHARMACY ORDERED LAB ONE (01:45)
[2017-07-22] MEDS: CHLORHEXIDINE GLUCONATE 2 % 1 PACK (2 CLOTHS) TOP SCH (03:17)
[2017-07-22 04:00] VITALS: BP 122/74; PULSE 65; RESP 20; TEMP 97.4; O2SAT 100
[2017-07-22] MEDS: HYDROmorphone HCL PF 2 MG/ML VIAL IV PUSH PRN (04:12)
[2017-07-22 05:13] LABS: HEMATOCRIT 27.7 % (39.0-51.0); HEMOGLOBIN 8.9 GM/DL (13.0-17.0); MEAN CELL VOLUME 72.6 FL (80.0-100.0); MEAN CORPUSCULAR HEMOGLOBIN 23.4 PG (27.0-34.0); MEAN CORPUSCULAR HGB CONC 32.3 % (32.0-36.0); MEAN PLATELET VOLUME 7.3 FL (7.0-11.0); PLATELET COUNT 852 TH/MM3 (150-450); RED BLOOD COUNT 3.82 MIL/MM3 (4.50-5.90); RED CELL DISTRIBUTION WIDTH 18.6 % (11.6-17.2); WHITE BLOOD COUNT 11.1 TH/MM3 (4.0-11.0)
[2017-07-22 05:38] LABS: BICARBONATE 28.3 MEQ/L (21.0-32.0); CALCIUM 8.9 MG/DL (8.5-10.1); CREATININE 0.52 MG/DL (0.60-1.30)
[2017-07-22 08:00] VITALS: BP 109/78; PULSE 72; RESP 20; TEMP 97.6; O2SAT 100
[2017-07-22 09:00] VITALS: PULSE 82
[2017-07-22] MEDS: DOCUSATE SODIUM 50 MG/SENNA 8.6 MG TAB PO SCH (09:09)
[2017-07-22] MEDS: FAMOTIDINE 20 MG TAB PO SCH (09:09)
[2017-07-22] MEDS: cefTRIAXone INJ 2,000 MG in SODIUM CHLORIDE 0.9% INJ 100 ML IV SCH (09:10)
[2017-07-22] MEDS: MORPHINE SULFATE 15 MG CONTROLLED RELEASE TAB PO SCH (09:10)
--- NOTE | 2017-07-22 10:09 | HHI.PR ---
Subjective Remarks in no acute distress. asking for ' more IV pain medication'. afebrile. d/w the RN. Objective Vitals Vital Signs Date Time Temp Pulse Resp B/P (MAP) Pulse Ox O2 Delivery O2 Flow Rate FiO2 07/22/17 04:00 97.4 65 20 122/74 (90) 100 07/22/17 00:22 20 07/22/17 00:00 98.2 68 18 108/62 (77) 100 07/21/17 20:30 75 07/21/17 20:00 98.3 77 17 116/62 (80) 100 07/21/17 16:15 81 07/21/17 16:00 98.5 77 18 114/65 (81) 07/21/17 12:00 98.2 79 19 114/69 (84) 98 I/O 07/21/17 07/21/17 07/21/17 07/22/17 07/22/17 07/22/17 07:00 15:00 23:00 07:00 15:00 23:00 Intake Total 1696 ml 840 ml 600 ml Output Total 1000 ml 1700 ml 1500 ml Balance 696 ml -860 ml -900 ml Intake Oral 800 ml 840 ml 600 ml IV Total 896 ml Output Urine Total 1000 ml 1700 ml 1500 ml # Voids 1 # Bowel Movements 0 1 Result Diagram: 07/22/17 0438 07/22/17 0438 Imaging Last Impressions Needle Biopsy/Aspiration X-Ray 07/16/17 1021 Signed Impressions: Service Date/Time: Sunday, July 16, 2017 13:12 - CONCLUSION: 1. Uncomplicated L3-4 disc aspiration. Although no fluid could be aspirated, following irrigation with 1 cc of non-bacteriostatic saline approximately 1.5 cc of nearly purulent fluid was aspirated. Daniel Gonzales MD Thoracic Spine MRI 07/15/17 0000 Signed Impressions: Service Date/Time: July 19:39 - CONCLUSION: Diffuse enhancement involving the lower two thirds of the T10 vertebral body and the upper two thirds of the T11 vertebral body suggestive of acute osteomyelitis likely surrounding an acute discitis at T10-11. There is enhancing epidural tissue along the left anterior lateral aspect of the thecal sac at this level which results in slight effacement of the thoracic cord and moderate spinal stenosis at this level. There is kyphosis of the thoracic spine at the T10-11 level. There is also acute compression deformities involving T10 and T11. Yonatan Blake MD Lumbar Spine MRI 07/15/17 0000 Signed Impressions: Service Date/Time: July 19:39 - CONCLUSION: 1. Enhancement of the lower two thirds of L3 and the upper two thirds of L4 consistent with probable acute osteomyelitis surrounding discitis at L3-4. There is also enhancing epidural tissue posterior to the L3-4 level which results in slight effacement of the anterior thecal sac and mild spinal stenosis at this level. Paravertebral enhancing soft tissue is noted surrounding L3 and L4. 2. Severe bilateral foraminal narrowing is noted at L3-4. 3. Moderate to severe bilateral foraminal narrowing is noted at L4-5. Yonatan Blake MD Chest X-Ray 07/15/17 0000 Signed Impressions: Service Date/Time: July 22:12 - CONCLUSION: 1. No acute cardiopulmonary disease. 2. Compression fractures and kyphosis at T10 and T11 consistent with known osteomyelitis and discitis at these levels. Yonatan Blake MD Cervical Spine MRI 07/15/17 0000 Signed Impressions: Service Date/Time: July 19:39 - CONCLUSION: 1. No evidence of acute osteomyelitis or acute discitis within the cervical spine. 2. Mild spinal stenosis, mild to moderate left neuroforaminal narrowing and mild right neural foraminal narrowing at C6-7 secondary to broad-based left paracentral/lateral disc bulge, facet joint hypertrophy and uncovertebral joint spurring. 3. Minimal spinal stenosis and mild bilateral foraminal narrowing at C5-6. 4. Cervical spondylosis at C5-6 and C6-7. Yonatan Blake MD Objective Remarks GENERAL: in no apparent distress but looks uncomfortable with the pain. CARDIOVASCULAR: Regular rate and regular rhythm without murmurs, gallops, or rubs. RESPIRATORY: Clear to auscultation. Breath sounds equal bilaterally. No wheezes , rales, or rhonchi. GASTROINTESTINAL: Abdomen soft, non-tender, nondistended. Normal, active bowel sounds MUSCULOSKELETAL: Extremities without clubbing, cyanosis, or edema. NEURO: Alert & Oriented x4 to person, place, time, situation. Moves all ext x4 Procedures needle aspiration of the lumbar spine Medications and IVs Inpatient Medications Acetaminophen (Tylenol) 650 mg Q6H PRN PO FEVER Last administered on 07/16/17at 16:31; Start 07/15/17 at 22:00 Albuterol/ Ipratropium (Duoneb Neb) 1 ampule Q2HR NEB PRN INH WHEEZING; Start 07/15/17 at 22:00 Cefepime HCl 2000 mg/Sodium Chloride 100 ml @ 200 mls/hr Q8H IV Last administered on 07/21/17at 01:44; Start 07/16/17 at 17:00; Stop 07/21/17 at 08:45; Status DC Ceftriaxone Sodium 2000 mg/ Sodium Chloride 100 ml @ 200 mls/hr Q12H IV Last administered on 07/22/17at 09:10; Start 07/21/17 at 09:00 Chlorhexidine Gluconate (Chlorhexidine 2% Cloth) 3 pack UNSCH PRN TOP HYGIENIC CARE; Start 07/15/17 at 22:00 Famotidine (Pepcid) 20 mg Q12HR PO Last administered on 07/22/17at 09:09; Start 07/16/17 at 09:00 Hydromorphone HCl (Dilaudid Pf Inj) 1 mg Q4HR PRN IV PUSH BREAKTHROUGH PAIN Last administered on 07/22/17at 04:12; Start 07/20/17 at 10:30 Ketorolac Tromethamine (Toradol Inj) 30 mg ONCE ONCE IVP Last administered on 07/15/17at 16:53; Start 07/15/17 at 16:15; Stop 07/15/17 at 16:16; Status DC Lactulose (Lactulose Liq) 30 ml DAILY PRN PO SEVERE CONSITIPATION Last administered on 07/19/17at 08:09; Start 07/15/17 at 22:00 Magnesium Hydroxide (Milk Of Magnesia Liq) 30 ml Q12H PRN PO Mild constipation Last administered on 07/21/17at 09:17; Start 07/15/17 at 22:00 Magnesium Oxide (Mag-Ox) 800 mg UNSCH PRN PO For Magnesium 1.2 - 1.6 mg/dL; Start 07/15/17 at 22:00 Magnesium Sulfate 2 gm/Sodium Chloride 100 ml @ 50 mls/hr UNSCH PRN IV For Magnesium 1.2 - 1.6 mg/dL; Start 07/15/17 at 22:00 Magnesium Sulfate 4 gm/Sodium Chloride 100 ml @ 50 mls/hr UNSCH PRN IV For Magnesium 0.9 - 1.1 mg/dL; Start 07/15/17 at 22:00 Miscellaneous Information SPECIFIC LAB TO BE DRAWN:VANCOMYCIN TROUGH DATE TO... ONCE ONCE .XX ; Start 07/22/17 at 01:45; Stop 07/22/17 at 01:45; Status DC Morphine Sulfate (Morphine Inj) 6 mg ONCE ONCE IV PUSH Last administered on 07/15/17at 18:45; Start 07/15/17 at 18:45; Stop 07/15/17 at 18:46; Status DC Morphine Sulfate (Oramorph Sr) 15 mg Q12HR PO Last administered on 07/22/17at 09: 10; Start 07/20/17 at 11:00 Ondansetron HCl (Zofran Inj) 4 mg Q6H PRN IV PUSH NAUSEA OR VOMITING; Start 07/15/17 at 22:00 Oxycodone HCl (Roxicodone) 10 mg Q4H PRN PO pain 4-7 Last administered on at 08:08; Start 07/18/17 at 13:00; Stop 07/20/17 at 10:26; Status DC Pharmacy Profile Note 0 ml @ 0 mls/hr UNSCH OTHER ; Start 07/17/17 at 11:15; Stop 07/21/17 at 08:44; Status DC Potassium Phosphate (K-Phos) 2,000 mg UNSCH PRN PO/TUBE SEE LABEL COMMENTS; Start 07/15/17 at 22:00 Potassium Phosphate 30 mmol/ Sodium Chloride 260 ml @ 42 mls/hr UNSCH PRN IV SEE LABEL COMMENTS; Start 07/15/17 at 22:00 Potassium Bicarb/ Potassium Chloride (K-Lyte Cl Eff) 50 meq UNSCH PRN PO For Potassium 3.3 - 3.5 mEq/L; Start 07/15/17 at 22:00 Potassium Chloride 100 ml @ 50 mls/hr Q2H PRN IV For Potassium 3.3 - 3.5 mEq/L ; Start 07/15/17 at 22:00 Senna/Docusate Sodium (Marisol-Colace) 1 tab BID PO Last administered on 07/22/17at 09:09; Start 07/16/17 at 09:00 Sodium Chloride 1,000 ml @ 999 mls/hr BOLUS ONCE IV Last administered on at 05:03; Start 07/21/17 at 05:00; Stop 07/21/17 at 06:00; Status DC Sodium Chloride (NS Flush) 2 ml UNSCH PRN IV FLUSH FLUSH AFTER USING IV ACCESS Last administered on 07/18/17at 10:41; Start 07/15/17 at 16:15 Sodium Phosphate 30 mmol/Sodium Chloride 250 ml @ 42 mls/hr UNSCH PRN IV For Phosphorus < 2.5 mg/dL; Start 07/15/17 at 22:00 Temazepam (Restoril) 7.5 mg ONCE ONCE PO Last administered on 07/18/17at 22:41; Start 07/18/17 at 22:30; Stop 07/18/17 at 22:31; Status DC Vancomycin HCl 1000 mg/Sodium Chloride 250 ml @ 250 mls/hr Q8H IV Last administered on 07/21/17at 02:29; Start 07/19/17 at 10:00; Stop 07/21/17 at 08:44; Status DC Vancomycin HCl 1750 mg/Sodium Chloride 517.5 ml @ 258.75 mls/ hr ONCE ONCE IV Last administered on 07/15/17at 21:22; Start 07/15/17 at 18:45; Stop 07/15/17 at 20:44; Status DC A/P Problem List: (1) Discitis ICD Code: M46.40 - Discitis, unspecified, site unspecified Status: Acute (2) IV drug abuse ICD Code: F19.10 - Other psychoactive substance abuse, uncomplicated Status: Acute Assessment and Plan T-spine/L-spine discitis/osteomyelitis/IV drug abuse bacteremia with serratia Acute back pain s/p needle aspiration of the lumbar spine. initial blood cultures and wound culture with serratia. continue with IV antibiotics per ID. repeated blood cultures negative so far. echo negative for vegetation. continue with pain control started on long-acting morphine- will monitor and adjust the regimen as needed; will increase po morphine and gradually taper off IV Dilaudid. patient with drug-seeking behavior. neurosurgery and ID following. anemia- likely due to chronic disease stool for blood pending. monitor H/H and transfuse as needed. thrombocytosis- reactive will monitor. transient hypotension-resolved. hepatitis C- f/u as outpatient. DVT prophylaxis with SCD's. consulted PT. Problem Qualifiers (1) Discitis: Qualified Codes: M46.40 - Discitis, unspecified, site unspecified Evelio Moon MD Jul 22, 2017 10:09
[2017-07-22] MEDS ORDERED: HYDROmorphone HCL PF 2 MG/ML VIAL IV PUSH PRN (10:15)
[2017-07-22] MEDS ORDERED: MORPHINE SULFATE 15 MG CONTROLLED RELEASE TAB PO SCH (14:00)
--- NOTE | 2017-07-22 21:46 | EKG ---
Date Performed: 07/21/2017 Time Performed: 13:35:26 PTAGE: 42 years EKG: Sinus rhythm POSSIBLE ANTERIOR MYOCARDIAL INFARCTION , OF INDETERMINATE AGE ABNORMAL ECG NO PREVIOUS TRACING DOCTOR: Deep Schroeder Interpretating Date/Time 07/22/2017 21:44:47
--- NOTE | 2017-07-27 13:24 | HHI.DS ---
Discharge Summary Admission Date Jul 15, 2017 at 21:58 Discharge Date: Jul 22, 2017 Admitting Diagnosis discitis, epidural abscess (1) Discitis ICD Code: M46.40 - Discitis, unspecified, site unspecified Status: Acute (2) IV drug abuse ICD Code: F19.10 - Other psychoactive substance abuse, uncomplicated Status: Acute Procedures needle aspiration of the lumbar spine Brief History - From Admission This is a 42-year-old male with history of IV drug abuse who presents with new onset and worsening back pain. He states that his lower back has been hurting for the approximately last 5 months, although it is been worse acutely over the last week. He denies fever, chills. Does endorse IV drug abuse, most recently approximately 6 months ago. He does endorse lower extremity paresthesias over the last 1-2 days. Denies lower extremity weakness. Denies loss of bowel or bladder control. In the emergency department MRI of the total spine demonstrated T10 as well as L3 enhancement suggestive of acute osteomyelitis and discitis. Imaging Last Impressions Needle Biopsy/Aspiration X-Ray 07/16/17 1021 Signed Impressions: Service Date/Time: Sunday, July 16, 2017 13:12 - CONCLUSION: 1. Uncomplicated L3-4 disc aspiration. Although no fluid could be aspirated, following irrigation with 1 cc of non-bacteriostatic saline approximately 1.5 cc of nearly purulent fluid was aspirated. Daniel Gonzales MD Thoracic Spine MRI 07/15/17 0000 Signed Impressions: Service Date/Time: July 19:39 - CONCLUSION: Diffuse enhancement involving the lower two thirds of the T10 vertebral body and the upper two thirds of the T11 vertebral body suggestive of acute osteomyelitis likely surrounding an acute discitis at T10-11. There is enhancing epidural tissue along the left anterior lateral aspect of the thecal sac at this level which results in slight effacement of the thoracic cord and moderate spinal stenosis at this level. There is kyphosis of the thoracic spine at the T10-11 level. There is also acute compression deformities involving T10 and T11. Yonatan Blake MD Lumbar Spine MRI 07/15/17 0000 Signed Impressions: Service Date/Time: July 19:39 - CONCLUSION: 1. Enhancement of the lower two thirds of L3 and the upper two thirds of L4 consistent with probable acute osteomyelitis surrounding discitis at L3-4. There is also enhancing epidural tissue posterior to the L3-4 level which results in slight effacement of the anterior thecal sac and mild spinal stenosis at this level. Paravertebral enhancing soft tissue is noted surrounding L3 and L4. 2. Severe bilateral foraminal narrowing is noted at L3-4. 3. Moderate to severe bilateral foraminal narrowing is noted at L4-5. Yonatan Blake MD Chest X-Ray 07/15/17 0000 Signed Impressions: Service Date/Time: July 22:12 - CONCLUSION: 1. No acute cardiopulmonary disease. 2. Compression fractures and kyphosis at T10 and T11 consistent with known osteomyelitis and discitis at these levels. Yonatan Blake MD Cervical Spine MRI 07/15/17 0000 Signed Impressions: Service Date/Time: July 19:39 - CONCLUSION: 1. No evidence of acute osteomyelitis or acute discitis within the cervical spine. 2. Mild spinal stenosis, mild to moderate left neuroforaminal narrowing and mild right neural foraminal narrowing at C6-7 secondary to broad-based left paracentral/lateral disc bulge, facet joint hypertrophy and uncovertebral joint spurring. 3. Minimal spinal stenosis and mild bilateral foraminal narrowing at C5-6. 4. Cervical spondylosis at C5-6 and C6-7. Yonatan Blake MD PE at Discharge GENERAL: in no apparent distress but looks uncomfortable with the pain. CARDIOVASCULAR: Regular rate and regular rhythm without murmurs, gallops, or rubs. RESPIRATORY: Clear to auscultation. Breath sounds equal bilaterally. No wheezes , rales, or rhonchi. GASTROINTESTINAL: Abdomen soft, non-tender, nondistended. Normal, active bowel sounds MUSCULOSKELETAL: Extremities without clubbing, cyanosis, or edema. NEURO: Alert & Oriented x4 to person, place, time, situation. Moves all ext x4 Hospital Course T-spine/L-spine discitis/osteomyelitis/IV drug abuse bacteremia with serratia Acute back pain s/p needle aspiration of the lumbar spine. initial blood cultures and wound culture with serratia. continue with IV antibiotics per ID. repeated blood cultures negative so far. echo negative for vegetation. continue with pain control started on long-acting morphine- will monitor and adjust the regimen as needed; will increase po morphine and gradually taper off IV Dilaudid. patient with drug-seeking behavior. neurosurgery and ID following. anemia- likely due to chronic disease stool for blood pending. monitor H/H and transfuse as needed. thrombocytosis- reactive will monitor. transient hypotension-resolved. Discharge Disposition: Discharge Home (patient signed out against medical advice.) Discharge Time: <= 30 minutes Evelio Moon MD Jul 27, 2017 13:24
== END 2017-07-22 12:57 | disposition left against medical advice (07) | DRG 539 ==
LOC: NEPE 13:00 → NEDA 21:58 → N03A 07-16 00:39 → N03B 07-17 20:06
PROVIDERS: ADMIT Internal Medicine; ATTEND Internal Medicine
DX: M46.26 Osteomyelitis of vertebra, lumbar region (principal); G06.2 Extradural and subdural abscess, unspecified; R78.81 Bacteremia; M46.24 Osteomyelitis of vertebra, thoracic region; M48.02 Spinal stenosis, cervical region; M48.04 Spinal stenosis, thoracic region; M46.46 Discitis, unspecified, lumbar region; M46.44 Discitis, unspecified, thoracic region; G89.29 Other chronic pain; M40.204 Unspecified kyphosis, thoracic region; R20.2 Paresthesia of skin; M47.9 Spondylosis, unspecified; F11.10 Opioid abuse, uncomplicated; M48.061 Spinal stenosis, lumbar region without neurogenic claudication; D63.8 Anemia in other chronic diseases classified elsewhere; R03.1 Nonspecific low blood-pressure reading; R10.30 Lower abdominal pain, unspecified; B19.20 Unspecified viral hepatitis C without hepatic coma; D72.829 Elevated white blood cell count, unspecified; M47.812 Spondylosis without myelopathy or radiculopathy, cervical region; M60.9 Myositis, unspecified; F17.210 Nicotine dependence, cigarettes, uncomplicated; R79.89 Other specified abnormal findings of blood chemistry; Z76.5 Malingerer [conscious simulation]
CPT/HCPCS: 62267; 71046; 72156; 72157; 72158; 76937; 77002; 77003; 80048; 80053; 80074; 80202; 80307; 81001; 82728; 83540; 83550; 85025; 85027; 85652; 86140; 86403; 86703; 87015; 87040; 87070; 87077; 87102; 87116; 87176; 87186; 87205; 87206; 87641; 93005; 93306; 94640; 94667; 94668; 96365; 96367; 96375; 96376; 99152; 99153; A9579; J0692; J0696; J1170; J1885; J2250; J2270; J2405; J3010; J3370; J7030; J7040; J7050; L0200; L0484